=== PATIENT | female | born 1935 | race African-American/Black ===

== ENCOUNTER 2016-05-07 11:57 | Inpatient (IN) | payer OTHER ==
[~2016-05-07] VITALS: Ht 165.1 cm; Wt 81.6 kg
[~2016-05-07 11:57] MED LIST: IBUP-1007 PO
[2016-05-07 16:05] VITALS: BP 123/57
[2016-05-07 18:54] VITALS: BP 123/57
[2016-05-07 18:58] LABS: BASO # 0.1 x10^3/uL (0.0-0.2); BASO % 1 % (0-3); EOS % 2 % (0-3); LYMPH # 3.4 x10^3/uL (1.0-4.8); LYMPH % 40 % (24-48); MEAN CORPUSCULAR HEMOGLOBIN 20 pg (25-35); MEAN CORPUSCULAR HGB CONC 31 g/dL (31-37); MEAN CORPUSCULAR VOLUME 65 fL (79-100); MONO % 8 % (0-9); NEUT % 50 % (31-73); PLATELET COUNT 491 x10^3/uL (140-400); RED BLOOD COUNT 2.82 x10^6/uL (3.50-5.40); RED CELL DISTRIBUTION WIDTH 18.9 % (11.5-14.5); WHITE BLOOD COUNT 8.5 x10^3/uL (4.0-11.0)
[2016-05-07 19:00] VITALS: BP 108/53
[2016-05-07] MEDS ORDERED: ALPRAZOLAM 0.25 MG TABLET PO PRN (19:00)
[2016-05-07 19:04] LABS: HEMATOCRIT 18.3 % (36.0-47.0); HEMOGLOBIN 5.6 g/dL (12.0-15.5)
[2016-05-07 19:14] LABS: % SAT IRON 3 % (15-34); IRON,SERUM 12 ug/dL (50-170)
[2016-05-07] MEDS ORDERED: OMEP40CA5 PO (19:20)
[2016-05-07] MEDS ORDERED: HYDR12.53 PO (19:20)
[2016-05-07] MEDS ORDERED: MAGN400T22 PO (19:23)
[2016-05-07 19:30] LABS: ALBUMIN/GLOBULIN RATIO 0.7 (1.0-1.7); CALCIUM 8.4 mg/dL (8.5-10.1); CREATININE 0.9 mg/dL (0.6-1.0); GFR 72.5; POTASSIUM 3.9 mmol/L (3.5-5.1); TOTAL BILIRUBIN 0.4 mg/dL (0.2-1.0); TOTAL PROTEIN 7.4 g/dL (6.4-8.2)
[2016-05-07] MEDS: POTASSIUM CL 20MEQ D5-0.45NACL 1,000 ML IV SCH (19:34)
[2016-05-07 19:59] LABS: ANISOCYTOSIS SLIGHT; HYPOCHROMIA MARKED; MICROCYTOSIS MARKED; PLT ESTIMATE INCREASED (ADEQUATE); POLYCHROMASIA SLIGHT
[2016-05-07 20:00] LABS: SCHISTOCYTES FEW; TARGET CELLS OCC
[2016-05-07 21:04] LABS: BILIRUBIN,URINE NEGATIVE (NEG); GLUCOSE,URINE NEGATIVE (NEG); NITRITE,URINE POSITIVE (NEG); PROTEIN,URINE NEGATIVE (NEG-TRACE); UROBILINOGEN,URINE 0.2 mg/dL (0.2 mg/dL)
[2016-05-07 21:12] LABS: BACTERIA,URINE FEW /HPF (0-FEW); RBC,URINE 0 /HPF (0-2); SQUAMOUS EPITHELIAL CELL,UR MANY /LPF
[2016-05-07] MEDS: SMZ/TMP 800/160MG TABLET. PO SCH (22:04)
[2016-05-07 23:00] VITALS: BP 113/55
[2016-05-08 03:00] VITALS: BP 110/63
[2016-05-08 05:05] LABS: RED BLOOD COUNT 2.62 x10^6/uL (3.50-5.40); RED CELL DISTRIBUTION WIDTH 18.9 % (11.5-14.5); WHITE BLOOD COUNT 5.9 x10^3/uL (4.0-11.0)
[2016-05-08 05:13] LABS: HEMOGLOBIN 5.2 g/dL (12.0-15.5)
[2016-05-08 05:31] LABS: CALCIUM 8.5 mg/dL (8.5-10.1); CREATININE 0.8 mg/dL (0.6-1.0); GFR 83.1
[2016-05-08 06:34] LABS: NEG OBC FOB NEG; POS OBC FOB POS
[2016-05-08 07:00] VITALS: BP 111/57
[2016-05-08] MEDS: PANTOPRAZOLE 40 MG TABLET. PO SCH (08:24)
[2016-05-08] MEDS: SMZ/TMP 800/160MG TABLET. PO SCH ×2 (08:24→22:19)
[2016-05-08] MEDS: POTASSIUM CL 20MEQ D5-0.45NACL 1,000 ML IV SCH (08:29)
--- NOTE | 2016-05-08 09:00 | RAD ---
Indication anemia. Possible internal bleeding. PA and lateral views of the chest were obtained. Comparison is made to an examination 11/26/2015. Note is made of CT examinations of the chest 11/29/2015 and 03/17/2016. There is some interstitial prominence relative to the previous exam suggesting mild interstitial edema. Interstitial pneumonitis is not entirely excluded. There is no consolidated pneumonia. Significant pleural fluid is not present. There is no pneumothorax. There is slight wedging of midthoracic vertebral body segments likely chronic and appearing similar. IMPRESSION: No consolidated pneumonia seen. Mild interstitial prominence suggesting mild interstitial edema or interstitial pneumonitis. Clinical correlation advised
[2016-05-08] MEDS ORDERED: FERRIC CARBOXYMALTOSE 750 MG in IV NORMAL SALINE 250ML 250 ML IV ONE (09:45)
--- NOTE | 2016-05-08 09:56 | PDOC2 ---
GI CONSULT Reason For Consult: Anemia HPI: HPI: 81 y/o female admitted by her PCP, Dr. Batres, who she has seen for about 2 years since moving to from [place], [place]. Labs significant for Hgb 5.6 ( recheck 5.2) w/ low indices and low iron. Hemoccult was negative. Transfusion was ordered; she has declined. She is asymptomatic and "feels great." She reports a lifelong h/o anemia w/ normal colonoscopy years ago. No previous EGD. She took iron at one point but stopped because it made her feel strange. Denies n/v, reflux/dyspepsia, dysphagia, weight loss, change in appetite, bloating, abdominal pain, diarrhea, constipation, hematemesis, hematuria, hematochezia, and melena. Home med list shows ibuprofen and omeprazole; she denies taking these but says she takes hydrocodone for leg pain. She is on Bactrim for UTI along w/ PPI. Has been NPO otherwise. PMH: PMH: HTN, HLD FH: Family History: Cancer (breast) Social History: Smoke: No Drugs: None ROS: GEN: Denies fevers, chills, sweats HEENT: Denies blurred vision, sore throat CV: Denies chest pain RESP: Denies shortness of air, cough GI: Per HPI : Denies hematuria, dysuria ENDO: Denies weight changes NEURO: Denies confusion, dizziness MSK: occasional leg pain SKIN: Denies jaundice, pruritus VItals: Vitals: Vital Signs Date Time Temp Pulse Resp B/P Pulse Ox O2 Delivery O2 Flow Rate FiO2 05/08/16 08:16 Room Air 05/08/16 07:00 98.7 83 18 111/57 96 98.7 Labs: Labs: Laboratory Tests Test 05/07/16 18:35 05/07/16 20:40 05/08/16 04:30 White Blood Count 8.5x10^3/uL (4.0-11.0) 5.9x10^3/uL (4.0-11.0) Red Blood Count 2.82x10^6/uL (3.50-5.40) 2.62x10^6/uL (3.50-5.40) Hemoglobin 5.6g/dL (12.0-15.5) 5.2g/dL (12.0-15.5) Hematocrit 18.3% (36.0-47.0) 17.0% (36.0-47.0) Mean Corpuscular Volume 65fL (79-100) 65fL (79-100) Mean Corpuscular Hemoglobin 20pg (25-35) 20pg (25-35) Mean Corpuscular Hemoglobin Concent 31g/dL (31-37) 30g/dL (31-37) Red Cell Distribution Width 18.9% (11.5-14.5) 18.9% (11.5-14.5) Platelet Count 491x10^3/uL (140-400) 451x10^3/uL (140-400) Neutrophils (%) (Auto) 50% (31-73) Lymphocytes (%) (Auto) 40% (24-48) Monocytes (%) (Auto) 8% (0-9) Eosinophils (%) (Auto) 2% (0-3) Basophils (%) (Auto) 1% (0-3) Neutrophils # (Auto) 4.3x10^3uL (1.8-7.7) Lymphocytes # (Auto) 3.4x10^3/uL (1.0-4.8) Monocytes # (Auto) 0.6x10^3/uL (0.0-1.1) Eosinophils # (Auto) 0.1x10^3/uL (0.0-0.7) Basophils # (Auto) 0.1x10^3/uL (0.0-0.2) Segmented Neutrophils % 54% (35-66) Lymphocytes % 38% (24-48) Monocytes % 8% (0-10) Platelet Estimate Increased (ADEQUATE) Polychromasia Slight Hypochromasia Marked Anisocytosis Slight Microcytosis Marked Target Cells Occ Schistocytes Few Sodium Level 140mmol/L (136-145) 143mmol/L (136-145) Potassium Level 3.9mmol/L (3.5-5.1) 4.0mmol/L (3.5-5.1) Chloride Level 104mmol/L (98-107) 107mmol/L (98-107) Carbon Dioxide Level 28mmol/L (21-32) 27mmol/L (21-32) Anion Gap 8 (6-14) 9 (6-14) Blood Urea Nitrogen 19mg/dL (7-20) 17mg/dL (7-20) Creatinine 0.9mg/dL (0.6-1.0) 0.8mg/dL (0.6-1.0) Estimated GFR (Cockcroft-Gault) 72.5 83.1 BUN/Creatinine Ratio 21 (6-20) Glucose Level 115mg/dL (70-99) 92mg/dL (70-99) Calcium Level 8.4mg/dL (8.5-10.1) 8.5mg/dL (8.5-10.1) Iron Level 12ug/dL (50-170) Total Iron Binding Capacity 438ug/dL (250-450) Iron Saturation 3% (15-34) Ferritin 7ng/mL (8-252) Total Bilirubin 0.4mg/dL (0.2-1.0) Aspartate Amino Transf (AST/SGOT) 34U/L (15-37) Alanine Aminotransferase (ALT/SGPT) 31U/L (14-59) Alkaline Phosphatase 69U/L (46-116) Total Protein 7.4g/dL (6.4-8.2) Albumin 3.0g/dL (3.4-5.0) Albumin/Globulin Ratio 0.7 (1.0-1.7) Urine Collection Type Unknown Urine Color Yellow Urine Clarity Clear Urine pH 7.0 Urine Specific [place] 1.015 Urine Protein Negativemg/dL (NEG-TRACE) Urine Glucose (UA) Negativemg/dL (NEG) Urine Ketones (Stick) Negativemg/dL (NEG) Urine Blood Negative (NEG) Urine Nitrite Positive (NEG) Urine Bilirubin Negative (NEG) Urine Urobilinogen Dipstick 0.2mg/dL (0.2 mg/dL) Urine Leukocyte Esterase Large (NEG) Urine RBC 0/HPF (0-2) Urine WBC 11-20/HPF (0-4) Urine Squamous Epithelial Cells Many/LPF Urine Bacteria Few/HPF (0-FEW) Urine Mucus Slight/LPF Stool Occult Blood Negative (NEG) Allergies: Coded Allergies: No Known Drug Allergies (Unverified , 11/26/15) Medications: Current Medications Medications (Trade) Dose Ordered Sig/Becky Route PRN Reason Start Time Stop Time Status Last Admin Dose Admin Potassium Chloride/Dextrose/ Sod Cl (KCl 20 Meq In D5W-1/2 NS) 1,000 ml @ 75 mls/hr [id number] IV 05/07/16 17:30 05/08/16 08:29 Pantoprazole Sodium (Protonix) 40 mg DAILYAC PO 05/08/16 07:30 05/08/16 08:24 Trimethoprim/ Sulfamethoxazole (Bactrim Ds) 1 tab BID PO 05/07/16 22:00 05/08/16 08:24 PE: GEN: NAD HEENT: Atraumatic, PERRL LUNGS: CTAB HEART: RR ABD: NABS, S/ND/NT EXTREMITY: No edema SKIN: No rashes, no jaundice NEURO/PSYCH: A & O 3 A/P: A/P: DERRICK -seems long history of this -Hgb in 5s - refusing transfusion -asymptomatic CRC screen -reports normal colonoscopy years ago -- Keep NPO for EGD this afternoon w/ Dr. Whitley r/o upper GI source - pt agreeable. D/w GI lab. ANEUDY RAYMUNDO May 08, 2016 09:55
[2016-05-08 11:00] VITALS: BP 131/72
--- NOTE | 2016-05-08 11:09 | PDOC ---
OBJECTIVE Vital Signs Vital Signs Date Time Temp Pulse Resp B/P Pulse Ox O2 Delivery O2 Flow Rate FiO2 05/08/16 08:16 Room Air 05/08/16 07:00 98.7 83 18 111/57 96 Room Air 98.7 05/08/16 03:00 98.3 84 20 110/63 96 Room Air 98.3 05/07/16 23:00 98.5 83 20 113/55 94 Room Air 98.5 05/07/16 20:00 Room Air 05/07/16 19:00 98.1 86 20 108/53 92 Room Air 98.1 05/07/16 18:54 98.5 89 123/57 99 98.5 05/07/16 18:25 Room Air 05/07/16 16:05 98.5 89 20 123/57 99 Room Air 98.5 I & O Intake and Output 05/08/16 07:00 Intake Total 280 ml Output Total 800 ml Balance -520 ml Intake Oral 280 ml Output Urine Total 800 ml # Voids 3 # Bowel Movements 1 ASSESSMENT/PLAN Assessment/Plan [id number] H&P dictated Problems: COMMENT Lab Laboratory Tests Test 05/07/16 18:35 05/07/16 20:40 05/08/16 04:30 White Blood Count 8.5x10^3/uL (4.0-11.0) 5.9x10^3/uL (4.0-11.0) Red Blood Count 2.82x10^6/uL (3.50-5.40) 2.62x10^6/uL (3.50-5.40) Hemoglobin 5.6g/dL (12.0-15.5) 5.2g/dL (12.0-15.5) Hematocrit 18.3% (36.0-47.0) 17.0% (36.0-47.0) Mean Corpuscular Volume 65fL (79-100) 65fL (79-100) Mean Corpuscular Hemoglobin 20pg (25-35) 20pg (25-35) Mean Corpuscular Hemoglobin Concent 31g/dL (31-37) 30g/dL (31-37) Red Cell Distribution Width 18.9% (11.5-14.5) 18.9% (11.5-14.5) Platelet Count 491x10^3/uL (140-400) 451x10^3/uL (140-400) Neutrophils (%) (Auto) 50% (31-73) Lymphocytes (%) (Auto) 40% (24-48) Monocytes (%) (Auto) 8% (0-9) Eosinophils (%) (Auto) 2% (0-3) Basophils (%) (Auto) 1% (0-3) Neutrophils # (Auto) 4.3x10^3uL (1.8-7.7) Lymphocytes # (Auto) 3.4x10^3/uL (1.0-4.8) Monocytes # (Auto) 0.6x10^3/uL (0.0-1.1) Eosinophils # (Auto) 0.1x10^3/uL (0.0-0.7) Basophils # (Auto) 0.1x10^3/uL (0.0-0.2) Segmented Neutrophils % 54% (35-66) Lymphocytes % 38% (24-48) Monocytes % 8% (0-10) Platelet Estimate Increased (ADEQUATE) Polychromasia Slight Hypochromasia Marked Anisocytosis Slight Microcytosis Marked Target Cells Occ Schistocytes Few Sodium Level 140mmol/L (136-145) 143mmol/L (136-145) Potassium Level 3.9mmol/L (3.5-5.1) 4.0mmol/L (3.5-5.1) Chloride Level 104mmol/L (98-107) 107mmol/L (98-107) Carbon Dioxide Level 28mmol/L (21-32) 27mmol/L (21-32) Anion Gap 8 (6-14) 9 (6-14) Blood Urea Nitrogen 19mg/dL (7-20) 17mg/dL (7-20) Creatinine 0.9mg/dL (0.6-1.0) 0.8mg/dL (0.6-1.0) Estimated GFR (Cockcroft-Gault) 72.5 83.1 BUN/Creatinine Ratio 21 (6-20) Glucose Level 115mg/dL (70-99) 92mg/dL (70-99) Calcium Level 8.4mg/dL (8.5-10.1) 8.5mg/dL (8.5-10.1) Iron Level 12ug/dL (50-170) Total Iron Binding Capacity 438ug/dL (250-450) Iron Saturation 3% (15-34) Ferritin 7ng/mL (8-252) Total Bilirubin 0.4mg/dL (0.2-1.0) Aspartate Amino Transf (AST/SGOT) 34U/L (15-37) Alanine Aminotransferase (ALT/SGPT) 31U/L (14-59) Alkaline Phosphatase 69U/L (46-116) Total Protein 7.4g/dL (6.4-8.2) Albumin 3.0g/dL (3.4-5.0) Albumin/Globulin Ratio 0.7 (1.0-1.7) Urine Collection Type Unknown Urine Color Yellow Urine Clarity Clear Urine pH 7.0 Urine Specific [place] 1.015 Urine Protein Negativemg/dL (NEG-TRACE) Urine Glucose (UA) Negativemg/dL (NEG) Urine Ketones (Stick) Negativemg/dL (NEG) Urine Blood Negative (NEG) Urine Nitrite Positive (NEG) Urine Bilirubin Negative (NEG) Urine Urobilinogen Dipstick 0.2mg/dL (0.2 mg/dL) Urine Leukocyte Esterase Large (NEG) Urine RBC 0/HPF (0-2) Urine WBC 11-20/HPF (0-4) Urine Squamous Epithelial Cells Many/LPF Urine Bacteria Few/HPF (0-FEW) Urine Mucus Slight/LPF Stool Occult Blood Negative (NEG) JUAN TINEO MD May 08, 2016 11:09
[2016-05-08 11:21] LABS: FOLIC ACID >19.9 ng/mL (>3.0)
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
[2016-05-08] MEDS ORDERED: GLYCOPYRROLATE 1 MG/5 ML VIAL. ONE (13:20)
[2016-05-08] MEDS ORDERED: PROPOFOL 20 ML IV ONE (14:27)
[2016-05-08] MEDS ORDERED: METOPROLOL TARTRATE 5 MG/5 ML VIAL. ONE (14:28)
[2016-05-08] MEDS ORDERED: IV RINGERS,LACTATED 1000ML 1,000 ML IV ONE (14:30)
--- NOTE | 2016-05-08 14:42 | PDOC4 ---
PROCEDURE Procedure EGD/biopsies Indication: DERRICK/historically negative colonoscopy recently. Meds: per anesthesia. Findings: E-normal, GEJ at 35cm. G-Small HH, otherwise normal. Biopsies from antrum re: H.pylori. D-diverticulum in distal second portion, otherwise normal to 3rd portion. Biopsies second portion re: occult celiac. Tolerated well. Imp: HH duodenal 'tic. Rec: Await pathology. If no transfusion, at least iv or po iron? If transfused, OK to dismiss over the weekend unless other issue. Thanks. GLORIA ATKINS MD May 08, 2016 14:42
[2016-05-08 15:00] VITALS: BP 131/58
--- NOTE | 2016-05-08 15:34 | PDOC ---
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
[2016-05-08] MEDS ORDERED: IRON SUCROSE COMPLEX 500 MG in IV NORMAL SALINE 250ML 250 ML IV ONE (16:00)
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
--- NOTE | 2016-05-08 17:05 | RAD ---
Chest CT without contrast Clinical indications: Follow-up of mediastinal mass. Comparison: November 29, 2015 and March 17, 2016. Technique: Noncontrast helical CT scanning of the chest was performed. Without contrast, the sensitivity to detect organ pathology is decreased. PQRS Compliance Statement: One or more of the following individualized dose reduction techniques were utilized for this examination: 1. Automated exposure control 2. Adjustment of the mA and/or kV according to patient size 3. Use of iterative reconstruction technique Findings: Again seen is a round mass lesion within the anterior mediastinum with a peripheral calcified rim. This measures 3 cm in greatest dimension. Small posterior lobular process of this mass is seen which measures 9 mm. Both of these findings are unchanged. No enlarging thoracic lymphadenopathy is seen. The heart size is at the upper limits of normal. Calcified atheromatous disease of the coronary arteries is seen. No pericardial effusion is evident. A small hiatal hernia is seen. Calcified atheromatous disease of the thoracic aorta is seen. No focal aneurysmal dilatation is evident. Small infiltrate or atelectasis is seen within the posterior costophrenic angle on the right side. Mild atelectasis is seen within the posterior left lung base. Bilateral calcified granulomas are seen. No pleural effusion or pneumothorax is seen. No adrenal mass is seen. Again seen is a 3.4 cm cyst within the right lobe of liver. No osteolytic process is seen. IMPRESSION: Stable anterior mediastinal mass from November 29, 2015. Recommend continued chest CT follow-up in 6 months. New small lung infiltrate or atelectasis within the posterior right costophrenic angle.
[2016-05-08 19:00] VITALS: BP 115/56
[2016-05-08 23:00] VITALS: BP 132/61
[2016-05-09] VITALS (14 sets, daily range): BP systolic 116–163; BP diastolic 48–80
[2016-05-09] MEDS: POTASSIUM CL 20MEQ D5-0.45NACL 1,000 ML IV SCH ×2 (03:55→08:49)
[2016-05-09 04:54] LABS: RED BLOOD COUNT 2.69 x10^6/uL (3.50-5.40); RED CELL DISTRIBUTION WIDTH 18.7 % (11.5-14.5); WHITE BLOOD COUNT 7.8 x10^3/uL (4.0-11.0)
[2016-05-09 05:09] LABS: HEMATOCRIT 17.4 % (36.0-47.0); HEMOGLOBIN 5.4 g/dL (12.0-15.5)
[2016-05-09] MEDS: FERROUS SULFATE 325 MG TABLET PO SCH ×3 (08:48→20:30)
[2016-05-09] MEDS: PANTOPRAZOLE 40 MG TABLET. PO SCH (08:49)
[2016-05-09] MEDS: SMZ/TMP 800/160MG TABLET. PO SCH ×2 (08:49→20:30)
--- NOTE | 2016-05-09 12:06 | PDOC ---
Provider Note Provider Note getting prbc, vss, no new problems- hb 5.4, iron low, rest ok- has had egd, result na - will see in am unless dr ruiz discharges as she wishes, needs colonoscopy as well RADHA ENGLE MD May 09, 2016 12:06
--- NOTE | 2016-05-09 14:39 | PDOC ---
PULMONARY PROGRESS NOTES Subjective Afebrile, no complaints. No sob. No chest pain, pressure nor palpitations. Vitals Vital Signs Date Time Temp Pulse Resp B/P Pulse Ox O2 Delivery O2 Flow Rate FiO2 05/09/16 14:11 98.1 83 20 145/59 98.1 05/09/16 11:00 98 Room Air 05/08/16 14:40 2.0 ROS: No Nausea, No Chest Pain, No Abdominal Pain General: Alert, Oriented X4, No acute distress Lungs: Clear Cardiovascular: S1, S2 Abdomen: Soft, Non-tender Neuro Exam: Alert, Oriented, Normal Speech Extremities: No Edema Skin: Warm, Dry, No Rashes Labs Laboratory Tests Test 05/07/16 18:35 05/07/16 20:40 05/08/16 04:30 05/09/16 04:00 White Blood Count 8.5x10^3/uL (4.0-11.0) 5.9x10^3/uL (4.0-11.0) 7.8x10^3/uL (4.0-11.0) Red Blood Count 2.82x10^6/uL (3.50-5.40) 2.62x10^6/uL (3.50-5.40) 2.69x10^6/uL (3.50-5.40) Hemoglobin 5.6g/dL (12.0-15.5) 5.2g/dL (12.0-15.5) 5.4g/dL (12.0-15.5) Hematocrit 18.3% (36.0-47.0) 17.0% (36.0-47.0) 17.4% (36.0-47.0) Mean Corpuscular Volume 65fL (79-100) 65fL (79-100) 65fL (79-100) Mean Corpuscular Hemoglobin 20pg (25-35) 20pg (25-35) 20pg (25-35) Mean Corpuscular Hemoglobin Concent 31g/dL (31-37) 30g/dL (31-37) 31g/dL (31-37) Red Cell Distribution Width 18.9% (11.5-14.5) 18.9% (11.5-14.5) 18.7% (11.5-14.5) Platelet Count 491x10^3/uL (140-400) 451x10^3/uL (140-400) 484x10^3/uL (140-400) Neutrophils (%) (Auto) 50% (31-73) Lymphocytes (%) (Auto) 40% (24-48) Monocytes (%) (Auto) 8% (0-9) Eosinophils (%) (Auto) 2% (0-3) Basophils (%) (Auto) 1% (0-3) Neutrophils # (Auto) 4.3x10^3uL (1.8-7.7) Lymphocytes # (Auto) 3.4x10^3/uL (1.0-4.8) Monocytes # (Auto) 0.6x10^3/uL (0.0-1.1) Eosinophils # (Auto) 0.1x10^3/uL (0.0-0.7) Basophils # (Auto) 0.1x10^3/uL (0.0-0.2) Segmented Neutrophils % 54% (35-66) Lymphocytes % 38% (24-48) Monocytes % 8% (0-10) Platelet Estimate Increased (ADEQUATE) Polychromasia Slight Hypochromasia Marked Anisocytosis Slight Microcytosis Marked Target Cells Occ Schistocytes Few Sodium Level 140mmol/L (136-145) 143mmol/L (136-145) Potassium Level 3.9mmol/L (3.5-5.1) 4.0mmol/L (3.5-5.1) Chloride Level 104mmol/L (98-107) 107mmol/L (98-107) Carbon Dioxide Level 28mmol/L (21-32) 27mmol/L (21-32) Anion Gap 8 (6-14) 9 (6-14) Blood Urea Nitrogen 19mg/dL (7-20) 17mg/dL (7-20) Creatinine 0.9mg/dL (0.6-1.0) 0.8mg/dL (0.6-1.0) Estimated GFR (Cockcroft-Gault) 72.5 83.1 BUN/Creatinine Ratio 21 (6-20) Glucose Level 115mg/dL (70-99) 92mg/dL (70-99) Calcium Level 8.4mg/dL (8.5-10.1) 8.5mg/dL (8.5-10.1) Iron Level 12ug/dL (50-170) Total Iron Binding Capacity 438ug/dL (250-450) Iron Saturation 3% (15-34) Ferritin 7ng/mL (8-252) Total Bilirubin 0.4mg/dL (0.2-1.0) Aspartate Amino Transf (AST/SGOT) 34U/L (15-37) Alanine Aminotransferase (ALT/SGPT) 31U/L (14-59) Alkaline Phosphatase 69U/L (46-116) Total Protein 7.4g/dL (6.4-8.2) Albumin 3.0g/dL (3.4-5.0) Albumin/Globulin Ratio 0.7 (1.0-1.7) Vitamin B12 Level 702pg/mL (211-946) Folic Acid (LAB) >19.9ng/mL (>3.0) Urine Collection Type Unknown Urine Color Yellow Urine Clarity Clear Urine pH 7.0 Urine Specific [place] 1.015 Urine Protein Negativemg/dL (NEG-TRACE) Urine Glucose (UA) Negativemg/dL (NEG) Urine Ketones (Stick) Negativemg/dL (NEG) Urine Blood Negative (NEG) Urine Nitrite Positive (NEG) Urine Bilirubin Negative (NEG) Urine Urobilinogen Dipstick 0.2mg/dL (0.2 mg/dL) Urine Leukocyte Esterase Large (NEG) Urine RBC 0/HPF (0-2) Urine WBC 11-20/HPF (0-4) Urine Squamous Epithelial Cells Many/LPF Urine Bacteria Few/HPF (0-FEW) Urine Mucus Slight/LPF Stool Occult Blood Negative (NEG) Laboratory Tests Test 05/09/16 04:00 White Blood Count 7.8x10^3/uL (4.0-11.0) Red Blood Count 2.69x10^6/uL (3.50-5.40) Hemoglobin 5.4g/dL (12.0-15.5) Hematocrit 17.4% (36.0-47.0) Mean Corpuscular Volume 65fL (79-100) Mean Corpuscular Hemoglobin 20pg (25-35) Mean Corpuscular Hemoglobin Concent 31g/dL (31-37) Red Cell Distribution Width 18.7% (11.5-14.5) Platelet Count 484x10^3/uL (140-400) Medications Active Scripts Medications Dose Route/Sig Days Date Category Mag-Oxide (Magnesium Oxide) 400 Mg Tablet 1 Tab PO BID 05/07/16 Reported Hydrochlorothiazide Capsule (Hydrochlorothiazide) 12.5 Mg Capsule 2 Cap PO DAILY 05/07/16 Reported Omeprazole 40 Mg Capsule.dr 1 Cap PO DAILY 05/07/16 Reported Ibuprofen 600 Mg Tablet 600 Mg PO PRN Q6HRS PRN 11/26/[address] Chest 05/08/16: a round mass lesion within the anterior mediastinum with a peripheral calcified rim. This measures 3 cm in greatest dimension. Small posterior lobular process of this mass is seen which measures 9 mm. Both of these findings are unchanged. No enlarging thoracic lymphadenopathy is seen. The heart size is at the upper limits of normal. Calcified atheromatous disease of the coronary arteries is seen. No pericardial effusion is evident. A small hiatal hernia is seen. Calcified atheromatous disease of the thoracic aorta is seen. No focal aneurysmal dilatation is evident. Small infiltrate or atelectasis is seen within the posterior costophrenic angle on the right side. Mild atelectasis is seen within the posterior left lung base. Bilateral calcified granulomas are seen. No pleural effusion or pneumothorax is seen. No adrenal mass is seen. Again seen is a 3.4 cm cyst within the right lobe of liver. No osteolytic process is seen. Impression . IMPRESSION: 1. Partially calcified unchanged mediastinal mass which was seen initially in November and remain unchanged on 03/17/2016, CT chest. 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 2. Abnormal chest x-ray was slightly prominent interstitial markings may be related to mild anemic heart failure. Clinically, asymptomatic. 3. No significant history of tobacco use. 4. Acute on chronic anemia to be managed by GI. Plan . RECOMMENDATIONS: 1. CT chest with no change to mediastinal mass. Follow up CT scan in 6 months. 2. Management of anemia per GI. - transfused this Am. No apparent difficulties. 3. Follow results of EGD. 4. Further dispo per PCP 5. Ok from Pulm standpoint to DC to home when cleared by other services. FREIDA LANE MD May 09, 2016 14:38
[2016-05-10] MEDS: POTASSIUM CL 20MEQ D5-0.45NACL 1,000 ML IV SCH (01:51)
[2016-05-10 03:59] VITALS: BP 130/66
[2016-05-10 07:00] VITALS: BP 124/56
[2016-05-10] MEDS: SMZ/TMP 800/160MG TABLET. PO SCH (08:32)
[2016-05-10] MEDS: FERROUS SULFATE 325 MG TABLET PO SCH ×2 (08:32→14:23)
[2016-05-10] MEDS: PANTOPRAZOLE 40 MG TABLET. PO SCH (08:32)
--- NOTE | 2016-05-10 09:15 | DISCH ---
DISCHARGE INSTRUCTIONS Condition on Discharge Condition on Discharge: Stable Activity After Discharge Activity Instructions for Disc: Activity as tolerated Diet after Discharge Diet after Discharge: Regular Follow-Up Follow up with: as scheduled RADHA ENGLE MD May 10, 2016 09:15
--- NOTE | 2016-05-10 09:25 | PDOC ---
Provider Note Provider Note [id number] RADHA ENGLE MD May 10, 2016 09:25
[2016-05-10 09:55] LABS: HEMATOCRIT 26.8 % (36.0-47.0); HEMOGLOBIN 8.7 g/dL (12.0-15.5); RED BLOOD COUNT 3.91 x10^6/uL (3.50-5.40); WHITE BLOOD COUNT 7.2 x10^3/uL (4.0-11.0)
[2016-05-10 11:00] VITALS: BP 130/70
--- NOTE | 2016-05-10 15:16 | DS ---
DATE OF DISCHARGE: 05/10/2016 HOSPITAL SUMMARY: An 81-year-old black female with a long history of iron deficiency anemia, who came in because of increasing weakness, fatigue, and shortness of breath and has decided ultimately to have transfusions and a GI workup done. Her admitting hemoglobin was 5.6, low MCV of 65, platelets were high and on 05/09/2016, prior to transfusion, the hemoglobin was still 5.4. After 2 units, her hemoglobin is pending at this time. Chemistry profile was unremarkable. B12 and folic acid were normal. Iron was low at 12. TIBC high at 438 and ferritin low at 7. Urine showed white blood cells and positive nitrite, but urine culture only grew out urogenital violetta. Stool for occult blood was negative. CT scan of the chest showed a stable anterior mediastinal mass that is calcified and suspected to be a thymoma without growth. Chest x-ray unchanged as well. She underwent EGD in the hospital, which was reportedly normal and she has been given 2 units of packed red blood cells and is feeling better. I recommended further transfusions today if her hemoglobin is around 7 as suspected, but she has declined, wishes to go home prior to lab value being known and will consider a colonoscopy as an outpatient, though she has not decided whether she will pursue that procedure that is needed or not. FINAL DIAGNOSES: 1. Chronic iron deficiency anemia, etiology undetermined. 2. 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 OPERATIONS AND PROCEDURES: EGD. COMPLICATIONS: None. CONSULTATIONS: Dr. Diego, Dr. Fall. DISPOSITION: No home meds. She is to resume iron tablets twice a day. No aspirin, Aleve, or ibuprofen products. Follow up with Dr. Batres as scheduled in 1 week for repeat hemoglobin and further evaluation from there. Prognosis is guarded given the unknown etiology of her iron deficiency. RADHA ENGLE MD DR: FRANCIS/yuri JOB#: [id number] / [id number]
--- NOTE | 2016-05-12 16:39 | PATHOLOGY ---
PATHOLOGY REPORT * * * * * * * * FINAL DIAGNOSIS: A. Duodenal biopsy, second portion duodenum: - No significant pathologic abnormalities. B. Gastric biopsy, antrum: - Chronic gastritis, mild. COMMENT: Sections of the second portion duodenum biopsy reveal segments of duodenal mucosa. Where best-oriented, the mucosal villi appear normal. There are no sprue-like changes or significant inflammatory changes. Sections of the gastric biopsy reveal segments of gastric antral and antral/body transition mucosa showing mild chronic inflammation. An immunoperoxidase stain for Helicobacter is obtained. No Helicobacter organisms are identified. There is no evidence of malignancy. (JPM:csd; d/t: 05/12/2016) Immunoperoxidase stains: Helicobacter pylori (B1) REPORT ELECTRONICALLY SIGNED BY: Akil Granados M.D. DATE/TIME: 05/12/2016 16:37 * * * * * * * * GROSS PATHOLOGY: A. Received in formalin labeled "Anthony Man, second part duodenum," are two segments of victoria soft tissue measuring 0.5 x 0.5 x 0.1 cm in aggregate dimensions and ranging from 0.4 to 0.5 cm in maximum dimension. The specimen is submitted entirely in cassette A1. B. Received in formalin labeled "Anthony Man, antrum," are two segments of victoria soft tissue measuring 0.7 x 0.4 x 0.1 cm in aggregate dimensions and ranging from 0.2 to 0.7 cm in maximum dimension. The specimen is submitted entirely in cassette B1. (CAA; 05/11/2016) INITIAL CPT CODE(S): A; 52903 B; 67167, 37812 Professional services [place] [place] [address] Technical services performed by [facility] at [address] [place] [address], [facility] [address] [address]. SPECIMEN(S) RECEIVED: A.2nd portion duodenum B.Antrum CLINICAL HISTORY: Anemia PATIENT: ANTHONY MAN /AGE: 10 1935 (Age: 81) PATIENT #: [id number] ALT CASE #: SPECIMEN COLLECTION DATE: 05/08/2016 SPECIMEN RECEIVED DATE: 05/11/2016 [facility] - [address] [place] [address] - PHONE: [phone] * * * END OF REPORT * * *
== END 2016-05-10 15:15 | disposition home or self-care (01) | DRG 812 ==
LOC: 5 SOUTH 15:52
PROVIDERS: ADMIT Internal Medicine; ATTEND Internal Medicine
PROC: 30233N1 Transfusion of Nonautologous Red Blood Cells into Peripheral Vein, Percutaneous Approach (ICD-10-PCS; principal; 2016-05-07)
PROC: 0DB68ZX Excision of Stomach, Via Natural or Artificial Opening Endoscopic, Diagnostic (ICD-10-PCS; 2016-05-08)
PROC: 0DB98ZX Excision of Duodenum, Via Natural or Artificial Opening Endoscopic, Diagnostic (ICD-10-PCS; 2016-05-08 15:00)
DX: D50.9 Iron deficiency anemia, unspecified (principal); E44.1 Mild protein-calorie malnutrition; E78.5 Hyperlipidemia, unspecified; I10 Essential (primary) hypertension; D15.0 Benign neoplasm of thymus; K21.9 Gastro-esophageal reflux disease without esophagitis; M19.90 Unspecified osteoarthritis, unspecified site; M81.0 Age-related osteoporosis without current pathological fracture; Z80.3 Family history of malignant neoplasm of breast; Z87.440 Personal history of urinary (tract) infections; K44.9 Diaphragmatic hernia without obstruction or gangrene
CPT/HCPCS: 36415; 71020; 71250; 80048; 80053; 81001; 82274; 82607; 82728; 82746; 83540; 83550; 85007; 85027; 86850; 86900; 86901; 86920; 87086; 88305; 88342; J1756; J2704; J3490; J7050; J7120; P9016; G0641; J7030

== ENCOUNTER → 2016-12-11 | Outpatient (CLI) | payer OTHER ==
[~2016-12-11] MED LIST changes: +HYDR12.53 PO; +MAGN400T22 PO; +OMEP40CA5 PO
--- NOTE | 2016-12-11 16:59 | RAD ---
X-rays Indication: Status post-ORIF of right intertrochanteric fracture in October 2016. Technique: AP and frog-leg view of the right hip Comparison: None Findings: Status post ORIF of intertrochanteric fracture. No periprosthetic lucency to suggest hardware loosening. No acute fractures or dislocation. Osteopenia of the bones. Impression: As above.
== END | disposition home or self-care (01) ==
LOC: RAD 11:01
PROVIDERS: ATTEND Orthopaedic Surgery Sports Medicine
DX: S72.141D Displaced intertrochanteric fracture of right femur, subsequent encounter for closed fracture with routine healing (principal); M85.861 Other specified disorders of bone density and structure, right lower leg; X58.XXXD Exposure to other specified factors, subsequent encounter
CPT/HCPCS: 73502

== ENCOUNTER → 2016-12-14 | Outpatient (CLI) | payer OTHER ==
[~2016-12-14] MED LIST changes: +IOHEXOL 300 MG/ML 75 ML VIAL IV ONE
--- NOTE | 2016-12-14 12:03 | RAD ---
Exam performed: CT chest with contrast History: History of colon cancer follow-up. Date of service: 12/14/16. Comparison: CT chest without contrast from 05/08/16, 1120 01/02 and 11/29/2015. Technique: Contiguous helical acquisitions are obtained through the chest during intravenous administration of 75 cc of Omnipaque 300. Sagittal and coronal reformatted images are obtained and reviewed. Findings: Structures at the thoracic inlet including both lobes of the thyroid gland appear grossly normal. The neck and intrathoracic great vessels appear normal in course and caliber however there is mild atheromatous calcification of the aorta and coronary arteries. Heart size is normal without pericardial effusion. A peripherally calcified nodule measuring 3.2 x 2.5 cm with a 9 mm lobulated process is seen in the anterior mediastinum anteroinferior to the aortic arch remains stable. No abnormal mediastinal adenopathy is seen. The lungs are well expanded and clear with a calcified nodule in the left lung base. There is no pleural effusion or pneumothorax. Stable right hepatic lobe cyst. The spleen, pancreas, gallbladder and visualized kidneys are normal. Small hiatal hernia. Impression: Stable nodule with peripheral calcification in the anterior mediastinum. A six-month follow-up CT scan is recommended to ensure interval stability. PQRS Compliance Statement: One or more of the following individualized dose reduction techniques were utilized for this examination: 1. Automated exposure control 2. Adjustment of the mA and/or kV according to patient size 3. Use of iterative reconstruction technique
== END | disposition home or self-care (01) ==
LOC: CT 08:40
PROVIDERS: ATTEND Internal Medicine Hematology & Oncology
DX: C18.9 Malignant neoplasm of colon, unspecified (principal); K44.9 Diaphragmatic hernia without obstruction or gangrene
CPT/HCPCS: 71260; Q9967

== ENCOUNTER → 2017-01-07 | Outpatient (CLI) | payer OTHER ==
[~2017-01-07] MED LIST changes: -IOHEXOL 300 MG/ML 75 ML VIAL IV ONE
--- NOTE | 2017-01-07 12:50 | KCIC ---
Examination: DEXA scan HISTORY: History of postmenopausal, close fracture of the right hip COMPARISON: None available FINDINGS: The bone mineral density in the lumbar spine is 0.774 g/sq cm with T score of -2.5, and Z score of -0.4 The bone mineral density in the left hip is 0.497 g/sq cm with a T score of -3.6 and the Z score of -1.8 IMPRESSION: Findings consistent with osteoporosis. Electronically signed by: Arnav Alfaro MD (01/07/2017 12:47 PM) [facility]
== END | disposition home or self-care (01) ==
LOC: KCIC DEXA 11:11
PROVIDERS: ATTEND Internal Medicine
DX: S72.009A Fracture of unspecified part of neck of unspecified femur, initial encounter for closed fracture (principal); Z78.0 Asymptomatic menopausal state; X58.XXXA Exposure to other specified factors, initial encounter; Y93.89 Activity, other specified; Y92.89 Other specified places as the place of occurrence of the external cause; Y99.8 Other external cause status
CPT/HCPCS: 77080

== ENCOUNTER → 2017-01-25 | Outpatient (CLI) | payer OTHER ==
[~2017-01-25] MED LIST changes: +CONTRAST GIVEN MC PRN; +IOHEXOL 240 MG/ML 50ML VIAL. PO ONE; +IOHEXOL 300 MG/ML 75 ML VIAL IV ONE
--- NOTE | 2017-01-25 12:19 | RAD ---
Exam performed: CT abdomen pelvis with contrast. History: History of colon cancer. Date of service: 01/25/17. Comparison: None available Technique: Contiguous helical acquisitions are obtained through the abdomen and pelvis during intravenous administration of 75 cc of Omnipaque 300. Oral contrast was given. Sagittal and coronal reformatted images are obtained. Findings: There is a an irregular low attenuating peripherally enhancing mass measuring 3.4 x 3.2 x 4.9 cm in in the right mid abdomen inferior to the liver and lateral to the right kidney (axial image 37, series 2). There is also a small soft tissue density 8 mm nodule in the right upper abdomen inferior to the liver (axial image 31, series 2). Questionable fullness lateral to the pancreatic head. There is a irregular low attenuating 4.5 x 1.8 x 2.8 cm in transverse AP and craniocaudal dimension mass in the right mid to lower abdomen. There are also smaller masses probably lymph nodes measuring 1.8 x 2.0 cm in the right mid abdomen, axial image 46, series 2. The lung bases are essentially clear. The visualized heart is normal. Liver is normal in size and attenuation. Numerous low attenuating abnormalities are seen in the liver. Spleen, pancreas, gallbladder appear normal. Both adrenal glands and bilateral kidneys are normal in size with symmetric excretion of contrast from both kidneys. There is no hydronephrosis or nephrolithiasis. Aorta is normal in caliber demonstrating mild atheromatous calcification. Small and large bowel loops are grossly normal. Urinary bladder is decompressed. The uterus is anteverted and myelitis containing numerous calcifications. No free fluid. No pelvic lymphadenopathy or mass lesion seen. Interrogation of bone windows demonstrates no bony abnormalities. Impression: 1. Multiple low attenuating hepatic masses, some of which appears cystic and represent hepatic cysts. Additional low attenuating masses may represent hepatic metastasis. 2. Soft tissue density mass is mainly in the right hemiabdomen probably metastatic in origin. Evaluation with nuclear medicine PET scan may be of additional benefit. 3. Diffuse colonic diverticulosis without acute diverticulitis. 4. Myomatous uterus. PQRS Compliance Statement: One or more of the following individualized dose reduction techniques were utilized for this examination: 1. Automated exposure control 2. Adjustment of the mA and/or kV according to patient size 3. Use of iterative reconstruction technique
== END | disposition home or self-care (01) ==
LOC: CT 12:56
PROVIDERS: ATTEND Internal Medicine Hematology & Oncology
DX: C18.9 Malignant neoplasm of colon, unspecified (principal); K76.89 Other specified diseases of liver; K57.30 Diverticulosis of large intestine without perforation or abscess without bleeding; D25.9 Leiomyoma of uterus, unspecified; I10 Essential (primary) hypertension; R16.0 Hepatomegaly, not elsewhere classified; Z85.038 Personal history of other malignant neoplasm of large intestine; Z79.899 Other long term (current) drug therapy
CPT/HCPCS: 74177; Q9966; Q9967

== ENCOUNTER → 2017-02-04 | Outpatient (CLI) | payer OTHER ==
[~2017-02-04] MED LIST changes: -CONTRAST GIVEN MC PRN; -IOHEXOL 240 MG/ML 50ML VIAL. PO ONE; -IOHEXOL 300 MG/ML 75 ML VIAL IV ONE
--- NOTE | 2017-02-04 12:57 | RAD ---
Indication colonic malignancy. Initial staging. PET/CT was performed from the skull base through the proximal thigh. CT was performed primarily for localization and attenuation purposes as opposed to primary diagnostic purposes. Note is made of the CT examination of the abdomen and pelvis 01/25/2017. For this examination 13 mCi of FDG was administered. Blood sugar during the examination was 108. No prior PET/CT imaging is available. On CT the visualized brain appears unremarkable. No abnormal activity is seen in the neck. In the chest there is a reasonably well-defined anterior mediastinal mass measuring approximately 2.6 cm in greatest dimension. There is some mild adenopathy immediately behind this dominant mass. No significant hilar adenopathy is seen. A dominant parenchymal finding in either lung is not seen. The abdomen and pelvis have not changed relative to the recent CT examination of same. Hepatic masses are noted. Again there is a suggested possible soft tissue mass in the right hemiabdomen. On PET the FDG is physiologically distributed in the brain. No abnormal activity is seen in the neck. In the chest there is no abnormal FDG focus. The mediastinal mass is not FDG avid and may represent a cyst. It is likely incidental. In the abdomen and pelvis there are multiple foci of abnormal uptake in the liver compatible with widespread hepatic metastatic disease. Maximum SUVs is approximately 12. There is, additionally, curvilinear increased FDG activity surrounding the dome of the liver. This is probably reflective of a small amount of malignant perihepatic fluid. Soft tissue mass in the right mid lateral abdomen is FDG avid. Maximum SUV approximately 10. This is compatible with a focus of malignant disease. Additional bowel loops in the same area demonstrate increased FDG activity. This is nonspecific and may be inflammatory. Postsurgical changes could account for some of the increased uptake. Malignancy is not excluded. There is a focus of increased FDG activity immediately adjacent to the aorta. Maximum SUV approximately 5.8. A corresponding mass is not definitely seen but metastatic disease involving a para-aortic lymph node would be the leading diagnostic consideration. IMPRESSION: Multiple FDG avid hepatic masses compatible with metastatic disease. Surrounding the dome of the liver is a curvilinear area of FDG activity likely reflecting a small perihepatic fluid collection containing malignant cells. In the right lateral abdomen there is a soft tissue mass which is FDG avid compatible with a focus of malignancy. There are adjacent FDG avid bowel loops which is nonspecific but metastatic disease is not excluded. Isolated FDG focus in a para-aortic distribution suggesting possible metastatic node disease Mediastinal mass, not FDG avid and likely incidental.
== END | disposition home or self-care (01) ==
LOC: PETSC 09:43
PROVIDERS: ATTEND Internal Medicine Hematology & Oncology
DX: R22.2 Localized swelling, mass and lump, trunk (principal); R16.0 Hepatomegaly, not elsewhere classified
CPT/HCPCS: 78815; A9552

== ENCOUNTER 2017-02-28 08:47 | Inpatient (IN) | payer OTHER ==
[~2017-02-28] VITALS: Ht 165.1 cm; Wt 64.9 kg
[2017-02-28] MEDS: POTASSIUM CL 20MEQ D5-0.45NACL 1,000 ML IV SCH ×2 (06:00→13:00)
--- NOTE | 2017-02-28 09:22 | PHYS DOC ---
Past Medical History Past Medical History: High Cholesterol, Heart Disease, Hypertension Past Surgical History: No Surgical History Alcohol Use: None Drug Use: None Adult General Chief Complaint Chief Complaint: NAUSEA/VOMITING/DIARRHA HPI HPI Patient is a 82 year old female with a history of colon cancer presents to the ED complaining of nausea and vomiting 2 days. History of colectomy (reversed) Sees Dr. Morris. States over the last 2 days she has not been able to eat. Yesterday she had one bite of mashed potatoes. States she is set to begin chemo soon but has not yet. Took anti-nausea medicine this morning with no improvement. Denies chest pain, abdominal pain, weakness, dizziness, fever, diarrhea or blood in stool. Review of Systems Review of Systems Constitutional: Denies fever or chills [] Eyes: Denies change in visual acuity, redness, or eye pain [] HENT: Denies nasal congestion or sore throat [] Respiratory: Denies cough or shortness of breath [] Cardiovascular: No additional information not addressed in HPI [] GI: Denies abdominal pain, nausea, vomiting, bloody stools or diarrhea [] : Denies dysuria or hematuria [] Musculoskeletal: Denies back pain or joint pain [] Integument: Denies rash or skin lesions [] Neurologic: Denies headache, focal weakness or sensory changes [] Endocrine: Denies polyuria or polydipsia [] All other systems were reviewed and found to be within normal limits, except as documented in this note. Current Medications Current Medications Current Medications Medications (Trade) Dose Ordered Sig/[facility] Start Time Stop Time Status Last Admin Dose Admin Ondansetron HCl (Zofran) 4 mg 1X ONCE 02/28/17 09:30 02/28/17 09:31 DC 02/28/17 09:50 4 MG Allergies Allergies Allergies Coded Allergies Type Severity Reaction Last Updated Verified No Known Drug Allergies 05/08/16 No Physical Exam Physical Exam Constitutional: Well developed, well nourished, no acute distress, non-toxic appearance. [] HENT: Normocephalic, atraumatic, bilateral external ears normal, oropharynx moist, no oral exudates, nose normal. [] Eyes: PERRLA, EOMI, conjunctiva normal, no discharge. [] Neck: Normal range of motion, no tenderness, supple, no stridor. [] Cardiovascular:Heart rate regular rhythm, no murmur [] Lungs & Thorax: Bilateral breath sounds clear to auscultation [] Abdomen: Bowel sounds normal, soft, no tenderness, no masses, no pulsatile masses. [] Skin: Warm, dry, no erythema, no rash. [] Back: No tenderness, no CVA tenderness. [] Extremities: No tenderness, no cyanosis, no clubbing, ROM intact, no edema. [] Neurologic: Alert and oriented X 3, normal motor function, normal sensory function, no focal deficits noted. [] Psychologic: Affect normal, judgement normal, mood normal. [] Current Patient Data Vital Signs Vital Signs Date Time Temp Pulse Resp B/P (MAP) Pulse Ox O2 Delivery O2 Flow Rate FiO2 02/28/17 09:22 98.9 86 16 122/63 (82) 98 Room Air 98.9 Lab Values Laboratory Tests Test 02/28/17 09:42 White Blood Count 9.6 x10^3/uL (4.0-11.0) Red Blood Count 4.05 x10^6/uL (3.50-5.40) Hemoglobin 11.9 g/dL (12.0-15.5) L Hematocrit 35.7 % (36.0-47.0) L Mean Corpuscular Volume 88 fL (79-100) Mean Corpuscular Hemoglobin 29 pg (25-35) Mean Corpuscular Hemoglobin Concent 33 g/dL (31-37) Red Cell Distribution Width 14.4 % (11.5-14.5) Platelet Count 393 x10^3/uL (140-400) Neutrophils (%) (Auto) 79 % (31-73) H Lymphocytes (%) (Auto) 12 % (24-48) L Monocytes (%) (Auto) 9 % (0-9) Eosinophils (%) (Auto) 1 % (0-3) Basophils (%) (Auto) 0 % (0-3) Neutrophils # (Auto) 7.6 x10^3uL (1.8-7.7) Lymphocytes # (Auto) 1.1 x10^3/uL (1.0-4.8) Monocytes # (Auto) 0.9 x10^3/uL (0.0-1.1) Eosinophils # (Auto) 0.1 x10^3/uL (0.0-0.7) Basophils # (Auto) 0.0 x10^3/uL (0.0-0.2) Prothrombin Time 16.8 SEC (11.7-14.0) H Prothrombin Time INR 1.5 (0.8-1.1) H PTT 39 SEC (24-38) H Sodium Level 128 mmol/L (136-145) L Potassium Level 3.1 mmol/L (3.5-5.1) L Chloride Level 87 mmol/L (98-107) L Carbon Dioxide Level 33 mmol/L (21-32) H Anion Gap 8 (6-14) Blood Urea Nitrogen 15 mg/dL (7-20) Creatinine 0.7 mg/dL (0.6-1.0) Estimated GFR (Cockcroft-Gault) 96.7 BUN/Creatinine Ratio 21 (6-20) H Glucose Level 104 mg/dL (70-99) H Calcium Level 9.1 mg/dL (8.5-10.1) Total Bilirubin 0.9 mg/dL (0.2-1.0) Aspartate Amino Transferase (AST) 30 U/L (15-37) Alanine Aminotransferase (ALT) 16 U/L (14-59) Alkaline Phosphatase 92 U/L (46-116) Creatine Kinase 35 U/L (26-192) Creatine Kinase MB (Mass) 2.3 ng/mL (0.0-3.6) Creatine Kinase MB Relative Index % (0-4) Total Protein 6.9 g/dL (6.4-8.2) Albumin 2.8 g/dL (3.4-5.0) L Albumin/Globulin Ratio 0.7 (1.0-1.7) L Lipase 71 U/L (73-393) L Laboratory Tests 02/28/17 09:42 Laboratory Tests 02/28/17 09:42 EKG EKG []Normal sinus rhythm at 84 bpm. Normal axis deviation. No STEMI. No T-wave changes. Radiology/Procedures Radiology/Procedures [] Course & Med Decision Making Course & Med Decision Making Pertinent Labs and Imaging studies reviewed. (See chart for details) No vomiting in ED. Well appearing. Abdomen is soft, nontender, nondistended. No peritoneal signs. 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 []Discussed case with PCP, Dr. Tineo. Agrees to admission and further management patient. Patient stable for admission. Dragon Disclaimer Dragon Disclaimer This electronic medical record was generated, in whole or in part, using a voice recognition dictation system. Departure Departure Impression: Primary Impression: Intractable vomiting Additional Impressions: Colon cancer Hypokalemia Hyponatremia Disposition: ADMITTED INPATIENT Admitting Physician: Juan Tineo Condition: STABLE Referrals: JUAN TINEO MD (PCP) Problem Qualifiers SHIV GORDILLO Feb 28, 2017 09:21
[2017-02-28] MEDS ORDERED: ONDANSETRON PF 4 MG/2 ML VIAL. IV ONE (09:30)
--- NOTE | 2017-02-28 10:01 | EKG ---
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
[2017-02-28 10:02] LABS: CALCIUM 9.1 mg/dL (8.5-10.1); CREATININE 0.7 mg/dL (0.6-1.0); GFR 96.7; POTASSIUM 3.1 mmol/L (3.5-5.1)
[2017-02-28 10:08] LABS: BASO % 0 % (0-3); EOS % 1 % (0-3); HEMATOCRIT 35.7 % (36.0-47.0); HEMOGLOBIN 11.9 g/dL (12.0-15.5); LYMPH # 1.1 x10^3/uL (1.0-4.8); LYMPH % 12 % (24-48); MEAN CORPUSCULAR HEMOGLOBIN 29 pg (25-35); MEAN CORPUSCULAR HGB CONC 33 g/dL (31-37); MEAN CORPUSCULAR VOLUME 88 fL (79-100); MONO % 9 % (0-9); NEUT % 79 % (31-73); PLATELET COUNT 393 x10^3/uL (140-400); RED BLOOD COUNT 4.05 x10^6/uL (3.50-5.40); RED CELL DISTRIBUTION WIDTH 14.4 % (11.5-14.5); WHITE BLOOD COUNT 9.6 x10^3/uL (4.0-11.0)
[2017-02-28 10:10] LABS: ALBUMIN 2.8 g/dL (3.4-5.0); ALBUMIN/GLOBULIN RATIO 0.7 (1.0-1.7); TOTAL BILIRUBIN 0.9 mg/dL (0.2-1.0); TOTAL PROTEIN 6.9 g/dL (6.4-8.2)
[2017-02-28 10:16] LABS: CKMB MASS 2.3 ng/mL (0.0-3.6); CREATINE KINASE 35 U/L (26-192)
[2017-02-28 10:40] LABS: INR 1.5 (0.8-1.1); PROTHROMBIN TIME PATIENT 16.8 SEC (11.7-14.0)
[2017-02-28] MEDS ORDERED: MORPHINE SULFATE 2 MG/ML DISP.SYRIN. IV PRN (10:45)
[2017-02-28] MEDS ORDERED: ONDANSETRON PF 4 MG/2 ML VIAL. IV PRN (10:45)
[2017-02-28] MEDS ORDERED: IV NORMAL SALINE 1000ML BAG 1,000 ML IV ONE (11:00)
[2017-02-28] MEDS ORDERED: POTASSIUM CHLORIDE 20 MEQ TABLET.ER. PO ONE (11:00)
[2017-02-28 11:35] LABS: BILIRUBIN,URINE MODERATE (NEG); GLUCOSE,URINE NEGATIVE (NEG); NITRITE,URINE NEGATIVE (NEG); PH,URINE 6.5; PROTEIN,URINE 30 mg/dL (NEG-TRACE)
[2017-02-28 11:47] LABS: BACTERIA,URINE MANY /HPF (0-FEW); WBC,URINE >40 /HPF (0-4)
[2017-02-28 11:48] LABS: SQUAMOUS EPITHELIAL CELL,UR MOD /LPF
[2017-02-28] MEDS ORDERED: MAGNESIUM SULFATE 4GM 100 ML IV ONE (13:00)
[2017-02-28] MEDS: PANTOPRAZOLE IV PUSH 40 MG VIAL. IVP SCH (14:10)
--- NOTE | 2017-02-28 14:51 | RAD ---
EXAM: Abdomen, single view. HISTORY: Nausea and vomiting. COMPARISON: PET/CT dated 02/04/2017. FINDINGS: A frontal view of the abdomen is obtained. There are distended air-filled small bowel throughout the abdomen and there is small bowel wall thickening. There is a surgical anastomosis within the right lower quadrant. There is a relative paucity of gas within the colon.. IMPRESSION: Distended air-filled small bowel throughout the abdomen and small bowel wall thickening. This suggests distal small bowel obstruction.
[2017-02-28 15:00] VITALS: BP 119/66
--- NOTE | 2017-02-28 15:25 | PDOC1 ---
History and Physical Date of Admission Date of Admission 02/28/17 Identification/Chief Complaint Chief Complaint N/V Problems: Source Source: Chart review, Patient History of Present Illness History of Present Illness Patient is a 82 year old female with a history of colon cancer presents to the ED complaining of nausea and vomiting 2 days. History of colectomy recently found to have mets to liver and abdominal cavity Sees Dr. Morris. States over the last 2 days she has not been able to eat. Yesterday she had one bite of mashed potatoes. States she is set to begin chemo soon but has not yet. Took anti- nausea medicine this morning with no improvement. Denies chest pain, abdominal pain, weakness, dizziness, fever, diarrhea or blood in stool. Past Medical History Cardiovascular: HTN, Other (benign mediastinal mass) Pulmonary: Other (benign mediastinal mass) GI: GERD, GI bleed, Gastritis Heme/Onc: Cancer (colon), Iron deficiency Anemia Rheumatologic: Other (DJD) Renal/: UTI Endocrine: Osteoporosis Past Surgical History Past Surgical History: Colectomy Family History Family History: Hypertension Social History Smoke: No ALCOHOL: none Drugs: None Current Problem List Problem List Problems Medical Problems: (1) Hypokalemia Status: Acute Current Medications Current Medications Current Medications Medications (Trade) Dose Ordered Sig/Becky Start Time Stop Time Status Last Admin Dose Admin Magnesium Sulfate/ Dextrose 100 ml @ 25 mls/hr 1X ONCE 02/28/17 13:00 02/28/17 16:59 02/28/17 14:36 25 MLS/HR Morphine Sulfate 2 mg PRN Q2HR PRN 02/28/17 10:45 03/01/17 10:44 02/28/17 11:38 2 MG Ondansetron HCl (Zofran) 4 mg PRN Q8HRS PRN 02/28/17 10:45 03/01/17 10:44 02/28/17 11:36 4 MG Pantoprazole Sodium (Protonix Vial) 40 mg DAILYAC 02/28/17 13:00 02/28/17 14:10 40 MG Potassium Chloride/Dextrose/ Sod Cl 1,000 ml @ 100 mls/hr Q10H 02/28/17 13:00 Potassium Chloride (Klor-Con) 40 meq 1X ONCE 02/28/17 11:00 02/28/17 11:01 DC Sodium Chloride 1,000 ml @ 1,000 mls/hr 1X ONCE 02/28/17 11:00 02/28/17 11:59 DC 02/28/17 13:34 1,000 MLS/HR Allergies Allergies Allergies Coded Allergies Type Severity Reaction Last Updated Verified No Known Drug Allergies 05/08/16 No ROS Review of System CONSTITUTIONAL: No fever or chills EYES: No recent changes SKIN: No rash or itching CARDIOVASCULAR: No chest pain, syncope, palpitations, or edema RESPIRATORY: No SOB or cough GASTROINTESTINAL: + nausea, vomiting and abdominal pain NEUROLOGICAL: No headaches or weakness ENDOCRINE: No cold or heat intolerance GENITOURINARY: No urgency or frequency of urination MUSCULOSKELETAL: some back pain LYMPHATICS: No enlarged lymph nodes PSYCHIATRIC: No anxiety or depression Physical Exam Physical Exam GEN.: Alert and oriented. HEENT: Head is normocephalic, atraumatic NECK: Supple. LUNGS: Clear to auscultation. HEART: RRR, S1, S2 present. Peripheral pulses intact ABDOMEN: diffusely tender and decreased BS EXTREMITIES: Without any cyanosis. NEUROLOGIC: Normal speech, normal tone PSYCHIATRIC: Normal affect, normal mood. SKIN: No ulcerations Vitals Vitals Vital Signs Date Time Temp Pulse Resp B/P (MAP) Pulse Ox O2 Delivery O2 Flow Rate FiO2 02/28/17 13:37 Room Air 02/28/17 11:38 16 100 02/28/17 11:22 117/72 (87) 02/28/17 11:22 94 02/28/17 09:22 98.9 98.9 Labs Labs Laboratory Tests Test 02/28/17 09:42 02/28/17 11:15 White Blood Count 9.6 x10^3/uL (4.0-11.0) Red Blood Count 4.05 x10^6/uL (3.50-5.40) Hemoglobin 11.9 g/dL (12.0-15.5) Hematocrit 35.7 % (36.0-47.0) Mean Corpuscular Volume 88 fL (79-100) Mean Corpuscular Hemoglobin 29 pg (25-35) Mean Corpuscular Hemoglobin Concent 33 g/dL (31-37) Red Cell Distribution Width 14.4 % (11.5-14.5) Platelet Count 393 x10^3/uL (140-400) Neutrophils (%) (Auto) 79 % (31-73) Lymphocytes (%) (Auto) 12 % (24-48) Monocytes (%) (Auto) 9 % (0-9) Eosinophils (%) (Auto) 1 % (0-3) Basophils (%) (Auto) 0 % (0-3) Neutrophils # (Auto) 7.6 x10^3uL (1.8-7.7) Lymphocytes # (Auto) 1.1 x10^3/uL (1.0-4.8) Monocytes # (Auto) 0.9 x10^3/uL (0.0-1.1) Eosinophils # (Auto) 0.1 x10^3/uL (0.0-0.7) Basophils # (Auto) 0.0 x10^3/uL (0.0-0.2) Prothrombin Time 16.8 SEC (11.7-14.0) Prothromb Time International Ratio 1.5 (0.8-1.1) Activated Partial Thromboplast Time 39 SEC (24-38) Sodium Level 128 mmol/L (136-145) Potassium Level 3.1 mmol/L (3.5-5.1) Chloride Level 87 mmol/L (98-107) Carbon Dioxide Level 33 mmol/L (21-32) Anion Gap 8 (6-14) Blood Urea Nitrogen 15 mg/dL (7-20) Creatinine 0.7 mg/dL (0.6-1.0) Estimated GFR (Cockcroft-Gault) 96.7 BUN/Creatinine Ratio 21 (6-20) Glucose Level 104 mg/dL (70-99) Calcium Level 9.1 mg/dL (8.5-10.1) Total Bilirubin 0.9 mg/dL (0.2-1.0) Aspartate Amino Transf (AST/SGOT) 30 U/L (15-37) Alanine Aminotransferase (ALT/SGPT) 16 U/L (14-59) Alkaline Phosphatase 92 U/L (46-116) Creatine Kinase 35 U/L (26-192) Creatine Kinase MB (Mass) 2.3 ng/mL (0.0-3.6) Creatine Kinase MB Relative Index % (0-4) Total Protein 6.9 g/dL (6.4-8.2) Albumin 2.8 g/dL (3.4-5.0) Albumin/Globulin Ratio 0.7 (1.0-1.7) Lipase 71 U/L (73-393) Urine Collection Type Void Urine Color Yellow Urine Clarity Cloudy Urine pH 6.5 Urine Specific [place] 1.020 Urine Protein 30 mg/dL (NEG-TRACE) Urine Glucose (UA) Negative mg/dL (NEG) Urine Ketones (Stick) 40 mg/dL (NEG) Urine Blood Trace (NEG) Urine Nitrite Negative (NEG) Urine Bilirubin Moderate (NEG) Urine Urobilinogen Dipstick 1.0 mg/dL (0.2 mg/dL) Urine Leukocyte Esterase Large (NEG) Urine RBC 3-5 /HPF (0-2) Urine WBC >40 /HPF (0-4) Urine Squamous Epithelial Cells Mod /LPF Urine Bacteria Many /HPF (0-FEW) Urine Hyaline Casts Few /HPF Urine Mucus Marked /LPF Laboratory Tests Test 02/28/17 09:42 02/28/17 11:15 White Blood Count 9.6 x10^3/uL (4.0-11.0) Red Blood Count 4.05 x10^6/uL (3.50-5.40) Hemoglobin 11.9 g/dL (12.0-15.5) Hematocrit 35.7 % (36.0-47.0) Mean Corpuscular Volume 88 fL (79-100) Mean Corpuscular Hemoglobin 29 pg (25-35) Mean Corpuscular Hemoglobin Concent 33 g/dL (31-37) Red Cell Distribution Width 14.4 % (11.5-14.5) Platelet Count 393 x10^3/uL (140-400) Neutrophils (%) (Auto) 79 % (31-73) Lymphocytes (%) (Auto) 12 % (24-48) Monocytes (%) (Auto) 9 % (0-9) Eosinophils (%) (Auto) 1 % (0-3) Basophils (%) (Auto) 0 % (0-3) Neutrophils # (Auto) 7.6 x10^3uL (1.8-7.7) Lymphocytes # (Auto) 1.1 x10^3/uL (1.0-4.8) Monocytes # (Auto) 0.9 x10^3/uL (0.0-1.1) Eosinophils # (Auto) 0.1 x10^3/uL (0.0-0.7) Basophils # (Auto) 0.0 x10^3/uL (0.0-0.2) Prothrombin Time 16.8 SEC (11.7-14.0) Prothromb Time International Ratio 1.5 (0.8-1.1) Activated Partial Thromboplast Time 39 SEC (24-38) Sodium Level 128 mmol/L (136-145) Potassium Level 3.1 mmol/L (3.5-5.1) Chloride Level 87 mmol/L (98-107) Carbon Dioxide Level 33 mmol/L (21-32) Anion Gap 8 (6-14) Blood Urea Nitrogen 15 mg/dL (7-20) Creatinine 0.7 mg/dL (0.6-1.0) Estimated GFR (Cockcroft-Gault) 96.7 BUN/Creatinine Ratio 21 (6-20) Glucose Level 104 mg/dL (70-99) Calcium Level 9.1 mg/dL (8.5-10.1) Total Bilirubin 0.9 mg/dL (0.2-1.0) Aspartate Amino Transf (AST/SGOT) 30 U/L (15-37) Alanine Aminotransferase (ALT/SGPT) 16 U/L (14-59) Alkaline Phosphatase 92 U/L (46-116) Creatine Kinase 35 U/L (26-192) Creatine Kinase MB (Mass) 2.3 ng/mL (0.0-3.6) Creatine Kinase MB Relative Index % (0-4) Total Protein 6.9 g/dL (6.4-8.2) Albumin 2.8 g/dL (3.4-5.0) Albumin/Globulin Ratio 0.7 (1.0-1.7) Lipase 71 U/L (73-393) Urine Collection Type Void Urine Color Yellow Urine Clarity Cloudy Urine pH 6.5 Urine Specific [place] 1.020 Urine Protein 30 mg/dL (NEG-TRACE) Urine Glucose (UA) Negative mg/dL (NEG) Urine Ketones (Stick) 40 mg/dL (NEG) Urine Blood Trace (NEG) Urine Nitrite Negative (NEG) Urine Bilirubin Moderate (NEG) Urine Urobilinogen Dipstick 1.0 mg/dL (0.2 mg/dL) Urine Leukocyte Esterase Large (NEG) Urine RBC 3-5 /HPF (0-2) Urine WBC >40 /HPF (0-4) Urine Squamous Epithelial Cells Mod /LPF Urine Bacteria Many /HPF (0-FEW) Urine Hyaline Casts Few /HPF Urine Mucus Marked /LPF VTE Prophylaxis Ordered VTE Prophylaxis Devices: Yes VTE Pharmacological Prophylaxi: Yes Assessment/Plan Assessment/Plan 1- N/V small bowel obstruction 2-Metastatic colon CA 3-HTN 4-Hx anemia iron deficiency 5- hypokalemia, hyponatremia check CT , consult surgery , hydrate and replace K+, symptoms control JUAN TINEO MD Feb 28, 2017 15:25
--- NOTE | 2017-02-28 16:32 | RAD ---
EXAM: Abdomen and pelvis CT without intravenous contrast. HISTORY: Small bowel obstruction. TECHNIQUE: Computed tomographic images of the abdomen and pelvis were obtained without contrast. Multiplanar reformatting was performed. COMPARISON: PET/CT dated 02/04/2017. FINDINGS: Evaluation of the lower thorax demonstrates posterior dependent atelectasis. There are a few calcified granulomas. There is no infiltrate or effusion. The heart is normal in size. There is coronary artery atherosclerosis. There is a moderate hiatal hernia. There are multiple hypodense lesions throughout the liver, consistent with hepatic metastatic disease. The largest of these measures approximately 3.4 cm within the right hepatic lobe. There is a 3.6 cm cyst within the right hepatic lobe. The gallbladder, pancreas, spleen and adrenal glands are unremarkable. The kidneys are unremarkable. There are distended air and fluid-filled loops of small bowel throughout the abdomen. This extends to a transition point to decompressed small bowel within the right lower quadrant. There is an anterior colic anastomosis with surrounding soft tissue nodules likely due to lymph nodes or soft tissue metastatic implants. There are additional suspected lymph nodes or metastatic implants surrounding the splenic flexure. There is colonic diverticulosis. There is a small amount of abdominal ascites. There are calcifications within the uterus likely due to fibroids. There is pelvic floor relaxation. There is internal fixation of the right humerus. There are healed right pubic rami fractures. There is degenerative change involving the lumbar spine. There is bone demineralization. IMPRESSION: 1. Distended loops of small bowel throughout the abdomen extending to a transition point to decompressed distal small bowel within the right lower quadrant, consistent with small bowel obstruction. 2. Multiple soft tissue nodules and slight stranding surrounding enterocolic anastomosis within the right lower quadrant. This likely due to metastatic lymph nodes or metastatic soft tissue implants. There are additional suspected lymph nodes or metastatic implant surrounding the splenic flexure. This is similar to slightly progressed compared to the prior study. 3. Colonic diverticulosis. 4. Hepatic metastatic disease. This appears slightly progressed compared to the prior study. 5. Multiple uterine fibroids. 6. Small amount of abdominal ascites. 6. Moderate hiatal hernia. 7. Hepatic cyst. PQRS Compliance Statement: One or more of the following individualized dose reduction techniques were utilized for this examination: 1. Automated exposure control 2. Adjustment of the mA and/or kV according to patient size 3. Use of iterative reconstruction technique
[2017-02-28] MEDS ORDERED: SOTA80TA8 PO (16:46)
[2017-02-28] MEDS ORDERED: APIX5TAB PO (16:46)
[2017-02-28] MEDS ORDERED: DRON2.5C2 PO (16:46)
[2017-02-28] MEDS ORDERED: HYDR25TA9 PO (16:46)
[2017-02-28] MEDS ORDERED: SUCR1TAB PO (16:46)
[2017-02-28 19:00] VITALS: BP 104/51
[2017-02-28 23:00] VITALS: BP 107/55
[2017-03-01 03:00] VITALS: BP 121/58
[2017-03-01 04:48] LABS: BASO % 0 % (0-3); EOS % 1 % (0-3); HEMATOCRIT 33.7 % (36.0-47.0); HEMOGLOBIN 11.3 g/dL (12.0-15.5); LYMPH # 1.5 x10^3/uL (1.0-4.8); LYMPH % 20 % (24-48); MEAN CORPUSCULAR HEMOGLOBIN 30 pg (25-35); MEAN CORPUSCULAR HGB CONC 33 g/dL (31-37); MEAN CORPUSCULAR VOLUME 89 fL (79-100); MONO % 12 % (0-9); NEUT % 67 % (31-73); PLATELET COUNT 333 x10^3/uL (140-400); RED BLOOD COUNT 3.78 x10^6/uL (3.50-5.40); RED CELL DISTRIBUTION WIDTH 14.8 % (11.5-14.5); WHITE BLOOD COUNT 7.3 x10^3/uL (4.0-11.0)
[2017-03-01 04:54] LABS: ALBUMIN 2.5 g/dL (3.4-5.0); ALBUMIN/GLOBULIN RATIO 0.7 (1.0-1.7); CALCIUM 8.6 mg/dL (8.5-10.1); CREATININE 0.6 mg/dL (0.6-1.0); GFR 115.5; POTASSIUM 3.2 mmol/L (3.5-5.1); TOTAL BILIRUBIN 0.7 mg/dL (0.2-1.0); TOTAL PROTEIN 6.1 g/dL (6.4-8.2)
[2017-03-01 07:00] VITALS: BP 120/70
[2017-03-01] MEDS: PANTOPRAZOLE IV PUSH 40 MG VIAL. IVP SCH (09:04)
[2017-03-01] MEDS: POTASSIUM CL 20MEQ D5-0.45NACL 1,000 ML IV SCH ×2 (09:05→19:00)
[2017-03-01] MEDS ORDERED: POTASSIUM CHLORIDE 40 MEQ in IV DEXTROSE 5% 1,000 ML IV ONE (10:00)
[2017-03-01] MEDS: POTASSIUM CHLORIDE 10 MEQ in IV NORMAL SALINE 100ML 100 ML IV SCH ×4 (10:22→13:50)
[2017-03-01 11:00] VITALS: BP 149/77
--- NOTE | 2017-03-01 12:00 | PDOC ---
SUBJECTIVE Subjective pain much better, vomitting better but not passing gas, last BM yesterday AM OBJECTIVE Vital Signs Vital Signs Date Time Temp Pulse Resp B/P (MAP) Pulse Ox O2 Delivery O2 Flow Rate FiO2 03/01/17 07:00 97.8 75 18 120/70 (87) 97 Room Air 97.8 03/01/17 03:00 97.5 57 18 121/58 (79) 95 Room Air 97.5 02/28/17 23:00 96.6 80 13 107/55 (72) 96 Room Air 96.6 02/28/17 20:00 Room Air 02/28/17 19:00 98.1 80 15 104/51 (68) 95 Room Air 98.1 02/28/17 15:00 97.5 86 16 119/66 (83) 97 Room Air 97.5 02/28/17 13:37 Room Air I & O Intake and Output 03/01/17 07:00 Intake Total 1650 ml Output Total 210 ml Balance 1440 ml Intake Oral 450 ml IV Total 1200 ml Output Urine Total 210 ml PHYSICAL EXAM Physical Exam lungs fairly clear upper lobes, decrease BS lower lobes heart RRR abd distended and hard decrease BS ext no edema ASSESSMENT/PLAN Assessment/Plan 1- N/V small bowel obstruction on bowel rest 2-Metastatic colon CA 3-HTN 4-Hx anemia iron deficiency 5- hypokalemia, hyponatremia replacing 6-malnourished and significant wt loss will start TPN , surgery consulted Problems: COMMENT Lab Laboratory Tests Test 02/28/17 16:25 02/28/17 22:40 03/01/17 03:00 Troponin I Quantitative < 0.017 ng/mL (0.000-0.055) < 0.017 ng/mL (0.000-0.055) White Blood Count 7.3 x10^3/uL (4.0-11.0) Red Blood Count 3.78 x10^6/uL (3.50-5.40) Hemoglobin 11.3 g/dL (12.0-15.5) Hematocrit 33.7 % (36.0-47.0) Mean Corpuscular Volume 89 fL (79-100) Mean Corpuscular Hemoglobin 30 pg (25-35) Mean Corpuscular Hemoglobin Concent 33 g/dL (31-37) Red Cell Distribution Width 14.8 % (11.5-14.5) Platelet Count 333 x10^3/uL (140-400) Neutrophils (%) (Auto) 67 % (31-73) Lymphocytes (%) (Auto) 20 % (24-48) Monocytes (%) (Auto) 12 % (0-9) Eosinophils (%) (Auto) 1 % (0-3) Basophils (%) (Auto) 0 % (0-3) Neutrophils # (Auto) 4.8 x10^3uL (1.8-7.7) Lymphocytes # (Auto) 1.5 x10^3/uL (1.0-4.8) Monocytes # (Auto) 0.9 x10^3/uL (0.0-1.1) Eosinophils # (Auto) 0.1 x10^3/uL (0.0-0.7) Basophils # (Auto) 0.0 x10^3/uL (0.0-0.2) Sodium Level 132 mmol/L (136-145) Potassium Level 3.2 mmol/L (3.5-5.1) Chloride Level 92 mmol/L (98-107) Carbon Dioxide Level 31 mmol/L (21-32) Anion Gap 9 (6-14) Blood Urea Nitrogen 13 mg/dL (7-20) Creatinine 0.6 mg/dL (0.6-1.0) Estimated GFR (Cockcroft-Gault) 115.5 BUN/Creatinine Ratio 22 (6-20) Glucose Level 63 mg/dL (70-99) Calcium Level 8.6 mg/dL (8.5-10.1) Total Bilirubin 0.7 mg/dL (0.2-1.0) Aspartate Amino Transf (AST/SGOT) 29 U/L (15-37) Alanine Aminotransferase (ALT/SGPT) 13 U/L (14-59) Alkaline Phosphatase 80 U/L (46-116) Total Protein 6.1 g/dL (6.4-8.2) Albumin 2.5 g/dL (3.4-5.0) Albumin/Globulin Ratio 0.7 (1.0-1.7) JUAN TINEO MD Mar 01, 2017 12:00
[2017-03-01] MEDS: TPN PER PHARMACY MC PRN (14:13)
[2017-03-01 15:00] VITALS: BP 128/64
--- NOTE | 2017-03-01 16:20 | PDOC2 ---
CONSULT Date of Consult Date of Consult DATE: 03/01/17 TIME: 16:19 Past Medical History Cardiovascular: HTN, Other (benign mediastinal mass) Pulmonary: Other (benign mediastinal mass) GI: GERD, GI bleed, Gastritis Heme/Onc: Cancer (colon), Iron deficiency Anemia Rheumatologic: Other (DJD) Renal/: UTI Endocrine: Osteoporosis Past Surgical History Past Surgical History: Colectomy Family History Family History: Hypertension Social History No ALCOHOL: none Drugs: None Current Problem List Problem List Problems Medical Problems: (1) Hypokalemia Status: Acute (2) Hyponatremia Status: Acute Current Medications Current Medications Current Medications Ondansetron HCl (Zofran) 4 mg 1X ONCE IV Last administered on 02/28/17 09:50 ; Start 02/28/17 at 09:30; Stop 02/28/17 at 09:31; Status DC Sodium Chloride 1,000 ml @ 1,000 mls/hr 1X ONCE IV Last administered on 02/28 13:34; Start 02/28/17 at 11:00; Stop 02/28/17 at 11:59; Status DC Ondansetron HCl (Zofran) 4 mg PRN Q8HRS PRN IV NAUSEA/VOMITING Last administered on 02/28/17 11:36; Start 02/28/17 at 10:45; Stop 03/01/17 at 10 :44; Status DC Morphine Sulfate 2 mg PRN Q2HR PRN IV PAIN Last administered on 02/28/17 11: 38; Start 02/28/17 at 10:45; Stop 03/01/17 at 10:44; Status DC Potassium Chloride (Klor-Con) 40 meq 1X ONCE PO Last administered on 16:17; Start 02/28/17 at 11:00; Stop 02/28/17 at 11:01; Status DC Potassium Chloride/Dextrose/ Sod Cl 1,000 ml @ 100 mls/hr Q10H IV Last administered on 03/01/17 09:05; Start 02/28/17 at 13:00 Magnesium Sulfate/ Dextrose 100 ml @ 25 mls/hr 1X ONCE IV Last administered on 02/28/17 14:36; Start 02/28/17 at 13:00; Stop 02/28/17 at 16:59; Status DC Pantoprazole Sodium (Protonix Vial) 40 mg DAILYAC IVP Last administered on 09:04; Start 02/28/17 at 13:00 Potassium Chloride 40 meq/ Dextrose 1,020 ml @ 75 mls/hr 1X ONCE IV ; Start 03/01/17 at 10:00; Stop 03/01/17 at 23:35; Status UNV Potassium Chloride 10 meq/ Sodium Chloride 105 ml @ 210 mls/hr Q1HR IV Last administered on 03/01/17 13:50; Start 03/01/17 at 11:00; Stop 03/01/17 at 14 :29; Status DC Info 1 each PRN DAILY PRN MC SEE COMMENTS Last administered on 03/01/17 14:13 ; Start 03/01/17 at 12:00 Sodium Chloride 90 meq/Potassium Chloride 50 meq/ Potassium Phosphate 13.6 mmol/ Magnesium Sulfate 10 meq/ Calcium Gluconate 10 meq/ Multivitamins 10 ml/Chromium / Copper/Manganese/ Seleni/Zn 1 ml/ Total Parenteral Nutrition/Amino Acids/ Dextrose/ Fat Emulsion Intravenous 1,512 ml @ 63 mls/hr TPN CONT IV ; Start 03/01/17 at 22:00; Stop 03/02/17 at 21:59 Active Scripts Active Reported Eliquis (Apixaban) 5 Mg Tablet 5 Mg PO BID Sucralfate 1 Gm Tablet 1 Gm PO BID Sotalol Af (Sotalol Hcl) 80 Mg Tablet 80 Mg PO BID Dronabinol 2.5 Mg Capsule 2.5 Mg PO BID Hydrochlorothiazide Tablet (Hydrochlorothiazide) 25 Mg Tablet 25 Mg PO DAILY Omeprazole 40 Mg Capsule.dr 1 Cap PO DAILY Gave this morning Take in am Allergies Allergies: Coded Allergies: No Known Drug Allergies (Unverified , 05/08/16) Vitals VITALS Vital Signs Date Time Temp Pulse Resp B/P (MAP) Pulse Ox O2 Delivery O2 Flow Rate FiO2 03/01/17 11:00 98.6 77 18 149/77 (101) 96 Room Air 98.6 Labs Labs Laboratory Tests Test 02/28/17 09:42 02/28/17 11:15 02/28/17 16:25 02/28/17 22:40 White Blood Count 9.6 x10^3/uL (4.0-11.0) Red Blood Count 4.05 x10^6/uL (3.50-5.40) Hemoglobin 11.9 g/dL (12.0-15.5) Hematocrit 35.7 % (36.0-47.0) Mean Corpuscular Volume 88 fL (79-100) Mean Corpuscular Hemoglobin 29 pg (25-35) Mean Corpuscular Hemoglobin Concent 33 g/dL (31-37) Red Cell Distribution Width 14.4 % (11.5-14.5) Platelet Count 393 x10^3/uL (140-400) Neutrophils (%) (Auto) 79 % (31-73) Lymphocytes (%) (Auto) 12 % (24-48) Monocytes (%) (Auto) 9 % (0-9) Eosinophils (%) (Auto) 1 % (0-3) Basophils (%) (Auto) 0 % (0-3) Neutrophils # (Auto) 7.6 x10^3uL (1.8-7.7) Lymphocytes # (Auto) 1.1 x10^3/uL (1.0-4.8) Monocytes # (Auto) 0.9 x10^3/uL (0.0-1.1) Eosinophils # (Auto) 0.1 x10^3/uL (0.0-0.7) Basophils # (Auto) 0.0 x10^3/uL (0.0-0.2) Prothrombin Time 16.8 SEC (11.7-14.0) Prothromb Time International Ratio 1.5 (0.8-1.1) Activated Partial Thromboplast Time 39 SEC (24-38) Sodium Level 128 mmol/L (136-145) Potassium Level 3.1 mmol/L (3.5-5.1) Chloride Level 87 mmol/L (98-107) Carbon Dioxide Level 33 mmol/L (21-32) Anion Gap 8 (6-14) Blood Urea Nitrogen 15 mg/dL (7-20) Creatinine 0.7 mg/dL (0.6-1.0) Estimated GFR (Cockcroft-Gault) 96.7 BUN/Creatinine Ratio 21 (6-20) Glucose Level 104 mg/dL (70-99) Calcium Level 9.1 mg/dL (8.5-10.1) Total Bilirubin 0.9 mg/dL (0.2-1.0) Aspartate Amino Transf (AST/SGOT) 30 U/L (15-37) Alanine Aminotransferase (ALT/SGPT) 16 U/L (14-59) Alkaline Phosphatase 92 U/L (46-116) Creatine Kinase 35 U/L (26-192) Creatine Kinase MB (Mass) 2.3 ng/mL (0.0-3.6) Creatine Kinase MB Relative Index % (0-4) Total Protein 6.9 g/dL (6.4-8.2) Albumin 2.8 g/dL (3.4-5.0) Albumin/Globulin Ratio 0.7 (1.0-1.7) Lipase 71 U/L (73-393) Urine Collection Type Void Urine Color Yellow Urine Clarity Cloudy Urine pH 6.5 Urine Specific Boaz 1.020 Urine Protein 30 mg/dL (NEG-TRACE) Urine Glucose (UA) Negative mg/dL (NEG) Urine Ketones (Stick) 40 mg/dL (NEG) Urine Blood Trace (NEG) Urine Nitrite Negative (NEG) Urine Bilirubin Moderate (NEG) Urine Urobilinogen Dipstick 1.0 mg/dL (0.2 mg/dL) Urine Leukocyte Esterase Large (NEG) Urine RBC 3-5 /HPF (0-2) Urine WBC >40 /HPF (0-4) Urine Squamous Epithelial Cells Mod /LPF Urine Bacteria Many /HPF (0-FEW) Urine Hyaline Casts Few /HPF Urine Mucus Marked /LPF Troponin I Quantitative < 0.017 ng/mL (0.000-0.055) < 0.017 ng/mL (0.000-0.055) Test 03/01/17 03:00 White Blood Count 7.3 x10^3/uL (4.0-11.0) Red Blood Count 3.78 x10^6/uL (3.50-5.40) Hemoglobin 11.3 g/dL (12.0-15.5) Hematocrit 33.7 % (36.0-47.0) Mean Corpuscular Volume 89 fL (79-100) Mean Corpuscular Hemoglobin 30 pg (25-35) Mean Corpuscular Hemoglobin Concent 33 g/dL (31-37) Red Cell Distribution Width 14.8 % (11.5-14.5) Platelet Count 333 x10^3/uL (140-400) Neutrophils (%) (Auto) 67 % (31-73) Lymphocytes (%) (Auto) 20 % (24-48) Monocytes (%) (Auto) 12 % (0-9) Eosinophils (%) (Auto) 1 % (0-3) Basophils (%) (Auto) 0 % (0-3) Neutrophils # (Auto) 4.8 x10^3uL (1.8-7.7) Lymphocytes # (Auto) 1.5 x10^3/uL (1.0-4.8) Monocytes # (Auto) 0.9 x10^3/uL (0.0-1.1) Eosinophils # (Auto) 0.1 x10^3/uL (0.0-0.7) Basophils # (Auto) 0.0 x10^3/uL (0.0-0.2) Sodium Level 132 mmol/L (136-145) Potassium Level 3.2 mmol/L (3.5-5.1) Chloride Level 92 mmol/L (98-107) Carbon Dioxide Level 31 mmol/L (21-32) Anion Gap 9 (6-14) Blood Urea Nitrogen 13 mg/dL (7-20) Creatinine 0.6 mg/dL (0.6-1.0) Estimated GFR (Cockcroft-Gault) 115.5 BUN/Creatinine Ratio 22 (6-20) Glucose Level 63 mg/dL (70-99) Calcium Level 8.6 mg/dL (8.5-10.1) Total Bilirubin 0.7 mg/dL (0.2-1.0) Aspartate Amino Transf (AST/SGOT) 29 U/L (15-37) Alanine Aminotransferase (ALT/SGPT) 13 U/L (14-59) Alkaline Phosphatase 80 U/L (46-116) Total Protein 6.1 g/dL (6.4-8.2) Albumin 2.5 g/dL (3.4-5.0) Albumin/Globulin Ratio 0.7 (1.0-1.7) Laboratory Tests Test 02/28/17 16:25 02/28/17 22:40 03/01/17 03:00 Troponin I Quantitative < 0.017 ng/mL (0.000-0.055) < 0.017 ng/mL (0.000-0.055) White Blood Count 7.3 x10^3/uL (4.0-11.0) Red Blood Count 3.78 x10^6/uL (3.50-5.40) Hemoglobin 11.3 g/dL (12.0-15.5) Hematocrit 33.7 % (36.0-47.0) Mean Corpuscular Volume 89 fL (79-100) Mean Corpuscular Hemoglobin 30 pg (25-35) Mean Corpuscular Hemoglobin Concent 33 g/dL (31-37) Red Cell Distribution Width 14.8 % (11.5-14.5) Platelet Count 333 x10^3/uL (140-400) Neutrophils (%) (Auto) 67 % (31-73) Lymphocytes (%) (Auto) 20 % (24-48) Monocytes (%) (Auto) 12 % (0-9) Eosinophils (%) (Auto) 1 % (0-3) Basophils (%) (Auto) 0 % (0-3) Neutrophils # (Auto) 4.8 x10^3uL (1.8-7.7) Lymphocytes # (Auto) 1.5 x10^3/uL (1.0-4.8) Monocytes # (Auto) 0.9 x10^3/uL (0.0-1.1) Eosinophils # (Auto) 0.1 x10^3/uL (0.0-0.7) Basophils # (Auto) 0.0 x10^3/uL (0.0-0.2) Sodium Level 132 mmol/L (136-145) Potassium Level 3.2 mmol/L (3.5-5.1) Chloride Level 92 mmol/L (98-107) Carbon Dioxide Level 31 mmol/L (21-32) Anion Gap 9 (6-14) Blood Urea Nitrogen 13 mg/dL (7-20) Creatinine 0.6 mg/dL (0.6-1.0) Estimated GFR (Cockcroft-Gault) 115.5 BUN/Creatinine Ratio 22 (6-20) Glucose Level 63 mg/dL (70-99) Calcium Level 8.6 mg/dL (8.5-10.1) Total Bilirubin 0.7 mg/dL (0.2-1.0) Aspartate Amino Transf (AST/SGOT) 29 U/L (15-37) Alanine Aminotransferase (ALT/SGPT) 13 U/L (14-59) Alkaline Phosphatase 80 U/L (46-116) Total Protein 6.1 g/dL (6.4-8.2) Albumin 2.5 g/dL (3.4-5.0) Albumin/Globulin Ratio 0.7 (1.0-1.7) Assessment/Plan Assessment/Plan FNTBD pt seen, interviewed, and examined family at bedside s/p right colon September this year recommended NG, she declined will follow Thanks for consult AVERY RODRIGUEZ MD Mar 01, 2017 16:20
--- NOTE | 2017-03-01 16:31 | RAD ---
KUB, 03/01/2017: History: Abdominal pain There is moderate gaseous distention of multiple small bowel loops similar to that seen on the CT study of 02/28/2017. There has been no improvement since yesterday's KUB. Very little colonic gas is present. The bony structures are demineralized. An internal fixation device is present at the right hip. IMPRESSION: Ongoing small bowel obstruction.
--- NOTE | 2017-03-01 17:29 | CONS ---
DATE OF CONSULTATION: 03/01/2017 REQUESTING PHYSICIAN: Juan Batres MD REASON FOR CONSULTATION: Colon cancer, stage 4, now admitted with small bowel obstruction. HISTORY OF PRESENTING ILLNESS: The patient is an 82-year-old -[place] female who presented in 09/2016 to [facility] with complaints of nausea, vomiting, weight loss and abdominal pain. Workup revealed small bowel obstruction. Colonoscopy revealed fungating mass in the cecum and the biopsy confirmed adenocarcinoma. She underwent right hemicolectomy on 10/19/2016 which revealed poorly differentiated adenocarcinoma with 3/14 lymph node showing metastatic disease, KRAS positive and it was staged as a T4a N1b colon cancer. PET scan on 02/04/2017 revealed multiple hepatic masses consistent with metastatic disease and soft tissue mass in the right lateral abdomen concerning for metastatic disease. I saw her for consultation, and I recommended palliative chemotherapy with Xeloda. However, she was not ready to start treatment because of her symptoms of nausea, vomiting. She was admitted to [facility] on 02/28/2017. She underwent further workup with a CT scan of the abdomen and pelvis on 02/28/2017 which revealed distended loops of small bowel suggestive of small bowel obstruction. Multiple soft tissue nodules within the right lower quadrant, likely on the basis of metastatic disease versus soft tissue implants. Hepatic metastasis was also noted. PAST MEDICAL HISTORY: Hypertension, GERD, GI bleed, gastritis, iron deficiency anemia, degenerative joint disease, urinary tract infection and osteoporosis. PAST SURGICAL HISTORY: Hip fracture surgery, colonoscopy, hysterectomy. FAMILY HISTORY: Sister had breast cancer. SOCIAL HISTORY: She is , never smoker. No alcohol abuse. REVIEW OF SYSTEMS: A 12-point review of system was performed. Pertinent positives are mentioned in the history of present illness. Rest of the system review is negative. PHYSICAL EXAMINATION: GENERAL APPEARANCE: The patient is an 82-year-old female who is in no acute cardiorespiratory distress. VITAL SIGNS: Blood pressure 149/77, temperature 98.6. HEENT: Head atraumatic, normocephalic. Eyes: No icterus. NECK: Supple. CHEST: Bilaterally symmetrical. HEART: S1, S2 normal. ABDOMEN: Soft. She has mild diffuse tenderness. CENTRAL NERVOUS SYSTEM: No focal deficits. LYMPHATICS: No lymphadenopathy. SKIN: No rashes. PSYCHOLOGIC: Mood and affect are appropriate. MUSCULOSKELETAL: No joint effusions. LABORATORY DATA: WBC 7.3, hemoglobin 11.3, platelet count 333. Creatinine 0.6, total bilirubin 0.7, AST 29, ALT 13, alkaline phosphatase 80, total protein 6.1, albumin 2.5. IMPRESSION AND PLAN: 1. 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 I have recommended palliative chemotherapy with Xeloda once her symptoms of small bowel obstruction improve. The treatment will be done as an outpatient under a clinical trial protocol. I reviewed the risks and benefits of chemotherapy and she understands and agrees to proceed with it once she starts feeling better. 2. Small bowel obstruction. I appreciate management by Dr. Juan Batres. Her electrolytes are being corrected. She is already feeling better. 3. Anemia secondary to malignancy. Continue to monitor. GEENA VELEZ MD DR: LYNETTE/yuri JOB#: [id number] / [id number] JUAN Cagle MD MTDBrina
[2017-03-01 19:15] VITALS: BP 129/68
[2017-03-01] MEDS ORDERED: TOTAL PARENTERAL NUTRITION 1,424.9987 ML, AMINO ACIDS 10 % 60 GM, DEXTROSE 70 % IN WATE... IV SCH ×10 (22:00)
[2017-03-01 23:28] VITALS: BP 138/76
[2017-03-02 02:49] VITALS: BP 135/77
[2017-03-02] MEDS: POTASSIUM CL 20MEQ D5-0.45NACL 1,000 ML IV SCH ×2 (05:00→15:00)
[2017-03-02] MEDS: PANTOPRAZOLE IV PUSH 40 MG VIAL. IVP SCH (06:07)
[2017-03-02 06:57] LABS: HEMATOCRIT 35.3 % (36.0-47.0); HEMOGLOBIN 11.8 g/dL (12.0-15.5); RED BLOOD COUNT 3.97 x10^6/uL (3.50-5.40); RED CELL DISTRIBUTION WIDTH 14.6 % (11.5-14.5); WHITE BLOOD COUNT 8.9 x10^3/uL (4.0-11.0)
[2017-03-02 07:00] VITALS: BP 128/74
[2017-03-02 07:20] LABS: MAGNESIUM 1.8 mg/dL (1.8-2.4)
[2017-03-02 07:22] LABS: ALBUMIN 2.3 g/dL (3.4-5.0); ALBUMIN/GLOBULIN RATIO 0.6 (1.0-1.7); CALCIUM 8.3 mg/dL (8.5-10.1); CREATININE 0.5 mg/dL (0.6-1.0); GFR 142.6; POTASSIUM 3.6 mmol/L (3.5-5.1); TOTAL BILIRUBIN 0.6 mg/dL (0.2-1.0); TOTAL PROTEIN 6.3 g/dL (6.4-8.2)
--- NOTE | 2017-03-02 09:51 | PDOC ---
SUBJECTIVE Subjective She is somewhat nauseated today, has been burping, her abdomen is still distended, I discussed with her the need for NG tube and she agrees to proceed with that OBJECTIVE Vital Signs Vital Signs Date Time Temp Pulse Resp B/P (MAP) Pulse Ox O2 Delivery O2 Flow Rate FiO2 03/02/17 07:00 97.8 101 16 128/74 (92) 95 Room Air 97.8 03/02/17 02:49 97.5 92 16 135/77 (96) 96 Room Air 97.5 03/01/17 23:28 98.0 89 16 138/76 (96) 95 Room Air 98.0 03/01/17 20:00 Room Air 03/01/17 19:15 98.6 80 16 129/68 (88) 96 Room Air 98.6 03/01/17 15:00 98.2 74 18 128/64 (85) 94 Room Air 98.2 03/01/17 11:00 98.6 77 18 149/77 (101) 96 Room Air 98.6 I & O Intake and Output 03/02/17 07:00 Intake Total 120 ml Output Total 300 ml Balance -180 ml Intake Oral 120 ml Output Urine Total 300 ml # Voids 1 PHYSICAL EXAM Physical Exam Lungs with decreased breath sounds in the bases Heart regular rate and rhythm Abdomen distended with no bowel sounds Extremities no edema ASSESSMENT/PLAN Assessment/Plan 1- small bowel obstruction discussed the need for NG tube she agrees and will proceed with that today 2-Metastatic colon CA 3-HTN 4-Hx anemia iron deficiency 5- hypokalemia, hyponatremia replacing 6-malnourished and significant wt loss on TPN Problems: COMMENT Lab Laboratory Tests Test 03/01/17 19:47 03/02/17 02:39 03/02/17 06:30 Glucose (Fingerstick) 110 mg/dL (70-99) 177 mg/dL (70-99) 188 mg/dL (70-99) White Blood Count 8.9 x10^3/uL (4.0-11.0) Red Blood Count 3.97 x10^6/uL (3.50-5.40) Hemoglobin 11.8 g/dL (12.0-15.5) Hematocrit 35.3 % (36.0-47.0) Mean Corpuscular Volume 89 fL (79-100) Mean Corpuscular Hemoglobin 30 pg (25-35) Mean Corpuscular Hemoglobin Concent 33 g/dL (31-37) Red Cell Distribution Width 14.6 % (11.5-14.5) Platelet Count 317 x10^3/uL (140-400) Sodium Level 132 mmol/L (136-145) Potassium Level 3.6 mmol/L (3.5-5.1) Chloride Level 96 mmol/L (98-107) Carbon Dioxide Level 32 mmol/L (21-32) Anion Gap 4 (6-14) Blood Urea Nitrogen 13 mg/dL (7-20) Creatinine 0.5 mg/dL (0.6-1.0) Estimated GFR (Cockcroft-Gault) 142.6 BUN/Creatinine Ratio 26 (6-20) Glucose Level 174 mg/dL (70-99) Calcium Level 8.3 mg/dL (8.5-10.1) Phosphorus Level 2.0 mg/dL (2.6-4.7) Magnesium Level 1.8 mg/dL (1.8-2.4) Total Bilirubin 0.6 mg/dL (0.2-1.0) Aspartate Amino Transf (AST/SGOT) 29 U/L (15-37) Alanine Aminotransferase (ALT/SGPT) 14 U/L (14-59) Alkaline Phosphatase 87 U/L (46-116) Total Protein 6.3 g/dL (6.4-8.2) Albumin 2.3 g/dL (3.4-5.0) Albumin/Globulin Ratio 0.6 (1.0-1.7) JUAN TINEO MD Mar 02, 2017 09:51
[2017-03-02] MEDS ORDERED: SUCRALFATE 1 GM TABLET. PO SCH (10:00)
--- NOTE | 2017-03-02 10:01 | RAD ---
CB, 03/02/2017: History: Follow-up small bowel obstruction Comparison is made yesterday study. There is moderate unchanged dilatation of multiple small bowel loops in the central abdomen. Very little colonic gas is seen. The findings are compatible with an ongoing small bowel obstruction. Surgical sutures are present in the right midabdomen. IMPRESSION: Unchanged gaseous distention of small bowel loops compatible with small bowel obstruction.
[2017-03-02 10:56] VITALS: BP 111/66
[2017-03-02] MEDS: TPN PER PHARMACY MC PRN ×2 (11:08→11:16)
[2017-03-02] MEDS ORDERED: BENZOCAINE ONE 20% MUCOSAL SPRAY. MM (13:30)
[2017-03-02] MEDS ORDERED: LIDOCAINE 2% JELLY 6ML IN APPLICATOR. MM ONE (13:30)
--- NOTE | 2017-03-02 13:36 | PDOC ---
SURGICAL PROGRESS NOTE Subjective attempting NG placement + bloating + nausea Vital Signs Vital Signs Date Time Temp Pulse Resp B/P (MAP) Pulse Ox O2 Delivery O2 Flow Rate FiO2 03/02/17 10:56 98.1 95 16 111/66 (81) 96 Room Air 98.1 I&O Intake and Output 03/02/17 07:00 Intake Total 120 ml Output Total 300 ml Balance -180 ml Intake Oral 120 ml Output Urine Total 300 ml # Voids 1 General: Alert, Oriented X3, Cooperative, No acute distress Abdomen: Soft, Other (distended, mild tenderness ) Labs Laboratory Tests Test 02/28/17 16:25 02/28/17 22:40 03/01/17 03:00 03/01/17 19:47 Troponin I Quantitative < 0.017 ng/mL (0.000-0.055) < 0.017 ng/mL (0.000-0.055) White Blood Count 7.3 x10^3/uL (4.0-11.0) Red Blood Count 3.78 x10^6/uL (3.50-5.40) Hemoglobin 11.3 g/dL (12.0-15.5) Hematocrit 33.7 % (36.0-47.0) Mean Corpuscular Volume 89 fL (79-100) Mean Corpuscular Hemoglobin 30 pg (25-35) Mean Corpuscular Hemoglobin Concent 33 g/dL (31-37) Red Cell Distribution Width 14.8 % (11.5-14.5) Platelet Count 333 x10^3/uL (140-400) Neutrophils (%) (Auto) 67 % (31-73) Lymphocytes (%) (Auto) 20 % (24-48) Monocytes (%) (Auto) 12 % (0-9) Eosinophils (%) (Auto) 1 % (0-3) Basophils (%) (Auto) 0 % (0-3) Neutrophils # (Auto) 4.8 x10^3uL (1.8-7.7) Lymphocytes # (Auto) 1.5 x10^3/uL (1.0-4.8) Monocytes # (Auto) 0.9 x10^3/uL (0.0-1.1) Eosinophils # (Auto) 0.1 x10^3/uL (0.0-0.7) Basophils # (Auto) 0.0 x10^3/uL (0.0-0.2) Sodium Level 132 mmol/L (136-145) Potassium Level 3.2 mmol/L (3.5-5.1) Chloride Level 92 mmol/L (98-107) Carbon Dioxide Level 31 mmol/L (21-32) Anion Gap 9 (6-14) Blood Urea Nitrogen 13 mg/dL (7-20) Creatinine 0.6 mg/dL (0.6-1.0) Estimated GFR (Cockcroft-Gault) 115.5 BUN/Creatinine Ratio 22 (6-20) Glucose Level 63 mg/dL (70-99) Calcium Level 8.6 mg/dL (8.5-10.1) Total Bilirubin 0.7 mg/dL (0.2-1.0) Aspartate Amino Transf (AST/SGOT) 29 U/L (15-37) Alanine Aminotransferase (ALT/SGPT) 13 U/L (14-59) Alkaline Phosphatase 80 U/L (46-116) Total Protein 6.1 g/dL (6.4-8.2) Albumin 2.5 g/dL (3.4-5.0) Albumin/Globulin Ratio 0.7 (1.0-1.7) Glucose (Fingerstick) 110 mg/dL (70-99) Test 03/02/17 02:39 03/02/17 06:30 03/02/17 11:31 Glucose (Fingerstick) 177 mg/dL (70-99) 188 mg/dL (70-99) 134 mg/dL (70-99) White Blood Count 8.9 x10^3/uL (4.0-11.0) Red Blood Count 3.97 x10^6/uL (3.50-5.40) Hemoglobin 11.8 g/dL (12.0-15.5) Hematocrit 35.3 % (36.0-47.0) Mean Corpuscular Volume 89 fL (79-100) Mean Corpuscular Hemoglobin 30 pg (25-35) Mean Corpuscular Hemoglobin Concent 33 g/dL (31-37) Red Cell Distribution Width 14.6 % (11.5-14.5) Platelet Count 317 x10^3/uL (140-400) Sodium Level 132 mmol/L (136-145) Potassium Level 3.6 mmol/L (3.5-5.1) Chloride Level 96 mmol/L (98-107) Carbon Dioxide Level 32 mmol/L (21-32) Anion Gap 4 (6-14) Blood Urea Nitrogen 13 mg/dL (7-20) Creatinine 0.5 mg/dL (0.6-1.0) Estimated GFR (Cockcroft-Gault) 142.6 BUN/Creatinine Ratio 26 (6-20) Glucose Level 174 mg/dL (70-99) Calcium Level 8.3 mg/dL (8.5-10.1) Phosphorus Level 2.0 mg/dL (2.6-4.7) Magnesium Level 1.8 mg/dL (1.8-2.4) Total Bilirubin 0.6 mg/dL (0.2-1.0) Aspartate Amino Transf (AST/SGOT) 29 U/L (15-37) Alanine Aminotransferase (ALT/SGPT) 14 U/L (14-59) Alkaline Phosphatase 87 U/L (46-116) Total Protein 6.3 g/dL (6.4-8.2) Albumin 2.3 g/dL (3.4-5.0) Albumin/Globulin Ratio 0.6 (1.0-1.7) Laboratory Tests Test 03/01/17 19:47 03/02/17 02:39 03/02/17 06:30 03/02/17 11:31 Glucose (Fingerstick) 110 mg/dL (70-99) 177 mg/dL (70-99) 188 mg/dL (70-99) 134 mg/dL (70-99) White Blood Count 8.9 x10^3/uL (4.0-11.0) Red Blood Count 3.97 x10^6/uL (3.50-5.40) Hemoglobin 11.8 g/dL (12.0-15.5) Hematocrit 35.3 % (36.0-47.0) Mean Corpuscular Volume 89 fL (79-100) Mean Corpuscular Hemoglobin 30 pg (25-35) Mean Corpuscular Hemoglobin Concent 33 g/dL (31-37) Red Cell Distribution Width 14.6 % (11.5-14.5) Platelet Count 317 x10^3/uL (140-400) Sodium Level 132 mmol/L (136-145) Potassium Level 3.6 mmol/L (3.5-5.1) Chloride Level 96 mmol/L (98-107) Carbon Dioxide Level 32 mmol/L (21-32) Anion Gap 4 (6-14) Blood Urea Nitrogen 13 mg/dL (7-20) Creatinine 0.5 mg/dL (0.6-1.0) Estimated GFR (Cockcroft-Gault) 142.6 BUN/Creatinine Ratio 26 (6-20) Glucose Level 174 mg/dL (70-99) Calcium Level 8.3 mg/dL (8.5-10.1) Phosphorus Level 2.0 mg/dL (2.6-4.7) Magnesium Level 1.8 mg/dL (1.8-2.4) Total Bilirubin 0.6 mg/dL (0.2-1.0) Aspartate Amino Transf (AST/SGOT) 29 U/L (15-37) Alanine Aminotransferase (ALT/SGPT) 14 U/L (14-59) Alkaline Phosphatase 87 U/L (46-116) Total Protein 6.3 g/dL (6.4-8.2) Albumin 2.3 g/dL (3.4-5.0) Albumin/Globulin Ratio 0.6 (1.0-1.7) Problem List Problems Medical Problems: (1) Hypokalemia Status: Acute (2) Hyponatremia Status: Acute Assessment/Plan SBO bowel rest, hydration, NG Problems: KONRAD ARREAGA APRN Mar 02, 2017 13:36
[2017-03-02 14:08] LABS: BILIRUBIN,URINE SMALL (NEG); GLUCOSE,URINE NEGATIVE (NEG); NITRITE,URINE NEGATIVE (NEG); PROTEIN,URINE 30 mg/dL (NEG-TRACE)
[2017-03-02] MEDS ORDERED: PHENOL ORAL SPRAY 177ML BOTTLE. PO PRN (14:30)
[2017-03-02] MEDS ORDERED: BENZOCAINE/MENTHOL LOZENGE. PO PRN (14:30)
[2017-03-02 14:42] LABS: BACTERIA,URINE MODERATE /HPF (0-FEW); RBC,URINE 0 /HPF (0-2); SQUAMOUS EPITHELIAL CELL,UR OCC /LPF
[2017-03-02 15:00] VITALS: BP 117/69
--- NOTE | 2017-03-02 16:34 | PDOC ---
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 ROS - has abd pain Objective Objective Vital Signs Date Time Temp Pulse Resp B/P (MAP) Pulse Ox O2 Delivery O2 Flow Rate FiO2 03/02/17 15:00 98.0 103 16 117/69 (85) 96 Room Air 98.0 Intake and Output 03/02/17 07:00 Intake Total 120 ml Output Total 300 ml Balance -180 ml Intake Oral 120 ml Output Urine Total 300 ml # Voids 1 Physical Exam General: Alert, Oriented X3, No acute distress Neuro: Normal speech Psych/Mental Status: Mental status NL Assessment Assessment Problems Medical Problems: (1) Hypokalemia Status: Acute (2) Hyponatremia Status: Acute IMPRESSION AND PLAN: 1. 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 I have recommended palliative chemotherapy with Xeloda once her symptoms of small bowel obstruction improve. The treatment will be done as an outpatient under a clinical trial protocol. I reviewed the risks and benefits of chemotherapy and she understands and agrees to proceed with it once she starts feeling better. 2. Small bowel obstruction. I appreciate management by Dr. Zuleta. 3. Anemia secondary to malignancy. Continue to monitor. Hb 8.3 Comment Review of Relevant I have reviewed the following items alisson (where applicable) has been applied. Labs Laboratory Tests Test 02/28/17 22:40 03/01/17 03:00 03/01/17 19:47 03/02/17 02:39 Troponin I Quantitative < 0.017 ng/mL (0.000-0.055) White Blood Count 7.3 x10^3/uL (4.0-11.0) Red Blood Count 3.78 x10^6/uL (3.50-5.40) Hemoglobin 11.3 g/dL (12.0-15.5) Hematocrit 33.7 % (36.0-47.0) Mean Corpuscular Volume 89 fL (79-100) Mean Corpuscular Hemoglobin 30 pg (25-35) Mean Corpuscular Hemoglobin Concent 33 g/dL (31-37) Red Cell Distribution Width 14.8 % (11.5-14.5) Platelet Count 333 x10^3/uL (140-400) Neutrophils (%) (Auto) 67 % (31-73) Lymphocytes (%) (Auto) 20 % (24-48) Monocytes (%) (Auto) 12 % (0-9) Eosinophils (%) (Auto) 1 % (0-3) Basophils (%) (Auto) 0 % (0-3) Neutrophils # (Auto) 4.8 x10^3uL (1.8-7.7) Lymphocytes # (Auto) 1.5 x10^3/uL (1.0-4.8) Monocytes # (Auto) 0.9 x10^3/uL (0.0-1.1) Eosinophils # (Auto) 0.1 x10^3/uL (0.0-0.7) Basophils # (Auto) 0.0 x10^3/uL (0.0-0.2) Sodium Level 132 mmol/L (136-145) Potassium Level 3.2 mmol/L (3.5-5.1) Chloride Level 92 mmol/L (98-107) Carbon Dioxide Level 31 mmol/L (21-32) Anion Gap 9 (6-14) Blood Urea Nitrogen 13 mg/dL (7-20) Creatinine 0.6 mg/dL (0.6-1.0) Estimated GFR (Cockcroft-Gault) 115.5 BUN/Creatinine Ratio 22 (6-20) Glucose Level 63 mg/dL (70-99) Calcium Level 8.6 mg/dL (8.5-10.1) Total Bilirubin 0.7 mg/dL (0.2-1.0) Aspartate Amino Transf (AST/SGOT) 29 U/L (15-37) Alanine Aminotransferase (ALT/SGPT) 13 U/L (14-59) Alkaline Phosphatase 80 U/L (46-116) Total Protein 6.1 g/dL (6.4-8.2) Albumin 2.5 g/dL (3.4-5.0) Albumin/Globulin Ratio 0.7 (1.0-1.7) Glucose (Fingerstick) 110 mg/dL (70-99) 177 mg/dL (70-99) Test 03/02/17 06:30 03/02/17 11:31 03/02/17 14:00 White Blood Count 8.9 x10^3/uL (4.0-11.0) Red Blood Count 3.97 x10^6/uL (3.50-5.40) Hemoglobin 11.8 g/dL (12.0-15.5) Hematocrit 35.3 % (36.0-47.0) Mean Corpuscular Volume 89 fL (79-100) Mean Corpuscular Hemoglobin 30 pg (25-35) Mean Corpuscular Hemoglobin Concent 33 g/dL (31-37) Red Cell Distribution Width 14.6 % (11.5-14.5) Platelet Count 317 x10^3/uL (140-400) Sodium Level 132 mmol/L (136-145) Potassium Level 3.6 mmol/L (3.5-5.1) Chloride Level 96 mmol/L (98-107) Carbon Dioxide Level 32 mmol/L (21-32) Anion Gap 4 (6-14) Blood Urea Nitrogen 13 mg/dL (7-20) Creatinine 0.5 mg/dL (0.6-1.0) Estimated GFR (Cockcroft-Gault) 142.6 BUN/Creatinine Ratio 26 (6-20) Glucose Level 174 mg/dL (70-99) Glucose (Fingerstick) 188 mg/dL (70-99) 134 mg/dL (70-99) Calcium Level 8.3 mg/dL (8.5-10.1) Phosphorus Level 2.0 mg/dL (2.6-4.7) Magnesium Level 1.8 mg/dL (1.8-2.4) Total Bilirubin 0.6 mg/dL (0.2-1.0) Aspartate Amino Transf (AST/SGOT) 29 U/L (15-37) Alanine Aminotransferase (ALT/SGPT) 14 U/L (14-59) Alkaline Phosphatase 87 U/L (46-116) Total Protein 6.3 g/dL (6.4-8.2) Albumin 2.3 g/dL (3.4-5.0) Albumin/Globulin Ratio 0.6 (1.0-1.7) Urine Color Dilcia Urine Clarity Cloudy Urine pH 6.0 Urine Specific [place] 1.025 Urine Protein 30 mg/dL (NEG-TRACE) Urine Glucose (UA) Negative mg/dL (NEG) Urine Ketones (Stick) 15 mg/dL (NEG) Urine Blood Negative (NEG) Urine Nitrite Negative (NEG) Urine Bilirubin Small (NEG) Urine Urobilinogen Dipstick 1.0 mg/dL (0.2 mg/dL) Urine Leukocyte Esterase Moderate (NEG) Urine RBC 0 /HPF (0-2) Urine WBC 5-10 /HPF (0-4) Urine Squamous Epithelial Cells Occ /LPF Urine Bacteria Moderate /HPF (0-FEW) Urine Mucus Mod /LPF Laboratory Tests Test 03/01/17 19:47 03/02/17 02:39 03/02/17 06:30 03/02/17 11:31 Glucose (Fingerstick) 110 mg/dL (70-99) 177 mg/dL (70-99) 188 mg/dL (70-99) 134 mg/dL (70-99) White Blood Count 8.9 x10^3/uL (4.0-11.0) Red Blood Count 3.97 x10^6/uL (3.50-5.40) Hemoglobin 11.8 g/dL (12.0-15.5) Hematocrit 35.3 % (36.0-47.0) Mean Corpuscular Volume 89 fL (79-100) Mean Corpuscular Hemoglobin 30 pg (25-35) Mean Corpuscular Hemoglobin Concent 33 g/dL (31-37) Red Cell Distribution Width 14.6 % (11.5-14.5) Platelet Count 317 x10^3/uL (140-400) Sodium Level 132 mmol/L (136-145) Potassium Level 3.6 mmol/L (3.5-5.1) Chloride Level 96 mmol/L (98-107) Carbon Dioxide Level 32 mmol/L (21-32) Anion Gap 4 (6-14) Blood Urea Nitrogen 13 mg/dL (7-20) Creatinine 0.5 mg/dL (0.6-1.0) Estimated GFR (Cockcroft-Gault) 142.6 BUN/Creatinine Ratio 26 (6-20) Glucose Level 174 mg/dL (70-99) Calcium Level 8.3 mg/dL (8.5-10.1) Phosphorus Level 2.0 mg/dL (2.6-4.7) Magnesium Level 1.8 mg/dL (1.8-2.4) Total Bilirubin 0.6 mg/dL (0.2-1.0) Aspartate Amino Transf (AST/SGOT) 29 U/L (15-37) Alanine Aminotransferase (ALT/SGPT) 14 U/L (14-59) Alkaline Phosphatase 87 U/L (46-116) Total Protein 6.3 g/dL (6.4-8.2) Albumin 2.3 g/dL (3.4-5.0) Albumin/Globulin Ratio 0.6 (1.0-1.7) Test 03/02/17 14:00 Urine Color Dilcia Urine Clarity Cloudy Urine pH 6.0 Urine Specific [place] 1.025 Urine Protein 30 mg/dL (NEG-TRACE) Urine Glucose (UA) Negative mg/dL (NEG) Urine Ketones (Stick) 15 mg/dL (NEG) Urine Blood Negative (NEG) Urine Nitrite Negative (NEG) Urine Bilirubin Small (NEG) Urine Urobilinogen Dipstick 1.0 mg/dL (0.2 mg/dL) Urine Leukocyte Esterase Moderate (NEG) Urine RBC 0 /HPF (0-2) Urine WBC 5-10 /HPF (0-4) Urine Squamous Epithelial Cells Occ /LPF Urine Bacteria Moderate /HPF (0-FEW) Urine Mucus Mod /LPF Microbiology 02/28/17 Urine Culture - Preliminary, Resulted 02/28/17 Urine Culture Result 1 (YOLANDA), Resulted Pending 02/28/17 Urine Culture Result 2 (YOLANDA) - Preliminary, Resulted Medications Current Medications Ondansetron HCl (Zofran) 4 mg 1X ONCE IV Last administered on 02/28/17 09:50 ; Start 02/28/17 at 09:30; Stop 02/28/17 at 09:31; Status DC Sodium Chloride 1,000 ml @ 1,000 mls/hr 1X ONCE IV Last administered on 02/28 13:34; Start 02/28/17 at 11:00; Stop 02/28/17 at 11:59; Status DC Ondansetron HCl (Zofran) 4 mg PRN Q8HRS PRN IV NAUSEA/VOMITING Last administered on 02/28/17 11:36; Start 02/28/17 at 10:45; Stop 03/01/17 at 10 :44; Status DC Morphine Sulfate 2 mg PRN Q2HR PRN IV PAIN Last administered on 02/28/17 11: 38; Start 02/28/17 at 10:45; Stop 03/01/17 at 10:44; Status DC Potassium Chloride (Klor-Con) 40 meq 1X ONCE PO Last administered on 16:17; Start 02/28/17 at 11:00; Stop 02/28/17 at 11:01; Status DC Potassium Chloride/Dextrose/ Sod Cl 1,000 ml @ 100 mls/hr Q10H IV Last administered on 03/01/17 09:05; Start 02/28/17 at 13:00 Magnesium Sulfate/ Dextrose 100 ml @ 25 mls/hr 1X ONCE IV Last administered on 02/28/17 14:36; Start 02/28/17 at 13:00; Stop 02/28/17 at 16:59; Status DC Pantoprazole Sodium (Protonix Vial) 40 mg DAILYAC IVP Last administered on 06:07; Start 02/28/17 at 13:00 Potassium Chloride 40 meq/ Dextrose 1,020 ml @ 75 mls/hr 1X ONCE IV ; Start 03/01/17 at 10:00; Stop 03/01/17 at 23:35; Status UNV Potassium Chloride 10 meq/ Sodium Chloride 105 ml @ 210 mls/hr Q1HR IV Last administered on 03/01/17 13:50; Start 03/01/17 at 11:00; Stop 03/01/17 at 14 :29; Status DC Info 1 each PRN DAILY PRN MC SEE COMMENTS Last administered on 03/02/17 11:16 ; Start 03/01/17 at 12:00 Sodium Chloride 90 meq/Potassium Chloride 50 meq/ Potassium Phosphate 13.6 mmol/ Magnesium Sulfate 10 meq/ Calcium Gluconate 10 meq/ Multivitamins 10 ml/Chromium / Copper/Manganese/ Seleni/Zn 1 ml/ Total Parenteral Nutrition/Amino Acids/ Dextrose/ Fat Emulsion Intravenous 1,512 ml @ 63 mls/hr TPN CONT IV Last administered on 03/01/17 22:38; Start 03/01/17 at 22:00; Stop 03/02/17 at 21 :59 Sucralfate (Carafate) 1 gm QIDPMEDS PO ; Start 03/02/17 at 10:00; Stop at 10:00; Status Cancel Ondansetron HCl (Zofran) 4 mg PRN Q6HRS PRN IV NAUSEA/VOMITING; Start at 10:00 Sodium Chloride 110 meq/Potassium Chloride 50 meq/ Potassium Phosphate 18 mmol/ Magnesium Sulfate 10 meq/Calcium Gluconate 10 meq/ Multivitamins 10 ml/Chromium / Copper/Manganese/ Seleni/Zn 1 ml/ Total Parenteral Nutrition/Amino Acids/ Dextrose/ Fat Emulsion Intravenous 1,512 ml @ 63 mls/hr TPN CONT IV ; Start 03/02/17 at 22:00; Stop 03/03/17 at 21:59 Lidocaine HCl (Glydo (Lidocaine) Jelly) 1 jigar 1X ONCE MM Last administered on 03/02/17t 14:10; Start 03/02/17 at 13:30; Stop 03/02/17 at 13:34; Status DC Benzocaine (Hurricaine One) 1 spray 1X ONCE MM Last administered on t 15:35; Start 03/02/17 at 13:30; Stop 03/02/17 at 13:34; Status DC Throat Lozenges (Chloraseptic) 1 spray PRN Q2HR PRN PO SORE THROAT; Start at 14:30 Throat Lozenges (Cepacol Sore Throat Lozenge) 1 lana PRN Q2HRS PRN PO SORE THROAT; Start 03/02/17 at 14:30 Active Scripts Active Reported Eliquis (Apixaban) 5 Mg Tablet 5 Mg PO BID Sucralfate 1 Gm Tablet 1 Gm PO BID Sotalol Af (Sotalol Hcl) 80 Mg Tablet 80 Mg PO BID Dronabinol 2.5 Mg Capsule 2.5 Mg PO BID Hydrochlorothiazide Tablet (Hydrochlorothiazide) 25 Mg Tablet 25 Mg PO DAILY Omeprazole 40 Mg Capsule. 1 Cap PO DAILY Gave this morning Take in am Vitals/I & O Vital Sign - Last 24 Hours 03/01/17 03/01/17 03/01/17 03/02/17 19:15 20:00 23:28 02:49 Temp 98.6 98.0 97.5 98.6 98.0 97.5 Pulse 80 89 92 Resp 16 16 16 B/P (MAP) 129/68 (88) 138/76 (96) 135/77 (96) Pulse Ox 96 95 96 O2 Delivery Room Air Room Air Room Air Room Air 03/02/17 03/02/17 03/02/17 03/02/17 07:00 07:40 10:56 15:00 Temp 97.8 98.1 98.0 97.8 98.1 98.0 Pulse 101 95 103 Resp 16 16 16 B/P (MAP) 128/74 (92) 111/66 (81) 117/69 (85) Pulse Ox 95 96 96 O2 Delivery Room Air Room Air Room Air Room Air Intake and Output 03/01/17 03/01/17 03/02/17 15:00 23:00 07:00 Intake Total 0 ml 120 ml Output Total 300 ml Balance -300 ml 120 ml Nutrition Consultation Dietary Evaluation: Recommendations by RD: PPN/TPN Comments: TPN: 195 g dextrose, 60 g AA, 20 g lipid Expected Outcomes/Goals: to meet > 60% est nutrition needs via TPN Interpretation of weight loss: >10% in 6 months Malnutrition Findings: Body Fat Depletion (Non Severe: Mild Depletion Weight Status: Appropriate GEENA VELEZ MD Mar 02, 2017 16:34
[2017-03-02 19:00] VITALS: BP 137/78
[2017-03-02] MEDS ORDERED: [UNRECOGNIZED DRUG - OTHER] IV SCH ×10 (22:00)
[2017-03-02] MEDS ORDERED: TOTAL PARENTERAL NUTRITION IV SCH ×10 (22:00)
[2017-03-02] MEDS ORDERED: DEXTROSE 70% IV SCH ×10 (22:00)
[2017-03-02] MEDS ORDERED: AMINO ACIDS IV SCH ×10 (22:00)
[2017-03-02 23:00] VITALS: BP 138/83
[2017-03-03] MEDS: POTASSIUM CL 20MEQ D5-0.45NACL 1,000 ML IV SCH ×3 (01:00→21:00)
[2017-03-03 03:00] VITALS: BP 125/74
[2017-03-03 04:30] LABS: HEMATOCRIT 34.1 % (36.0-47.0); HEMOGLOBIN 11.6 g/dL (12.0-15.5); RED BLOOD COUNT 3.86 x10^6/uL (3.50-5.40); RED CELL DISTRIBUTION WIDTH 14.9 % (11.5-14.5); WHITE BLOOD COUNT 9.1 x10^3/uL (4.0-11.0)
[2017-03-03 04:44] LABS: CALCIUM 8.5 mg/dL (8.5-10.1); CREATININE 0.5 mg/dL (0.6-1.0); GFR 142.6; MAGNESIUM 1.9 mg/dL (1.8-2.4); PHOSPHORUS 2.2 mg/dL (2.6-4.7); POTASSIUM 3.9 mmol/L (3.5-5.1)
[2017-03-03] MEDS: PANTOPRAZOLE IV PUSH 40 MG VIAL. IVP SCH (06:27)
[2017-03-03 08:00] VITALS: BP 134/76
--- NOTE | 2017-03-03 08:38 | RAD ---
Supine and upright AP view abdomen 03/03/2017 Clinical indication: Small bowel obstruction. Comparison: Abdominal radiograph 03/02/2017. Findings: There is a transesophageal nasogastric tube with the distal tip overlying the pylorus and the proximal side port at the level of the gastric body. There is no significant change in gaseous dilatation of multiple small bowel loops with differential air-fluid levels. There is surgical suture material in the right lower quadrant of the abdomen. Internal fixation of the right proximal femur. No evidence of pneumoperitoneum. Impression: No significant change in findings consistent with small bowel obstruction. Progress radiographs to resolution could be performed if clinically indicated.
--- NOTE | 2017-03-03 09:09 | PDOC ---
SUBJECTIVE Subjective still not passing gas but feels better, no N/V OBJECTIVE Vital Signs Vital Signs Date Time Temp Pulse Resp B/P (MAP) Pulse Ox O2 Delivery O2 Flow Rate FiO2 03/03/17 08:00 98.1 90 18 134/76 (95) 100 Room Air 98.1 03/03/17 03:00 97.5 85 18 125/74 (91) 96 Room Air 97.5 03/02/17 23:00 97.9 101 18 138/83 (101) 97 Room Air 97.9 03/02/17 20:00 Room Air 03/02/17 19:00 98.2 99 18 137/78 (97) 94 Room Air 98.2 03/02/17 15:00 98.0 103 16 117/69 (85) 96 Room Air 98.0 03/02/17 10:56 98.1 95 16 111/66 (81) 96 Room Air 98.1 I & O Intake and Output 03/03/17 07:00 Intake Total 0 ml Output Total 2870 ml Balance -2870 ml Intake Oral 0 ml Output Urine Total 2500 ml Gastric Drainage Total 370 ml PHYSICAL EXAM Physical Exam lungs clear heart RRR abd less distended, NG in place with brownish fluid ext no edema ASSESSMENT/PLAN Assessment/Plan continue bowel rest, NGT and symptoms control, surgery following Problems: COMMENT Lab Laboratory Tests Test 03/02/17 11:31 03/02/17 14:00 03/02/17 16:53 03/03/17 04:15 Glucose (Fingerstick) 134 mg/dL (70-99) 150 mg/dL (70-99) Urine Color Dilcia Urine Clarity Cloudy Urine pH 6.0 Urine Specific [place] 1.025 Urine Protein 30 mg/dL (NEG-TRACE) Urine Glucose (UA) Negative mg/dL (NEG) Urine Ketones (Stick) 15 mg/dL (NEG) Urine Blood Negative (NEG) Urine Nitrite Negative (NEG) Urine Bilirubin Small (NEG) Urine Urobilinogen Dipstick 1.0 mg/dL (0.2 mg/dL) Urine Leukocyte Esterase Moderate (NEG) Urine RBC 0 /HPF (0-2) Urine WBC 5-10 /HPF (0-4) Urine Squamous Epithelial Cells Occ /LPF Urine Bacteria Moderate /HPF (0-FEW) Urine Mucus Mod /LPF White Blood Count 9.1 x10^3/uL (4.0-11.0) Red Blood Count 3.86 x10^6/uL (3.50-5.40) Hemoglobin 11.6 g/dL (12.0-15.5) Hematocrit 34.1 % (36.0-47.0) Mean Corpuscular Volume 89 fL (79-100) Mean Corpuscular Hemoglobin 30 pg (25-35) Mean Corpuscular Hemoglobin Concent 34 g/dL (31-37) Red Cell Distribution Width 14.9 % (11.5-14.5) Platelet Count 296 x10^3/uL (140-400) Sodium Level 132 mmol/L (136-145) Potassium Level 3.9 mmol/L (3.5-5.1) Chloride Level 99 mmol/L (98-107) Carbon Dioxide Level 32 mmol/L (21-32) Anion Gap 1 (6-14) Blood Urea Nitrogen 17 mg/dL (7-20) Creatinine 0.5 mg/dL (0.6-1.0) Estimated GFR (Cockcroft-Gault) 142.6 Glucose Level 151 mg/dL (70-99) Calcium Level 8.5 mg/dL (8.5-10.1) Phosphorus Level 2.2 mg/dL (2.6-4.7) Magnesium Level 1.9 mg/dL (1.8-2.4) Test 03/03/17 06:10 Glucose (Fingerstick) 155 mg/dL (70-99) JUAN TINEO MD Mar 03, 2017 09:09
[2017-03-03] MEDS ORDERED: LABETALOL 20 MG/4 ML DISP.SYRIN. IVP PRN (10:15)
[2017-03-03 11:00] VITALS: BP 136/74
--- NOTE | 2017-03-03 12:30 | PDOC ---
SURGICAL PROGRESS NOTE Subjective Pt reports feeling better, min pain, no N/V, no flatus Vital Signs Vital Signs Date Time Temp Pulse Resp B/P (MAP) Pulse Ox O2 Delivery O2 Flow Rate FiO2 03/03/17 08:00 Room Air 03/03/17 08:00 98.1 90 18 134/76 (95) 100 98.1 I&O Intake and Output 03/03/17 07:00 Intake Total 0 ml Output Total 2870 ml Balance -2870 ml Intake Oral 0 ml Output Urine Total 2500 ml Gastric Drainage Total 370 ml General: Alert, Oriented X3, Cooperative, No acute distress Abdomen: Soft, No tenderness, Other (NGT with bilious output, some distention, no masses) Labs Laboratory Tests Test 03/01/17 19:47 03/02/17 02:39 03/02/17 06:30 03/02/17 11:31 Glucose (Fingerstick) 110 mg/dL (70-99) 177 mg/dL (70-99) 188 mg/dL (70-99) 134 mg/dL (70-99) White Blood Count 8.9 x10^3/uL (4.0-11.0) Red Blood Count 3.97 x10^6/uL (3.50-5.40) Hemoglobin 11.8 g/dL (12.0-15.5) Hematocrit 35.3 % (36.0-47.0) Mean Corpuscular Volume 89 fL (79-100) Mean Corpuscular Hemoglobin 30 pg (25-35) Mean Corpuscular Hemoglobin Concent 33 g/dL (31-37) Red Cell Distribution Width 14.6 % (11.5-14.5) Platelet Count 317 x10^3/uL (140-400) Sodium Level 132 mmol/L (136-145) Potassium Level 3.6 mmol/L (3.5-5.1) Chloride Level 96 mmol/L (98-107) Carbon Dioxide Level 32 mmol/L (21-32) Anion Gap 4 (6-14) Blood Urea Nitrogen 13 mg/dL (7-20) Creatinine 0.5 mg/dL (0.6-1.0) Estimated GFR (Cockcroft-Gault) 142.6 BUN/Creatinine Ratio 26 (6-20) Glucose Level 174 mg/dL (70-99) Calcium Level 8.3 mg/dL (8.5-10.1) Phosphorus Level 2.0 mg/dL (2.6-4.7) Magnesium Level 1.8 mg/dL (1.8-2.4) Total Bilirubin 0.6 mg/dL (0.2-1.0) Aspartate Amino Transf (AST/SGOT) 29 U/L (15-37) Alanine Aminotransferase (ALT/SGPT) 14 U/L (14-59) Alkaline Phosphatase 87 U/L (46-116) Total Protein 6.3 g/dL (6.4-8.2) Albumin 2.3 g/dL (3.4-5.0) Albumin/Globulin Ratio 0.6 (1.0-1.7) Test 03/02/17 14:00 03/02/17 16:53 03/03/17 04:15 03/03/17 06:10 Urine Color Dilcia Urine Clarity Cloudy Urine pH 6.0 Urine Specific [place] 1.025 Urine Protein 30 mg/dL (NEG-TRACE) Urine Glucose (UA) Negative mg/dL (NEG) Urine Ketones (Stick) 15 mg/dL (NEG) Urine Blood Negative (NEG) Urine Nitrite Negative (NEG) Urine Bilirubin Small (NEG) Urine Urobilinogen Dipstick 1.0 mg/dL (0.2 mg/dL) Urine Leukocyte Esterase Moderate (NEG) Urine RBC 0 /HPF (0-2) Urine WBC 5-10 /HPF (0-4) Urine Squamous Epithelial Cells Occ /LPF Urine Bacteria Moderate /HPF (0-FEW) Urine Mucus Mod /LPF Glucose (Fingerstick) 150 mg/dL (70-99) 155 mg/dL (70-99) White Blood Count 9.1 x10^3/uL (4.0-11.0) Red Blood Count 3.86 x10^6/uL (3.50-5.40) Hemoglobin 11.6 g/dL (12.0-15.5) Hematocrit 34.1 % (36.0-47.0) Mean Corpuscular Volume 89 fL (79-100) Mean Corpuscular Hemoglobin 30 pg (25-35) Mean Corpuscular Hemoglobin Concent 34 g/dL (31-37) Red Cell Distribution Width 14.9 % (11.5-14.5) Platelet Count 296 x10^3/uL (140-400) Sodium Level 132 mmol/L (136-145) Potassium Level 3.9 mmol/L (3.5-5.1) Chloride Level 99 mmol/L (98-107) Carbon Dioxide Level 32 mmol/L (21-32) Anion Gap 1 (6-14) Blood Urea Nitrogen 17 mg/dL (7-20) Creatinine 0.5 mg/dL (0.6-1.0) Estimated GFR (Cockcroft-Gault) 142.6 Glucose Level 151 mg/dL (70-99) Calcium Level 8.5 mg/dL (8.5-10.1) Phosphorus Level 2.2 mg/dL (2.6-4.7) Magnesium Level 1.9 mg/dL (1.8-2.4) Laboratory Tests Test 03/02/17 14:00 03/02/17 16:53 03/03/17 04:15 03/03/17 06:10 Urine Color Dilcia Urine Clarity Cloudy Urine pH 6.0 Urine Specific [place] 1.025 Urine Protein 30 mg/dL (NEG-TRACE) Urine Glucose (UA) Negative mg/dL (NEG) Urine Ketones (Stick) 15 mg/dL (NEG) Urine Blood Negative (NEG) Urine Nitrite Negative (NEG) Urine Bilirubin Small (NEG) Urine Urobilinogen Dipstick 1.0 mg/dL (0.2 mg/dL) Urine Leukocyte Esterase Moderate (NEG) Urine RBC 0 /HPF (0-2) Urine WBC 5-10 /HPF (0-4) Urine Squamous Epithelial Cells Occ /LPF Urine Bacteria Moderate /HPF (0-FEW) Urine Mucus Mod /LPF Glucose (Fingerstick) 150 mg/dL (70-99) 155 mg/dL (70-99) White Blood Count 9.1 x10^3/uL (4.0-11.0) Red Blood Count 3.86 x10^6/uL (3.50-5.40) Hemoglobin 11.6 g/dL (12.0-15.5) Hematocrit 34.1 % (36.0-47.0) Mean Corpuscular Volume 89 fL (79-100) Mean Corpuscular Hemoglobin 30 pg (25-35) Mean Corpuscular Hemoglobin Concent 34 g/dL (31-37) Red Cell Distribution Width 14.9 % (11.5-14.5) Platelet Count 296 x10^3/uL (140-400) Sodium Level 132 mmol/L (136-145) Potassium Level 3.9 mmol/L (3.5-5.1) Chloride Level 99 mmol/L (98-107) Carbon Dioxide Level 32 mmol/L (21-32) Anion Gap 1 (6-14) Blood Urea Nitrogen 17 mg/dL (7-20) Creatinine 0.5 mg/dL (0.6-1.0) Estimated GFR (Cockcroft-Gault) 142.6 Glucose Level 151 mg/dL (70-99) Calcium Level 8.5 mg/dL (8.5-10.1) Phosphorus Level 2.2 mg/dL (2.6-4.7) Magnesium Level 1.9 mg/dL (1.8-2.4) I have reviewed the following KUB demonstrates SBO Problem List Problems Medical Problems: (1) Hypokalemia Status: Acute (2) Hyponatremia Status: Acute Assessment/Plan SBO, concern for metastatic colon cancer cont NGT and bowel rest, on TPN if not resolved, may need to consider surgical exploration Problems: ORLANDO NOVOA MD Mar 03, 2017 12:30
[2017-03-03] MEDS: TPN PER PHARMACY MC PRN (13:30)
[2017-03-03] MEDS ORDERED: OMEG100021 PO (14:02)
[2017-03-03] MEDS ORDERED: MULT1TAB52 PO (14:02)
[2017-03-03] MEDS ORDERED: CHOL10003 PO (14:02)
[2017-03-03] MEDS ORDERED: POLY17PO29 PO (14:02)
[2017-03-03 15:00] VITALS: BP 130/75
[2017-03-03] MEDS: NITROGLYCERIN 0.1MG/HR PATCH. TD SCH (15:17)
--- NOTE | 2017-03-03 17:01 | PDOC ---
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 ROS - abd pain better Objective Objective Vital Signs Date Time Temp Pulse Resp B/P (MAP) Pulse Ox O2 Delivery O2 Flow Rate FiO2 03/03/17 15:00 98.4 94 20 130/75 (93) 97 Room Air 98.4 Intake and Output 03/03/17 07:00 Intake Total 0 ml Output Total 2870 ml Balance -2870 ml Intake Oral 0 ml Output Urine Total 2500 ml Gastric Drainage Total 370 ml Physical Exam Heart: Normal S1, Normal S2 General: Alert, Oriented X3, No acute distress Lungs: Clear to auscultation Neuro: Normal speech Psych/Mental Status: Mental status NL Assessment Assessment Problems Medical Problems: (1) Hypokalemia Status: Acute (2) Hyponatremia Status: Acute IMPRESSION AND PLAN: 1. 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 I have recommended palliative chemotherapy with Xeloda once her symptoms of small bowel obstruction improve. The treatment will be done as an outpatient under a clinical trial protocol. I reviewed the risks and benefits of chemotherapy and she understands and agrees to proceed with it once she starts feeling better. 2. Small bowel obstruction. I appreciate management by Dr. Zuleta. NGT suction in place 3. Anemia secondary to malignancy. Continue to monitor. Hb 8.3 Comment Review of Relevant I have reviewed the following items alisson (where applicable) has been applied. Labs Laboratory Tests Test 03/01/17 19:47 03/02/17 02:39 03/02/17 06:30 03/02/17 11:31 Glucose (Fingerstick) 110 mg/dL (70-99) 177 mg/dL (70-99) 188 mg/dL (70-99) 134 mg/dL (70-99) White Blood Count 8.9 x10^3/uL (4.0-11.0) Red Blood Count 3.97 x10^6/uL (3.50-5.40) Hemoglobin 11.8 g/dL (12.0-15.5) Hematocrit 35.3 % (36.0-47.0) Mean Corpuscular Volume 89 fL (79-100) Mean Corpuscular Hemoglobin 30 pg (25-35) Mean Corpuscular Hemoglobin Concent 33 g/dL (31-37) Red Cell Distribution Width 14.6 % (11.5-14.5) Platelet Count 317 x10^3/uL (140-400) Sodium Level 132 mmol/L (136-145) Potassium Level 3.6 mmol/L (3.5-5.1) Chloride Level 96 mmol/L (98-107) Carbon Dioxide Level 32 mmol/L (21-32) Anion Gap 4 (6-14) Blood Urea Nitrogen 13 mg/dL (7-20) Creatinine 0.5 mg/dL (0.6-1.0) Estimated GFR (Cockcroft-Gault) 142.6 BUN/Creatinine Ratio 26 (6-20) Glucose Level 174 mg/dL (70-99) Calcium Level 8.3 mg/dL (8.5-10.1) Phosphorus Level 2.0 mg/dL (2.6-4.7) Magnesium Level 1.8 mg/dL (1.8-2.4) Total Bilirubin 0.6 mg/dL (0.2-1.0) Aspartate Amino Transf (AST/SGOT) 29 U/L (15-37) Alanine Aminotransferase (ALT/SGPT) 14 U/L (14-59) Alkaline Phosphatase 87 U/L (46-116) Total Protein 6.3 g/dL (6.4-8.2) Albumin 2.3 g/dL (3.4-5.0) Albumin/Globulin Ratio 0.6 (1.0-1.7) Test 03/02/17 14:00 03/02/17 16:53 03/03/17 04:15 03/03/17 06:10 Urine Color Dilcia Urine Clarity Cloudy Urine pH 6.0 Urine Specific [place] 1.025 Urine Protein 30 mg/dL (NEG-TRACE) Urine Glucose (UA) Negative mg/dL (NEG) Urine Ketones (Stick) 15 mg/dL (NEG) Urine Blood Negative (NEG) Urine Nitrite Negative (NEG) Urine Bilirubin Small (NEG) Urine Urobilinogen Dipstick 1.0 mg/dL (0.2 mg/dL) Urine Leukocyte Esterase Moderate (NEG) Urine RBC 0 /HPF (0-2) Urine WBC 5-10 /HPF (0-4) Urine Squamous Epithelial Cells Occ /LPF Urine Bacteria Moderate /HPF (0-FEW) Urine Mucus Mod /LPF Glucose (Fingerstick) 150 mg/dL (70-99) 155 mg/dL (70-99) White Blood Count 9.1 x10^3/uL (4.0-11.0) Red Blood Count 3.86 x10^6/uL (3.50-5.40) Hemoglobin 11.6 g/dL (12.0-15.5) Hematocrit 34.1 % (36.0-47.0) Mean Corpuscular Volume 89 fL (79-100) Mean Corpuscular Hemoglobin 30 pg (25-35) Mean Corpuscular Hemoglobin Concent 34 g/dL (31-37) Red Cell Distribution Width 14.9 % (11.5-14.5) Platelet Count 296 x10^3/uL (140-400) Sodium Level 132 mmol/L (136-145) Potassium Level 3.9 mmol/L (3.5-5.1) Chloride Level 99 mmol/L (98-107) Carbon Dioxide Level 32 mmol/L (21-32) Anion Gap 1 (6-14) Blood Urea Nitrogen 17 mg/dL (7-20) Creatinine 0.5 mg/dL (0.6-1.0) Estimated GFR (Cockcroft-Gault) 142.6 Glucose Level 151 mg/dL (70-99) Calcium Level 8.5 mg/dL (8.5-10.1) Phosphorus Level 2.2 mg/dL (2.6-4.7) Magnesium Level 1.9 mg/dL (1.8-2.4) Test 03/03/17 12:40 Glucose (Fingerstick) 156 mg/dL (70-99) Laboratory Tests Test 03/03/17 04:15 03/03/17 06:10 03/03/17 12:40 White Blood Count 9.1 x10^3/uL (4.0-11.0) Red Blood Count 3.86 x10^6/uL (3.50-5.40) Hemoglobin 11.6 g/dL (12.0-15.5) Hematocrit 34.1 % (36.0-47.0) Mean Corpuscular Volume 89 fL (79-100) Mean Corpuscular Hemoglobin 30 pg (25-35) Mean Corpuscular Hemoglobin Concent 34 g/dL (31-37) Red Cell Distribution Width 14.9 % (11.5-14.5) Platelet Count 296 x10^3/uL (140-400) Sodium Level 132 mmol/L (136-145) Potassium Level 3.9 mmol/L (3.5-5.1) Chloride Level 99 mmol/L (98-107) Carbon Dioxide Level 32 mmol/L (21-32) Anion Gap 1 (6-14) Blood Urea Nitrogen 17 mg/dL (7-20) Creatinine 0.5 mg/dL (0.6-1.0) Estimated GFR (Cockcroft-Gault) 142.6 Glucose Level 151 mg/dL (70-99) Calcium Level 8.5 mg/dL (8.5-10.1) Phosphorus Level 2.2 mg/dL (2.6-4.7) Magnesium Level 1.9 mg/dL (1.8-2.4) Glucose (Fingerstick) 155 mg/dL (70-99) 156 mg/dL (70-99) Microbiology 02/28/17 Urine Culture - Final, Complete 02/28/17 Urine Culture Result 1 (YOLANDA) - Final, Complete 02/28/17 Urine Culture Result 2 (YOLANDA) - Final, Complete 02/28/17 Antimicrobic Susceptibility - Final, Complete Medications Current Medications Ondansetron HCl (Zofran) 4 mg 1X ONCE IV Last administered on 02/28/17 09:50 ; Start 02/28/17 at 09:30; Stop 02/28/17 at 09:31; Status DC Sodium Chloride 1,000 ml @ 1,000 mls/hr 1X ONCE IV Last administered on 02/28 13:34; Start 02/28/17 at 11:00; Stop 02/28/17 at 11:59; Status DC Ondansetron HCl (Zofran) 4 mg PRN Q8HRS PRN IV NAUSEA/VOMITING Last administered on 02/28/17 11:36; Start 02/28/17 at 10:45; Stop 03/01/17 at 10 :44; Status DC Morphine Sulfate 2 mg PRN Q2HR PRN IV PAIN Last administered on 02/28/17 11: 38; Start 02/28/17 at 10:45; Stop 03/01/17 at 10:44; Status DC Potassium Chloride (Klor-Con) 40 meq 1X ONCE PO Last administered on 16:17; Start 02/28/17 at 11:00; Stop 02/28/17 at 11:01; Status DC Potassium Chloride/Dextrose/ Sod Cl 1,000 ml @ 100 mls/hr Q10H IV Last administered on 03/01/17 09:05; Start 02/28/17 at 13:00 Magnesium Sulfate/ Dextrose 100 ml @ 25 mls/hr 1X ONCE IV Last administered on 02/28/17 14:36; Start 02/28/17 at 13:00; Stop 02/28/17 at 16:59; Status DC Pantoprazole Sodium (Protonix Vial) 40 mg DAILYAC IVP Last administered on 06:27; Start 02/28/17 at 13:00 Potassium Chloride 40 meq/ Dextrose 1,020 ml @ 75 mls/hr 1X ONCE IV ; Start 03/01/17 at 10:00; Stop 03/01/17 at 23:35; Status UNV Potassium Chloride 10 meq/ Sodium Chloride 105 ml @ 210 mls/hr Q1HR IV Last administered on 03/01/17 13:50; Start 03/01/17 at 11:00; Stop 03/01/17 at 14 :29; Status DC Info 1 each PRN DAILY PRN MC SEE COMMENTS Last administered on 03/03/17 13:30 ; Start 03/01/17 at 12:00 Sodium Chloride 90 meq/Potassium Chloride 50 meq/ Potassium Phosphate 13.6 mmol/ Magnesium Sulfate 10 meq/ Calcium Gluconate 10 meq/ Multivitamins 10 ml/Chromium / Copper/Manganese/ Seleni/Zn 1 ml/ Total Parenteral Nutrition/Amino Acids/ Dextrose/ Fat Emulsion Intravenous 1,512 ml @ 63 mls/hr TPN CONT IV Last administered on 03/01/17 22:38; Start 03/01/17 at 22:00; Stop 03/02/17 at 21 :59; Status DC Sucralfate (Carafate) 1 gm QIDPMEDS PO ; Start 03/02/17 at 10:00; Stop at 10:00; Status Cancel Ondansetron HCl (Zofran) 4 mg PRN Q6HRS PRN IV NAUSEA/VOMITING; Start at 10:00 Sodium Chloride 110 meq/Potassium Chloride 50 meq/ Potassium Phosphate 18 mmol/ Magnesium Sulfate 10 meq/Calcium Gluconate 10 meq/ Multivitamins 10 ml/Chromium / Copper/Manganese/ Seleni/Zn 1 ml/ Total Parenteral Nutrition/Amino Acids/ Dextrose/ Fat Emulsion Intravenous 1,512 ml @ 63 mls/hr TPN CONT IV Last administered on 03/02/17 22:36; Start 03/02/17 at 22:00; Stop 03/03/17 at 21 :59 Lidocaine HCl (Glydo (Lidocaine) Jelly) 1 jigar 1X ONCE MM Last administered on 03/02/17 14:10; Start 03/02/17 at 13:30; Stop 03/02/17 at 13:34; Status DC Benzocaine (Hurricaine One) 1 spray 1X ONCE MM Last administered on 15:35; Start 03/02/17 at 13:30; Stop 03/02/17 at 13:34; Status DC Throat Lozenges (Chloraseptic) 1 spray PRN Q2HR PRN PO SORE THROAT; Start at 14:30 Throat Lozenges (Cepacol Sore Throat Lozenge) 1 lana PRN Q2HRS PRN PO SORE THROAT; Start 03/02/17 at 14:30 Enoxaparin Sodium (Lovenox 100mg Syringe) 70 mg Q12HR SQ ; Start 03/03/17 at 11 :00 Labetalol HCl (Normodyne) 20 mg PRN Q2HR PRN IVP HYPERTENSION, SEE COMMENTS; Start 03/03/17 at 10:15 Nitroglycerin (Nitro-Dur 0.1mg) 1 patch DAILY TD Last administered on 15:17; Start 03/03/17 at 11:00 Sodium Chloride 130 meq/Potassium Chloride 50 meq/ Potassium Phosphate 18 mmol/ Magnesium Sulfate 10 meq/Calcium Gluconate 10 meq/ Multivitamins 10 ml/Chromium / Copper/Manganese/ Seleni/Zn 1 ml/ Total Parenteral Nutrition/Amino Acids/ Dextrose/ Fat Emulsion Intravenous 1,512 ml @ 63 mls/hr TPN CONT IV ; Start 03/03/17 at 22:00; Stop 03/04/17 at 21:59 Active Scripts Active Reported Miralax (Polyethylene Glycol 3350) 17 Gm Powd.pack 1 Pkt PO DAILY PRN Fish Oil 1,000 mg Softgel ([place]-3/Dha/Epa/Fish Oil) 1,000 Mg Capsule 1,000 Mg PO DAILY Vitamin D3 (Cholecalciferol (Vitamin D3)) 1,000 Unit Tablet 1 Tab PO DAILY Multivitamins (Multivitamin) 1 Each Tablet 1 Tab PO DAILY Eliquis (Apixaban) 5 Mg Tablet 5 Mg PO BID Sucralfate 1 Gm Tablet 1 Gm PO BID Sotalol Af (Sotalol Hcl) 80 Mg Tablet 80 Mg PO BID Dronabinol 2.5 Mg Capsule 2.5 Mg PO BID Hydrochlorothiazide Tablet (Hydrochlorothiazide) 25 Mg Tablet 25 Mg PO DAILY Omeprazole 40 Mg Capsule.dr 1 Cap PO DAILY Gave this morning Take in am Vitals/I & O Vital Sign - Last 24 Hours 03/02/17 03/02/17 03/02/17 03/03/17 19:00 20:00 23:00 03:00 Temp 98.2 97.9 97.5 98.2 97.9 97.5 Pulse 99 101 85 Resp 18 18 18 B/P (MAP) 137/78 (97) 138/83 (101) 125/74 (91) Pulse Ox 94 97 96 O2 Delivery Room Air Room Air Room Air Room Air 03/03/17 03/03/17 03/03/17 03/03/17 08:00 08:00 11:00 15:00 Temp 98.1 98.1 98.4 98.1 98.1 98.4 Pulse 90 104 94 Resp 18 20 20 B/P (MAP) 134/76 (95) 136/74 (94) 130/75 (93) Pulse Ox 100 96 97 O2 Delivery Room Air Room Air Room Air Room Air Intake and Output 03/02/17 03/02/17 03/03/17 15:00 23:00 07:00 Intake Total 0 ml 0 ml Output Total 1500 ml 950 ml 420 ml Balance -1500 ml -950 ml -420 ml Nutrition Consultation Dietary Evaluation: Recommendations by RD: PPN/TPN Comments: TPN: 195 g dextrose, 60 g AA, 20 g lipid Expected Outcomes/Goals: to meet > 60% est nutrition needs via TPN Interpretation of weight loss: >10% in 6 months Malnutrition Findings: Body Fat Depletion (Non Severe: Mild Depletion Weight Status: Appropriate GEENA VELEZ MD Mar 03, 2017 17:01
[2017-03-03 19:00] VITALS: BP 126/72
[2017-03-03] MEDS ORDERED: [UNRECOGNIZED DRUG - OTHER] IV SCH ×10 (22:00)
[2017-03-03] MEDS ORDERED: AMINO ACIDS IV SCH ×10 (22:00)
[2017-03-03] MEDS ORDERED: TOTAL PARENTERAL NUTRITION IV SCH ×10 (22:00)
[2017-03-03] MEDS ORDERED: DEXTROSE 70% IV SCH ×10 (22:00)
[2017-03-03 23:00] VITALS: BP 104/62
[2017-03-04] MEDS ORDERED: IV 1/2 NORMAL SALINE 1,000 ML IV SCH (04:00)
[2017-03-04] MEDS ORDERED: DIGOXIN IV 500 MCG/2 ML AMPUL. IV ONE ×2 (04:00→05:15)
--- NOTE | 2017-03-04 04:02 | EKG ---
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
[2017-03-04 04:29] VITALS: BP 113/74
[2017-03-04 07:00] VITALS: BP 120/71
[2017-03-04] MEDS: POTASSIUM CL 20MEQ D5-0.45NACL 1,000 ML IV SCH ×2 (07:00→22:18)
[2017-03-04 07:50] LABS: HEMATOCRIT 33.7 % (36.0-47.0); HEMOGLOBIN 11.2 g/dL (12.0-15.5); RED BLOOD COUNT 3.76 x10^6/uL (3.50-5.40); RED CELL DISTRIBUTION WIDTH 14.8 % (11.5-14.5); WHITE BLOOD COUNT 9.1 x10^3/uL (4.0-11.0)
[2017-03-04 08:11] LABS: ALBUMIN/GLOBULIN RATIO 0.5 (1.0-1.7); CALCIUM 8.6 mg/dL (8.5-10.1); CREATININE 0.4 mg/dL (0.6-1.0); GFR 184.4; PHOSPHORUS 2.6 mg/dL (2.6-4.7); POTASSIUM 4.1 mmol/L (3.5-5.1); TOTAL BILIRUBIN 0.5 mg/dL (0.2-1.0); TOTAL PROTEIN 6.1 g/dL (6.4-8.2)
[2017-03-04] MEDS: PANTOPRAZOLE IV PUSH 40 MG VIAL. IVP SCH (08:46)
[2017-03-04] MEDS: NITROGLYCERIN 0.1MG/HR PATCH. TD SCH (08:48)
--- NOTE | 2017-03-04 08:53 | RAD ---
Abdominal radiograph 03/04/2017 Clinical indication: Follow-up small bowel obstruction. Comparison: Abdominal 03/03/2017 Findings: Partial visualization of nasogastric tube in similar position. No signal change in gaseous dilatation of multiple small bowel loops. There is a relative paucity of colonic gas. Impression: Unchanged findings of small bowel obstruction. Progress radiograph to resolution recommended.
--- NOTE | 2017-03-04 10:06 | PDOC2 ---
CARDIAC CONSULT DATE OF CONSULT Date of Consult DATE: 03/04/17 TIME: 09:54 REASON FOR CONSULT Reason for Consult: SVT REFERRING PHYSICIAN Referring Physician: Gisel SOURCE Source: Chart review, Patient HISTORY OF PRESENT ILLNESS HISTORY OF PRESENT ILLNESS This is a pleasant 82 yo female admitted for complains of nausea and vomiting. Also with episodes of diarrhea. She does have hx of PAFIB but has been taken off sotalol. She is also on eliquis still but last dose of all er meds was about Wednesday due to her GI symptoms. Denies any CP, palpitations and SOA. She does not take any AV ismael blocking agents. As an inpt overnight she developed SVT which failed vagal maneuver but responded to digoxin and this given due to her low BP. Initially she was also noted with low BP but better after IVF. She is significnat for colon CA with mets and in the process of starting chemo. Presently she is on SR and denies any cardiac complaints. PAST MEDICAL HISTORY Cardiovascular: HTN, Hyperlipidemia, Other (PAFIB) CENTRAL NERVOUS SYSTEM: Other (No pertinent history) GI: GERD, GI bleed, Other (hiatal hernia) Heme/Onc: Cancer (colon CA with metastasis) Hepatobiliary: No pertinent hx Psych: No pertinent hx Musculoskeletal: Osteoarthritis Rheumatologic: No pertinent hx Infectious disease: No pertinent hx ENT: No pertinent hx Endocrine: Osteoporosis Dermatology: No pertinent hx PAST SURGICAL HISTORY Past Surgical History: Arthroscopy, Colon Resection FAMILY HISTORY Family History: Hypertension SOCIAL HISTORY Smoke: No ALCOHOL: none Drugs: None Lives: with Family CURRENT MEDICATIONS CURRENT MEDICATIONS Current Medications Medications (Trade) Dose Ordered Sig/Becky Route PRN Reason Start Time Stop Time Status Last Admin Dose Admin Enoxaparin Sodium (Lovenox 100mg Syringe) 70 mg Q12HR SQ 03/03/17 11:00 03/04/17 08:46 Nitroglycerin (Nitro-Dur 0.1mg) 1 patch DAILY TD 03/03/17 11:00 03/04/17 08:48 Sodium Chloride 130 meq/Potassium Chloride 50 meq/ Potassium Phosphate 18 mmol/ Magnesium Sulfate 10 meq/Calcium Gluconate 10 meq/ Multivitamins 10 ml/Chromium/ Copper/Manganese/ Seleni/Zn 1 ml/ Total Parenteral Nutrition/Amino Acids/Dextrose/ Fat Emulsion Intravenous 1,512 ml @ 63 mls/hr TPN CONT IV 03/03/17 22:00 03/04/17 21:59 03/03/17 22:54 Digoxin (Lanoxin) 125 mcg 1X ONCE IV 03/04/17 04:00 03/04/17 04:01 DC 03/04/17 04:03 Sodium Chloride 1,000 ml @ 100 mls/hr Q10H IV 03/04/17 04:00 03/04/17 13:59 03/04/17 04:03 Digoxin (Lanoxin) 250 mcg 1X ONCE IV 03/04/17 05:15 03/04/17 05:17 DC 03/04/17 05:20 ALLERGIES ALLERGIES: Coded Allergies: No Known Drug Allergies (Unverified , 05/08/16) ROS Review of System 14 point ROS evaluated with pertinent positives noted per HPI PHYSICAL EXAM General: Alert, Oriented X3, Cooperative, No acute distress HEENT: Atraumatic, Mucous membr. moist/pink Lungs: Other (faint basilar crackles) Heart: Regular rate (SR/ST), Normal S1, Normal S2, Other (2/6 systolic murmur to LLS border) Abdomen: Soft, Other (ascites, NGT in place) Extremities: No cyanosis, No edema Skin: No breakdown, No significant lesion Neuro: Normal speech, Sensation intact Psych/Mental Status: Mental status NL, Other (flat affect) MUSCULOSKELETAL: Osteoarthritic changes both hands VITALS VITALS Vital Signs Date Time Temp Pulse Resp B/P (MAP) Pulse Ox O2 Delivery O2 Flow Rate FiO2 03/04/17 07:00 98.5 94 19 120/71 (87) 96 Room Air 98.5 LABS Lab: Laboratory Tests Test 03/03/17 12:40 03/04/17 01:53 03/04/17 06:27 03/04/17 07:40 Glucose (Fingerstick) 156 mg/dL (70-99) 152 mg/dL (70-99) 147 mg/dL (70-99) White Blood Count 9.1 x10^3/uL (4.0-11.0) Red Blood Count 3.76 x10^6/uL (3.50-5.40) Hemoglobin 11.2 g/dL (12.0-15.5) Hematocrit 33.7 % (36.0-47.0) Mean Corpuscular Volume 90 fL (79-100) Mean Corpuscular Hemoglobin 30 pg (25-35) Mean Corpuscular Hemoglobin Concent 33 g/dL (31-37) Red Cell Distribution Width 14.8 % (11.5-14.5) Platelet Count 203 x10^3/uL (140-400) Sodium Level 136 mmol/L (136-145) Potassium Level 4.1 mmol/L (3.5-5.1) Chloride Level 102 mmol/L (98-107) Carbon Dioxide Level 27 mmol/L (21-32) Anion Gap 7 (6-14) Blood Urea Nitrogen 17 mg/dL (7-20) Creatinine 0.4 mg/dL (0.6-1.0) Estimated GFR (Cockcroft-Gault) 184.4 BUN/Creatinine Ratio 43 (6-20) Glucose Level 138 mg/dL (70-99) Calcium Level 8.6 mg/dL (8.5-10.1) Phosphorus Level 2.6 mg/dL (2.6-4.7) Magnesium Level 2.0 mg/dL (1.8-2.4) Total Bilirubin 0.5 mg/dL (0.2-1.0) Aspartate Amino Transf (AST/SGOT) 25 U/L (15-37) Alanine Aminotransferase (ALT/SGPT) 14 U/L (14-59) Alkaline Phosphatase 83 U/L (46-116) Total Protein 6.1 g/dL (6.4-8.2) Albumin 2.0 g/dL (3.4-5.0) Albumin/Globulin Ratio 0.5 (1.0-1.7) ASSESSMENT/PLAN ASSESSMENT/PLAN 1. SBO 2. Colon CA with liver metastasis 3. PSVT: responded with digoxin. Maintaining SR. Likely reactive to lyte imbalance/dehydration/SBO 4. Hx of PAFIB: has been off sotalol, per home no coverage but on eliquis 5. Dehydration/protein malnutrition Recommendations 1. TPN ongoing 2. BP much better. Start on low dose IV lopressor while NPO and may uptitrate as warranted. 3. TTE today. Hold eliquis for any possible surgery Problems: VIOLA LOZANO APRN Mar 04, 2017 10:06
--- NOTE | 2017-03-04 10:07 | PDOC ---
SUBJECTIVE Subjective events noted with SVT last night, better today, was asymptomatic OBJECTIVE Vital Signs Vital Signs Date Time Temp Pulse Resp B/P (MAP) Pulse Ox O2 Delivery O2 Flow Rate FiO2 03/04/17 07:00 98.5 94 19 120/71 (87) 96 Room Air 98.5 03/04/17 05:20 157 113/74 03/04/17 05:00 Room Air 03/04/17 04:29 98.1 164 14 113/74 (87) 96 Room Air 98.1 03/04/17 04:03 95 86/62 03/03/17 23:00 97.7 95 18 104/62 (76) 94 Room Air 97.7 03/03/17 20:15 Room Air 03/03/17 19:00 97.9 96 18 126/72 (90) 98 Room Air 97.9 03/03/17 15:00 98.4 94 20 130/75 (93) 97 Room Air 98.4 03/03/17 11:00 98.1 104 20 136/74 (94) 96 Room Air 98.1 PHYSICAL EXAM Physical Exam lungs decrease BS no rales heart RRR better today abd softer, very faint BS ext no edema ASSESSMENT/PLAN Assessment/Plan 1- SVT episode last night due to dehydration better with fluid and digoxin 2-hx A Fib paroxysmal on anticoagulation 3- small bowel obstruction on bowel rest, NGT in place 4-Metastatic colon CA 5- Hx HTN now Bp on low side continue to monitor 6-Hx anemia iron deficiency 7- hypokalemia, hyponatremia replaced 8-malnourished and significant wt loss on TPN Problems: COMMENT Lab Laboratory Tests Test 03/03/17 12:40 03/04/17 01:53 03/04/17 06:27 03/04/17 07:40 Glucose (Fingerstick) 156 mg/dL (70-99) 152 mg/dL (70-99) 147 mg/dL (70-99) White Blood Count 9.1 x10^3/uL (4.0-11.0) Red Blood Count 3.76 x10^6/uL (3.50-5.40) Hemoglobin 11.2 g/dL (12.0-15.5) Hematocrit 33.7 % (36.0-47.0) Mean Corpuscular Volume 90 fL (79-100) Mean Corpuscular Hemoglobin 30 pg (25-35) Mean Corpuscular Hemoglobin Concent 33 g/dL (31-37) Red Cell Distribution Width 14.8 % (11.5-14.5) Platelet Count 203 x10^3/uL (140-400) Sodium Level 136 mmol/L (136-145) Potassium Level 4.1 mmol/L (3.5-5.1) Chloride Level 102 mmol/L (98-107) Carbon Dioxide Level 27 mmol/L (21-32) Anion Gap 7 (6-14) Blood Urea Nitrogen 17 mg/dL (7-20) Creatinine 0.4 mg/dL (0.6-1.0) Estimated GFR (Cockcroft-Gault) 184.4 BUN/Creatinine Ratio 43 (6-20) Glucose Level 138 mg/dL (70-99) Calcium Level 8.6 mg/dL (8.5-10.1) Phosphorus Level 2.6 mg/dL (2.6-4.7) Magnesium Level 2.0 mg/dL (1.8-2.4) Total Bilirubin 0.5 mg/dL (0.2-1.0) Aspartate Amino Transf (AST/SGOT) 25 U/L (15-37) Alanine Aminotransferase (ALT/SGPT) 14 U/L (14-59) Alkaline Phosphatase 83 U/L (46-116) Total Protein 6.1 g/dL (6.4-8.2) Albumin 2.0 g/dL (3.4-5.0) Albumin/Globulin Ratio 0.5 (1.0-1.7) JUAN TINEO MD Mar 04, 2017 10:07
[2017-03-04 11:00] VITALS: BP 121/69
[2017-03-04] MEDS: METOPROLOL TARTRATE 5 MG/5 ML VIAL. IVP SCH ×4 (11:00→23:48)
--- NOTE | 2017-03-04 11:31 | PDOC ---
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 ROS - no abd pain Objective Objective Vital Signs Date Time Temp Pulse Resp B/P (MAP) Pulse Ox O2 Delivery O2 Flow Rate FiO2 03/04/17 11:00 97.8 104 18 121/69 (86) 97 Room Air 97.8 Intake and Output 03/04/17 07:00 Intake Total 0 ml Output Total 50 ml Balance -50 ml Intake Oral 0 ml Gastric Drainage Total 50 ml # Voids 2 Physical Exam Heart: Normal S1, Normal S2 General: Alert, Oriented X3, No acute distress Neuro: Normal speech Psych/Mental Status: Mental status NL Assessment Assessment Problems Medical Problems: (1) Hypokalemia Status: Acute (2) Hyponatremia Status: Acute IMPRESSION AND PLAN: 1. 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 I have recommended palliative chemotherapy with Xeloda once her symptoms of small bowel obstruction improve. The treatment will be done as an outpatient under a clinical trial protocol. I reviewed the risks and benefits of chemotherapy and she understands and agrees to proceed with it once she starts feeling better. 2. Small bowel obstruction. I appreciate management by Dr. Zuleta. NGT suction in place 3. Anemia secondary to malignancy. Continue to monitor. Hb 11.2. Comment Review of Relevant I have reviewed the following items alisson (where applicable) has been applied. Labs Laboratory Tests Test 03/02/17 11:31 03/02/17 14:00 03/02/17 16:53 03/03/17 04:15 Glucose (Fingerstick) 134 mg/dL (70-99) 150 mg/dL (70-99) Urine Color Dilcia Urine Clarity Cloudy Urine pH 6.0 Urine Specific [place] 1.025 Urine Protein 30 mg/dL (NEG-TRACE) Urine Glucose (UA) Negative mg/dL (NEG) Urine Ketones (Stick) 15 mg/dL (NEG) Urine Blood Negative (NEG) Urine Nitrite Negative (NEG) Urine Bilirubin Small (NEG) Urine Urobilinogen Dipstick 1.0 mg/dL (0.2 mg/dL) Urine Leukocyte Esterase Moderate (NEG) Urine RBC 0 /HPF (0-2) Urine WBC 5-10 /HPF (0-4) Urine Squamous Epithelial Cells Occ /LPF Urine Bacteria Moderate /HPF (0-FEW) Urine Mucus Mod /LPF White Blood Count 9.1 x10^3/uL (4.0-11.0) Red Blood Count 3.86 x10^6/uL (3.50-5.40) Hemoglobin 11.6 g/dL (12.0-15.5) Hematocrit 34.1 % (36.0-47.0) Mean Corpuscular Volume 89 fL (79-100) Mean Corpuscular Hemoglobin 30 pg (25-35) Mean Corpuscular Hemoglobin Concent 34 g/dL (31-37) Red Cell Distribution Width 14.9 % (11.5-14.5) Platelet Count 296 x10^3/uL (140-400) Sodium Level 132 mmol/L (136-145) Potassium Level 3.9 mmol/L (3.5-5.1) Chloride Level 99 mmol/L (98-107) Carbon Dioxide Level 32 mmol/L (21-32) Anion Gap 1 (6-14) Blood Urea Nitrogen 17 mg/dL (7-20) Creatinine 0.5 mg/dL (0.6-1.0) Estimated GFR (Cockcroft-Gault) 142.6 Glucose Level 151 mg/dL (70-99) Calcium Level 8.5 mg/dL (8.5-10.1) Phosphorus Level 2.2 mg/dL (2.6-4.7) Magnesium Level 1.9 mg/dL (1.8-2.4) Test 03/03/17 06:10 03/03/17 12:40 03/04/17 01:53 03/04/17 06:27 Glucose (Fingerstick) 155 mg/dL (70-99) 156 mg/dL (70-99) 152 mg/dL (70-99) 147 mg/dL (70-99) Test 03/04/17 07:40 White Blood Count 9.1 x10^3/uL (4.0-11.0) Red Blood Count 3.76 x10^6/uL (3.50-5.40) Hemoglobin 11.2 g/dL (12.0-15.5) Hematocrit 33.7 % (36.0-47.0) Mean Corpuscular Volume 90 fL (79-100) Mean Corpuscular Hemoglobin 30 pg (25-35) Mean Corpuscular Hemoglobin Concent 33 g/dL (31-37) Red Cell Distribution Width 14.8 % (11.5-14.5) Platelet Count 203 x10^3/uL (140-400) Sodium Level 136 mmol/L (136-145) Potassium Level 4.1 mmol/L (3.5-5.1) Chloride Level 102 mmol/L (98-107) Carbon Dioxide Level 27 mmol/L (21-32) Anion Gap 7 (6-14) Blood Urea Nitrogen 17 mg/dL (7-20) Creatinine 0.4 mg/dL (0.6-1.0) Estimated GFR (Cockcroft-Gault) 184.4 BUN/Creatinine Ratio 43 (6-20) Glucose Level 138 mg/dL (70-99) Calcium Level 8.6 mg/dL (8.5-10.1) Phosphorus Level 2.6 mg/dL (2.6-4.7) Magnesium Level 2.0 mg/dL (1.8-2.4) Total Bilirubin 0.5 mg/dL (0.2-1.0) Aspartate Amino Transf (AST/SGOT) 25 U/L (15-37) Alanine Aminotransferase (ALT/SGPT) 14 U/L (14-59) Alkaline Phosphatase 83 U/L (46-116) Total Protein 6.1 g/dL (6.4-8.2) Albumin 2.0 g/dL (3.4-5.0) Albumin/Globulin Ratio 0.5 (1.0-1.7) Laboratory Tests Test 03/03/17 12:40 03/04/17 01:53 03/04/17 06:27 03/04/17 07:40 Glucose (Fingerstick) 156 mg/dL (70-99) 152 mg/dL (70-99) 147 mg/dL (70-99) White Blood Count 9.1 x10^3/uL (4.0-11.0) Red Blood Count 3.76 x10^6/uL (3.50-5.40) Hemoglobin 11.2 g/dL (12.0-15.5) Hematocrit 33.7 % (36.0-47.0) Mean Corpuscular Volume 90 fL (79-100) Mean Corpuscular Hemoglobin 30 pg (25-35) Mean Corpuscular Hemoglobin Concent 33 g/dL (31-37) Red Cell Distribution Width 14.8 % (11.5-14.5) Platelet Count 203 x10^3/uL (140-400) Sodium Level 136 mmol/L (136-145) Potassium Level 4.1 mmol/L (3.5-5.1) Chloride Level 102 mmol/L (98-107) Carbon Dioxide Level 27 mmol/L (21-32) Anion Gap 7 (6-14) Blood Urea Nitrogen 17 mg/dL (7-20) Creatinine 0.4 mg/dL (0.6-1.0) Estimated GFR (Cockcroft-Gault) 184.4 BUN/Creatinine Ratio 43 (6-20) Glucose Level 138 mg/dL (70-99) Calcium Level 8.6 mg/dL (8.5-10.1) Phosphorus Level 2.6 mg/dL (2.6-4.7) Magnesium Level 2.0 mg/dL (1.8-2.4) Total Bilirubin 0.5 mg/dL (0.2-1.0) Aspartate Amino Transf (AST/SGOT) 25 U/L (15-37) Alanine Aminotransferase (ALT/SGPT) 14 U/L (14-59) Alkaline Phosphatase 83 U/L (46-116) Total Protein 6.1 g/dL (6.4-8.2) Albumin 2.0 g/dL (3.4-5.0) Albumin/Globulin Ratio 0.5 (1.0-1.7) Microbiology 02/28/17 Urine Culture - Final, Complete 02/28/17 Urine Culture Result 1 (YOLANDA) - Final, Complete 02/28/17 Urine Culture Result 2 (YOLANDA) - Final, Complete 02/28/17 Antimicrobic Susceptibility - Final, Complete Medications Current Medications Ondansetron HCl (Zofran) 4 mg 1X ONCE IV Last administered on 02/28/17t 09:50 ; Start 02/28/17 at 09:30; Stop 02/28/17 at 09:31; Status DC Sodium Chloride 1,000 ml @ 1,000 mls/hr 1X ONCE IV Last administered on 02/28 13:34; Start 02/28/17 at 11:00; Stop 02/28/17 at 11:59; Status DC Ondansetron HCl (Zofran) 4 mg PRN Q8HRS PRN IV NAUSEA/VOMITING Last administered on 02/28/17 11:36; Start 02/28/17 at 10:45; Stop 03/01/17 at 10 :44; Status DC Morphine Sulfate 2 mg PRN Q2HR PRN IV PAIN Last administered on 02/28/17 11: 38; Start 02/28/17 at 10:45; Stop 03/01/17 at 10:44; Status DC Potassium Chloride (Klor-Con) 40 meq 1X ONCE PO Last administered on 16:17; Start 02/28/17 at 11:00; Stop 02/28/17 at 11:01; Status DC Potassium Chloride/Dextrose/ Sod Cl 1,000 ml @ 100 mls/hr Q10H IV Last administered on 03/01/17 09:05; Start 02/28/17 at 13:00 Magnesium Sulfate/ Dextrose 100 ml @ 25 mls/hr 1X ONCE IV Last administered on 02/28/17 14:36; Start 02/28/17 at 13:00; Stop 02/28/17 at 16:59; Status DC Pantoprazole Sodium (Protonix Vial) 40 mg DAILYAC IVP Last administered on 08:46; Start 02/28/17 at 13:00 Potassium Chloride 40 meq/ Dextrose 1,020 ml @ 75 mls/hr 1X ONCE IV ; Start 03/01/17 at 10:00; Stop 03/01/17 at 23:35; Status UNV Potassium Chloride 10 meq/ Sodium Chloride 105 ml @ 210 mls/hr Q1HR IV Last administered on 03/01/17 13:50; Start 03/01/17 at 11:00; Stop 03/01/17 at 14 :29; Status DC Info 1 each PRN DAILY PRN MC SEE COMMENTS Last administered on 03/03/17 13:30 ; Start 03/01/17 at 12:00 Sodium Chloride 90 meq/Potassium Chloride 50 meq/ Potassium Phosphate 13.6 mmol/ Magnesium Sulfate 10 meq/ Calcium Gluconate 10 meq/ Multivitamins 10 ml/Chromium / Copper/Manganese/ Seleni/Zn 1 ml/ Total Parenteral Nutrition/Amino Acids/ Dextrose/ Fat Emulsion Intravenous 1,512 ml @ 63 mls/hr TPN CONT IV Last administered on 03/01/17 22:38; Start 03/01/17 at 22:00; Stop 03/02/17 at 21 :59; Status DC Sucralfate (Carafate) 1 gm QIDPMEDS PO ; Start 03/02/17 at 10:00; Stop at 10:00; Status Cancel Ondansetron HCl (Zofran) 4 mg PRN Q6HRS PRN IV NAUSEA/VOMITING; Start at 10:00 Sodium Chloride 110 meq/Potassium Chloride 50 meq/ Potassium Phosphate 18 mmol/ Magnesium Sulfate 10 meq/Calcium Gluconate 10 meq/ Multivitamins 10 ml/Chromium / Copper/Manganese/ Seleni/Zn 1 ml/ Total Parenteral Nutrition/Amino Acids/ Dextrose/ Fat Emulsion Intravenous 1,512 ml @ 63 mls/hr TPN CONT IV Last administered on 03/02/17 22:36; Start 03/02/17 at 22:00; Stop 03/03/17 at 21 :59; Status DC Lidocaine HCl (Glydo (Lidocaine) Jelly) 1 jigar 1X ONCE MM Last administered on 03/02/17 14:10; Start 03/02/17 at 13:30; Stop 03/02/17 at 13:34; Status DC Benzocaine (Hurricaine One) 1 spray 1X ONCE MM Last administered on 15:35; Start 03/02/17 at 13:30; Stop 03/02/17 at 13:34; Status DC Throat Lozenges (Chloraseptic) 1 spray PRN Q2HR PRN PO SORE THROAT; Start at 14:30 Throat Lozenges (Cepacol Sore Throat Lozenge) 1 lana PRN Q2HRS PRN PO SORE THROAT; Start 03/02/17 at 14:30 Enoxaparin Sodium (Lovenox 100mg Syringe) 70 mg Q12HR SQ Last administered on 03/04/17 08:46; Start 03/03/17 at 11:00 Labetalol HCl (Normodyne) 20 mg PRN Q2HR PRN IVP HYPERTENSION, SEE COMMENTS; Start 03/03/17 at 10:15 Nitroglycerin (Nitro-Dur 0.1mg) 1 patch DAILY TD Last administered on 08:48; Start 03/03/17 at 11:00 Sodium Chloride 130 meq/Potassium Chloride 50 meq/ Potassium Phosphate 18 mmol/ Magnesium Sulfate 10 meq/Calcium Gluconate 10 meq/ Multivitamins 10 ml/Chromium / Copper/Manganese/ Seleni/Zn 1 ml/ Total Parenteral Nutrition/Amino Acids/ Dextrose/ Fat Emulsion Intravenous 1,512 ml @ 63 mls/hr TPN CONT IV Last administered on 03/03/17 22:54; Start 03/03/17 at 22:00; Stop 03/04/17 at 21 :59 Digoxin (Lanoxin) 125 mcg 1X ONCE IV Last administered on 03/04/17 04:03; Start 03/04/17 at 04:00; Stop 03/04/17 at 04:01; Status DC Sodium Chloride 1,000 ml @ 100 mls/hr Q10H IV Last administered on 03/04/17 04:03; Start 03/04/17 at 04:00; Stop 03/04/17 at 13:59 Digoxin (Lanoxin) 250 mcg 1X ONCE IV Last administered on 03/04/17 05:20; Start 03/04/17 at 05:15; Stop 03/04/17 at 05:17; Status DC Metoprolol Tartrate (Lopressor Vial) 2.5 mg Q6HRS IVP ; Start 03/04/17 at 11:00 Active Scripts Active Reported Miralax (Polyethylene Glycol 3350) 17 Gm Powd.pack 1 Pkt PO DAILY PRN Fish Oil 1,000 mg Softgel ([place]-3/Dha/Epa/Fish Oil) 1,000 Mg Capsule 1,000 Mg PO DAILY Vitamin D3 (Cholecalciferol (Vitamin D3)) 1,000 Unit Tablet 1 Tab PO DAILY Multivitamins (Multivitamin) 1 Each Tablet 1 Tab PO DAILY Eliquis (Apixaban) 5 Mg Tablet 5 Mg PO BID Sucralfate 1 Gm Tablet 1 Gm PO QID Sotalol Af (Sotalol Hcl) 80 Mg Tablet 80 Mg PO BID Dronabinol 2.5 Mg Capsule 2.5 Mg PO BID Hydrochlorothiazide Tablet (Hydrochlorothiazide) 25 Mg Tablet 25 Mg PO DAILY Omeprazole 40 Mg Capsule.dr 1 Cap PO DAILY Gave this morning Take in am Vitals/I & O Vital Sign - Last 24 Hours 03/03/17 03/03/17 03/03/17 03/03/17 15:00 19:00 20:15 23:00 Temp 98.4 97.9 97.7 98.4 97.9 97.7 Pulse 94 96 95 Resp 20 18 18 B/P (MAP) 130/75 (93) 126/72 (90) 104/62 (76) Pulse Ox 97 98 94 O2 Delivery Room Air Room Air Room Air Room Air 03/04/17 03/04/17 03/04/17 03/04/17 04:03 04:29 05:00 05:20 Temp 98.1 98.1 Pulse 95 164 157 Resp 14 B/P (MAP) 86/62 113/74 (87) 113/74 Pulse Ox 96 O2 Delivery Room Air Room Air 03/04/17 03/04/17 03/04/17 07:00 08:00 11:00 Temp 98.5 97.8 98.5 97.8 Pulse 94 104 Resp 19 18 B/P (MAP) 120/71 (87) 121/69 (86) Pulse Ox 96 97 O2 Delivery Room Air Room Air Room Air Intake and Output 03/03/17 03/03/17 03/04/17 15:00 23:00 07:00 Intake Total 0 ml Output Total 30 ml 20 ml Balance -30 ml -20 ml 0 ml Nutrition Consultation Dietary Evaluation: Recommendations by RD: PPN/TPN Comments: TPN: 195 g dextrose, 60 g AA, 20 g lipid Expected Outcomes/Goals: to meet > 60% est nutrition needs via TPN Interpretation of weight loss: >10% in 6 months Malnutrition Findings: Body Fat Depletion (Non Severe: Mild Depletion Weight Status: Appropriate GEENA VELEZ MD Mar 04, 2017 11:31
--- NOTE | 2017-03-04 12:01 | PDOC ---
SURGICAL PROGRESS NOTE Subjective Pt reports no abd pain, notes abd distention and pressure, denies flatus and stool Vital Signs Vital Signs Date Time Temp Pulse Resp B/P (MAP) Pulse Ox O2 Delivery O2 Flow Rate FiO2 03/04/17 11:00 97.8 104 18 121/69 (86) 97 Room Air 97.8 General: Alert, Oriented X3, Cooperative, No acute distress Abdomen: Soft, No tenderness, Other (distended, NGT with bilious output) Labs Laboratory Tests Test 03/02/17 14:00 03/02/17 16:53 03/03/17 04:15 03/03/17 06:10 Urine Color Dilcia Urine Clarity Cloudy Urine pH 6.0 Urine Specific [place] 1.025 Urine Protein 30 mg/dL (NEG-TRACE) Urine Glucose (UA) Negative mg/dL (NEG) Urine Ketones (Stick) 15 mg/dL (NEG) Urine Blood Negative (NEG) Urine Nitrite Negative (NEG) Urine Bilirubin Small (NEG) Urine Urobilinogen Dipstick 1.0 mg/dL (0.2 mg/dL) Urine Leukocyte Esterase Moderate (NEG) Urine RBC 0 /HPF (0-2) Urine WBC 5-10 /HPF (0-4) Urine Squamous Epithelial Cells Occ /LPF Urine Bacteria Moderate /HPF (0-FEW) Urine Mucus Mod /LPF Glucose (Fingerstick) 150 mg/dL (70-99) 155 mg/dL (70-99) White Blood Count 9.1 x10^3/uL (4.0-11.0) Red Blood Count 3.86 x10^6/uL (3.50-5.40) Hemoglobin 11.6 g/dL (12.0-15.5) Hematocrit 34.1 % (36.0-47.0) Mean Corpuscular Volume 89 fL (79-100) Mean Corpuscular Hemoglobin 30 pg (25-35) Mean Corpuscular Hemoglobin Concent 34 g/dL (31-37) Red Cell Distribution Width 14.9 % (11.5-14.5) Platelet Count 296 x10^3/uL (140-400) Sodium Level 132 mmol/L (136-145) Potassium Level 3.9 mmol/L (3.5-5.1) Chloride Level 99 mmol/L (98-107) Carbon Dioxide Level 32 mmol/L (21-32) Anion Gap 1 (6-14) Blood Urea Nitrogen 17 mg/dL (7-20) Creatinine 0.5 mg/dL (0.6-1.0) Estimated GFR (Cockcroft-Gault) 142.6 Glucose Level 151 mg/dL (70-99) Calcium Level 8.5 mg/dL (8.5-10.1) Phosphorus Level 2.2 mg/dL (2.6-4.7) Magnesium Level 1.9 mg/dL (1.8-2.4) Test 03/03/17 12:40 03/04/17 01:53 03/04/17 06:27 03/04/17 07:40 Glucose (Fingerstick) 156 mg/dL (70-99) 152 mg/dL (70-99) 147 mg/dL (70-99) White Blood Count 9.1 x10^3/uL (4.0-11.0) Red Blood Count 3.76 x10^6/uL (3.50-5.40) Hemoglobin 11.2 g/dL (12.0-15.5) Hematocrit 33.7 % (36.0-47.0) Mean Corpuscular Volume 90 fL (79-100) Mean Corpuscular Hemoglobin 30 pg (25-35) Mean Corpuscular Hemoglobin Concent 33 g/dL (31-37) Red Cell Distribution Width 14.8 % (11.5-14.5) Platelet Count 203 x10^3/uL (140-400) Sodium Level 136 mmol/L (136-145) Potassium Level 4.1 mmol/L (3.5-5.1) Chloride Level 102 mmol/L (98-107) Carbon Dioxide Level 27 mmol/L (21-32) Anion Gap 7 (6-14) Blood Urea Nitrogen 17 mg/dL (7-20) Creatinine 0.4 mg/dL (0.6-1.0) Estimated GFR (Cockcroft-Gault) 184.4 BUN/Creatinine Ratio 43 (6-20) Glucose Level 138 mg/dL (70-99) Calcium Level 8.6 mg/dL (8.5-10.1) Phosphorus Level 2.6 mg/dL (2.6-4.7) Magnesium Level 2.0 mg/dL (1.8-2.4) Total Bilirubin 0.5 mg/dL (0.2-1.0) Aspartate Amino Transf (AST/SGOT) 25 U/L (15-37) Alanine Aminotransferase (ALT/SGPT) 14 U/L (14-59) Alkaline Phosphatase 83 U/L (46-116) Total Protein 6.1 g/dL (6.4-8.2) Albumin 2.0 g/dL (3.4-5.0) Albumin/Globulin Ratio 0.5 (1.0-1.7) Test 03/04/17 11:30 Glucose (Fingerstick) 150 mg/dL (70-99) Laboratory Tests Test 03/03/17 12:40 03/04/17 01:53 03/04/17 06:27 03/04/17 07:40 Glucose (Fingerstick) 156 mg/dL (70-99) 152 mg/dL (70-99) 147 mg/dL (70-99) White Blood Count 9.1 x10^3/uL (4.0-11.0) Red Blood Count 3.76 x10^6/uL (3.50-5.40) Hemoglobin 11.2 g/dL (12.0-15.5) Hematocrit 33.7 % (36.0-47.0) Mean Corpuscular Volume 90 fL (79-100) Mean Corpuscular Hemoglobin 30 pg (25-35) Mean Corpuscular Hemoglobin Concent 33 g/dL (31-37) Red Cell Distribution Width 14.8 % (11.5-14.5) Platelet Count 203 x10^3/uL (140-400) Sodium Level 136 mmol/L (136-145) Potassium Level 4.1 mmol/L (3.5-5.1) Chloride Level 102 mmol/L (98-107) Carbon Dioxide Level 27 mmol/L (21-32) Anion Gap 7 (6-14) Blood Urea Nitrogen 17 mg/dL (7-20) Creatinine 0.4 mg/dL (0.6-1.0) Estimated GFR (Cockcroft-Gault) 184.4 BUN/Creatinine Ratio 43 (6-20) Glucose Level 138 mg/dL (70-99) Calcium Level 8.6 mg/dL (8.5-10.1) Phosphorus Level 2.6 mg/dL (2.6-4.7) Magnesium Level 2.0 mg/dL (1.8-2.4) Total Bilirubin 0.5 mg/dL (0.2-1.0) Aspartate Amino Transf (AST/SGOT) 25 U/L (15-37) Alanine Aminotransferase (ALT/SGPT) 14 U/L (14-59) Alkaline Phosphatase 83 U/L (46-116) Total Protein 6.1 g/dL (6.4-8.2) Albumin 2.0 g/dL (3.4-5.0) Albumin/Globulin Ratio 0.5 (1.0-1.7) Test 03/04/17 11:30 Glucose (Fingerstick) 150 mg/dL (70-99) I have reviewed the following KUB c/w SBO, stable Problem List Problems Medical Problems: (1) Hypokalemia Status: Acute (2) Hyponatremia Status: Acute Assessment/Plan d/w pt and pt's daughter pt without significant improvement in SBO, suspect secondary to aggressive metastatic colon cancer given current cardiac issues, pt not currently surgical candidate. In addition , pt poor surgical candidate secondary to metastatic disease and severe malnutrition pt's daughter asks about palliative care, which is appropriate, will order cont NGT and TPN, cardiac eval Problems: ORLANDO NOVOA MD Mar 04, 2017 12:01
[2017-03-04] MEDS: TPN PER PHARMACY MC PRN (12:27)
[2017-03-04 14:59] VITALS: BP 140/67
--- NOTE | 2017-03-04 16:35 | RAD ---
Portable abdomen, 03/04/2017, 4:24 PM History: Check NG tube placement Comparison is made to a study of earlier the same day. An NG tube is in place extending into the region of the distal stomach. There is evidence of a small hiatal hernia. There is unchanged gaseous distention of multiple small bowel loops. Little if any colonic gas is seen. The findings suggest ongoing small bowel obstruction. IMPRESSION: The NG tube extends into the distal body of the stomach.
[2017-03-04] MEDS ORDERED: METO-269 PO (16:38)
[2017-03-04] MEDS ORDERED: POTA20TA82 PO (16:38)
[2017-03-04] MEDS ORDERED: LISI2.5T PO (16:38)
[2017-03-04] MEDS ORDERED: FURO-68 PO (16:38)
[2017-03-04] MEDS ORDERED: CRESTOR40 MG PO (16:38)
[2017-03-04 19:27] VITALS: BP 131/78
[2017-03-04] MEDS ORDERED: DEXTROSE 70% IV SCH ×10 (22:00)
[2017-03-04] MEDS ORDERED: AMINO ACIDS IV SCH ×10 (22:00)
[2017-03-04] MEDS ORDERED: TOTAL PARENTERAL NUTRITION IV SCH ×10 (22:00)
[2017-03-04] MEDS ORDERED: [UNRECOGNIZED DRUG - OTHER] IV SCH ×10 (22:00)
[2017-03-04 23:51] VITALS: BP 130/74
[2017-03-05 03:39] VITALS: BP 125/73
[2017-03-05] MEDS: METOPROLOL TARTRATE 5 MG/5 ML VIAL. IVP SCH ×3 (06:07→17:52)
[2017-03-05 07:00] VITALS: BP 147/65
[2017-03-05] MEDS ORDERED: BENZOCAINE ONE 20% MUCOSAL SPRAY. MM (07:00)
[2017-03-05] MEDS ORDERED: LIDOCAINE 2% JELLY 6ML IN APPLICATOR. MM ONE (07:00)
[2017-03-05] MEDS: PANTOPRAZOLE IV PUSH 40 MG VIAL. IVP SCH (07:55)
[2017-03-05 08:01] LABS: HEMATOCRIT 34.4 % (36.0-47.0); HEMOGLOBIN 11.5 g/dL (12.0-15.5); RED BLOOD COUNT 3.86 x10^6/uL (3.50-5.40); WHITE BLOOD COUNT 9.4 x10^3/uL (4.0-11.0)
[2017-03-05 08:08] LABS: CALCIUM 8.7 mg/dL (8.5-10.1); CREATININE 0.5 mg/dL (0.6-1.0); GFR 142.6; POTASSIUM 4.6 mmol/L (3.5-5.1)
--- NOTE | 2017-03-05 08:18 | PDOC ---
SURGICAL PROGRESS NOTE Subjective Pt had NGT taken out last night, unable to be replaced, c/o N/V and abd bloating , no flatus or stool Vital Signs Vital Signs Date Time Temp Pulse Resp B/P (MAP) Pulse Ox O2 Delivery O2 Flow Rate FiO2 03/05/17 07:00 97.5 97 16 147/65 (92) 97 Room Air 97.5 I&O Intake and Output 03/05/17 06:59 Intake Total 1435 ml Output Total 300 ml Balance 1135 ml Intake Oral 0 ml IV Total 1435 ml Output Urine Total 200 ml Emesis 100 ml # Voids 3 General: Alert, Oriented X3, Cooperative, No acute distress Abdomen: Soft, Other (distended, NTTP) Labs Laboratory Tests Test 03/03/17 12:40 03/04/17 01:53 03/04/17 06:27 03/04/17 07:40 Glucose (Fingerstick) 156 mg/dL (70-99) 152 mg/dL (70-99) 147 mg/dL (70-99) White Blood Count 9.1 x10^3/uL (4.0-11.0) Red Blood Count 3.76 x10^6/uL (3.50-5.40) Hemoglobin 11.2 g/dL (12.0-15.5) Hematocrit 33.7 % (36.0-47.0) Mean Corpuscular Volume 90 fL (79-100) Mean Corpuscular Hemoglobin 30 pg (25-35) Mean Corpuscular Hemoglobin Concent 33 g/dL (31-37) Red Cell Distribution Width 14.8 % (11.5-14.5) Platelet Count 203 x10^3/uL (140-400) Sodium Level 136 mmol/L (136-145) Potassium Level 4.1 mmol/L (3.5-5.1) Chloride Level 102 mmol/L (98-107) Carbon Dioxide Level 27 mmol/L (21-32) Anion Gap 7 (6-14) Blood Urea Nitrogen 17 mg/dL (7-20) Creatinine 0.4 mg/dL (0.6-1.0) Estimated GFR (Cockcroft-Gault) 184.4 BUN/Creatinine Ratio 43 (6-20) Glucose Level 138 mg/dL (70-99) Calcium Level 8.6 mg/dL (8.5-10.1) Phosphorus Level 2.6 mg/dL (2.6-4.7) Magnesium Level 2.0 mg/dL (1.8-2.4) Total Bilirubin 0.5 mg/dL (0.2-1.0) Aspartate Amino Transf (AST/SGOT) 25 U/L (15-37) Alanine Aminotransferase (ALT/SGPT) 14 U/L (14-59) Alkaline Phosphatase 83 U/L (46-116) Total Protein 6.1 g/dL (6.4-8.2) Albumin 2.0 g/dL (3.4-5.0) Albumin/Globulin Ratio 0.5 (1.0-1.7) Test 03/04/17 11:30 03/04/17 16:48 03/05/17 06:32 03/05/17 07:50 Glucose (Fingerstick) 150 mg/dL (70-99) 153 mg/dL (70-99) 140 mg/dL (70-99) White Blood Count 9.4 x10^3/uL (4.0-11.0) Red Blood Count 3.86 x10^6/uL (3.50-5.40) Hemoglobin 11.5 g/dL (12.0-15.5) Hematocrit 34.4 % (36.0-47.0) Mean Corpuscular Volume 89 fL (79-100) Mean Corpuscular Hemoglobin 30 pg (25-35) Mean Corpuscular Hemoglobin Concent 34 g/dL (31-37) Red Cell Distribution Width 15.0 % (11.5-14.5) Platelet Count 299 x10^3/uL (140-400) Sodium Level 137 mmol/L (136-145) Potassium Level 4.6 mmol/L (3.5-5.1) Chloride Level 103 mmol/L (98-107) Carbon Dioxide Level 26 mmol/L (21-32) Anion Gap 8 (6-14) Blood Urea Nitrogen 18 mg/dL (7-20) Creatinine 0.5 mg/dL (0.6-1.0) Estimated GFR (Cockcroft-Gault) 142.6 Glucose Level 125 mg/dL (70-99) Calcium Level 8.7 mg/dL (8.5-10.1) Laboratory Tests Test 03/04/17 11:30 03/04/17 16:48 03/05/17 06:32 03/05/17 07:50 Glucose (Fingerstick) 150 mg/dL (70-99) 153 mg/dL (70-99) 140 mg/dL (70-99) White Blood Count 9.4 x10^3/uL (4.0-11.0) Red Blood Count 3.86 x10^6/uL (3.50-5.40) Hemoglobin 11.5 g/dL (12.0-15.5) Hematocrit 34.4 % (36.0-47.0) Mean Corpuscular Volume 89 fL (79-100) Mean Corpuscular Hemoglobin 30 pg (25-35) Mean Corpuscular Hemoglobin Concent 34 g/dL (31-37) Red Cell Distribution Width 15.0 % (11.5-14.5) Platelet Count 299 x10^3/uL (140-400) Sodium Level 137 mmol/L (136-145) Potassium Level 4.6 mmol/L (3.5-5.1) Chloride Level 103 mmol/L (98-107) Carbon Dioxide Level 26 mmol/L (21-32) Anion Gap 8 (6-14) Blood Urea Nitrogen 18 mg/dL (7-20) Creatinine 0.5 mg/dL (0.6-1.0) Estimated GFR (Cockcroft-Gault) 142.6 Glucose Level 125 mg/dL (70-99) Calcium Level 8.7 mg/dL (8.5-10.1) I have reviewed the following KUB c/w SBO Problem List Problems Medical Problems: (1) Hypokalemia Status: Acute (2) Hyponatremia Status: Acute Assessment/Plan d/w Dr. Morris and Dr. Henson yesterday will await palliative care meeting and family planning options would be comfort care or palliative surgical intervention pt would like to avoid NGT currently Problems: ORLANDO NOVOA MD Mar 05, 2017 08:18
--- NOTE | 2017-03-05 08:36 | RAD ---
Single view of the abdomen 03/05/2017 Indication: Small bowel obstruction Comparison study: Abdominal radiograph March 04, 2017 Discussion: Multiple dilated loops of small bowel persist in the central abdomen consistent with ongoing small bowel obstruction. Nasogastric tube has been removed. No gross pneumoperitoneum is identified, though exam is limited for this purpose. No acute osseous changes are identified. Impression: Persistent dilated loops of small bowel central abdomen consistent with ongoing small bowel obstruction.
--- NOTE | 2017-03-05 09:37 | PDOC ---
SUBJECTIVE Subjective looks comfortable now, had N/V all night after NGT came out, still does not want tube, pt at peace with hospice care and comfort measures OBJECTIVE Vital Signs Vital Signs Date Time Temp Pulse Resp B/P (MAP) Pulse Ox O2 Delivery O2 Flow Rate FiO2 03/05/17 07:00 97.5 97 16 147/65 (92) 97 Room Air 97.5 03/05/17 06:07 103 125/73 03/05/17 03:39 97.7 97 17 125/73 (90) 95 Room Air 97.7 03/04/17 23:51 98.4 93 20 130/74 (92) 96 Room Air 98.4 03/04/17 23:48 95 131/78 03/04/17 20:00 Room Air 03/04/17 19:27 98.7 90 18 131/78 (95) 97 Room Air 98.7 03/04/17 18:10 99 140/67 03/04/17 14:59 98.6 99 18 140/67 (91) 96 Room Air 98.6 03/04/17 12:03 104 121/69 03/04/17 11:00 97.8 104 18 121/69 (86) 97 Room Air 97.8 I & O Intake and Output 03/05/17 07:00 Intake Total 1435 ml Output Total 300 ml Balance 1135 ml Intake Oral 0 ml IV Total 1435 ml Output Urine Total 200 ml Emesis 100 ml # Voids 3 PHYSICAL EXAM Physical Exam lungs decrease BS heart RRR abd distended , no BS ext trace edema ASSESSMENT/PLAN Assessment/Plan 1- small bowel obstruction on bowel rest, NGT is out not able to replace pt would like to avoid 2- SVT episode , better now 3-hx A Fib paroxysmal on anticoagulation 4- UTI start Zosyn per culture 5-Metastatic colon CA 6- Hx HTN now Bp on low side continue to monitor 7-Hx anemia iron deficiency 8- hypokalemia, hyponatremia replaced 9-malnourished and significant wt loss on TPN for now pt at peace with hospice care , want comfort measures, prefer not to go home , waiting for kids for final decision , possibly hospice house , plan to D/C TPN/ ABx and continue comfort care if discharged to hospice . Problems: COMMENT Lab Laboratory Tests Test 03/04/17 11:30 03/04/17 16:48 03/05/17 06:32 03/05/17 07:50 Glucose (Fingerstick) 150 mg/dL (70-99) 153 mg/dL (70-99) 140 mg/dL (70-99) White Blood Count 9.4 x10^3/uL (4.0-11.0) Red Blood Count 3.86 x10^6/uL (3.50-5.40) Hemoglobin 11.5 g/dL (12.0-15.5) Hematocrit 34.4 % (36.0-47.0) Mean Corpuscular Volume 89 fL (79-100) Mean Corpuscular Hemoglobin 30 pg (25-35) Mean Corpuscular Hemoglobin Concent 34 g/dL (31-37) Red Cell Distribution Width 15.0 % (11.5-14.5) Platelet Count 299 x10^3/uL (140-400) Sodium Level 137 mmol/L (136-145) Potassium Level 4.6 mmol/L (3.5-5.1) Chloride Level 103 mmol/L (98-107) Carbon Dioxide Level 26 mmol/L (21-32) Anion Gap 8 (6-14) Blood Urea Nitrogen 18 mg/dL (7-20) Creatinine 0.5 mg/dL (0.6-1.0) Estimated GFR (Cockcroft-Gault) 142.6 Glucose Level 125 mg/dL (70-99) Calcium Level 8.7 mg/dL (8.5-10.1) JUAN TINEO MD Mar 05, 2017 09:37
[2017-03-05 10:40] VITALS: BP 120/57
[2017-03-05] MEDS: PIPERACILLIN/TAZO IV Push 3.375 GM VIAL. IVP SCH ×2 (11:06→20:36)
--- NOTE | 2017-03-05 11:12 | CARD ---
APPROVED REPORT EXAM: Two-dimensional and M-mode echocardiogram with Doppler and color Doppler. Other Information Quality : Good Technically limited study due to body habitus. INDICATION SVT 2D DIMENSIONS Left Atrium(2D)2.8 (1.6-4.0cm)IVSd0.7 (0.7-1.1cm) Aortic Root(2D)2.7 (2.0-3.7cm)LVDd3.4 (3.9-5.9cm) LVOT Diameter2.0 (1.8-2.4cm)PWd0.9 (0.7-1.1cm) LVDs3.1 (2.5-4.0cm)FS (%) 30.0 % SV11.4 mlLVEF(%)60.0 (>50%) Aortic Valve AoV Peak Brennen.126.8cm/sAoV VTI21.1cm AO Peak GR.6.4mmHgLVOT VTI 21.31cm AO Mean GR.3mmHgAVA (VTI)3.10cm2 Mitral Valve MV E Hniogldm36.8cm/sMV DECEL HADM027ai MV A Lykwcbow831.0cm/sE/A Ratio0.7 TDI Lateral E' P. V8.15cm/sMedial E' P. V5.95cm/s E/Lateral E'9.5E/Medial E'13.1 Tricuspid Valve TR P. Potncpry593zl/sRAP BCIIIHUI3oqYx TR Peak Gr.59plDnSHGT71byPs Pulmonary Vein S1 Pkgkqyix33.9cm/sS2 Humsesvn93.50cm/s D2 Bjdojvrv71.5cm/s LEFT VENTRICLE The left ventricle is normal size. There is normal left ventricular wall thickness. The left ventricu lar systolic function is normal and the ejection fraction is within normal range. The Ejection Fracti on is 55%. Wall motion not able to be accurately assessed due to suboptimal images. Grossly normal. T ransmitral Doppler flow pattern is Grade I-abnormal relaxation pattern. RIGHT VENTRICLE The right ventricle is normal size. The right ventricular systolic function is normal. ATRIA The left atrium size is not well visualized. The right atrium size is normal. The interatrial septum is intact with no evidence for an atrial septal defect or patent foramen ovale as noted on 2-D or Dop pler imaging. AORTIC VALVE Not well visualized. Doppler and Color Flow revealed no significant aortic regurgitation. There is no significant aortic valvular stenosis. MITRAL VALVE Not well visualized. There is no evidence of mitral valve prolapse. There is no mitral valve stenosis . Doppler and Color-flow revealed trace mitral regurgitation. TRICUSPID VALVE The tricuspid valve is normal in structure and function. Doppler and Color Flow revealed trace tricus pid regurgitation. The PA pressure was estimated at 24 mmHg. There is no tricuspid valve stenosis. PULMONIC VALVE The pulmonary valve is not well visualized but appears to be functioning normally by Doppler interrog ation. Doppler and Color Flow revealed no pulmonic valvular regurgitation. There is no pulmonic valvu lar stenosis. GREAT VESSELS The aortic root is normal in size. The ascending aorta is normal in size. The IVC was not visualized. PERICARDIAL EFFUSION There is no evidence of significant pericardial effusion. Critical Notification Critical Value: No <Conclusion> The left ventricular systolic function is normal and the ejection fraction is within normal range. Th e Ejection Fraction is 55%. Wall motion not able to be accurately assessed due to suboptimal images. Grossly normal. Technically difficult study.
[2017-03-05] MEDS ORDERED: PIPERACILLIN/TAZOBACTAM 3.375 GM in IV DEXTROSE 5% 50 ML IV SCH (12:00)
--- NOTE | 2017-03-05 12:24 | PDOC ---
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 ROS - has n/v Objective Objective Vital Signs Date Time Temp Pulse Resp B/P (MAP) Pulse Ox O2 Delivery O2 Flow Rate FiO2 03/05/17 12:12 105 03/05/17 10:40 98.4 16 120/57 (78) 96 Room Air 98.4 Intake and Output 03/05/17 07:00 Intake Total 1435 ml Output Total 300 ml Balance 1135 ml Intake Oral 0 ml IV Total 1435 ml Output Urine Total 200 ml Emesis 100 ml # Voids 3 Physical Exam Heart: Normal S1, Normal S2 General: Alert, Oriented X3 Lungs: Clear to auscultation Neuro: Normal speech Psych/Mental Status: Mental status NL Assessment Assessment Problems Medical Problems: (1) Hypokalemia Status: Acute (2) Hyponatremia Status: Acute IMPRESSION AND PLAN: 1. 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 I d/w DR Emerson and pt is not a candidate for palliative surgery or chemotherapy and pt agrees to pursue with comfort care and hospice. Consult palliative care. I d/w palliative care team. 2. Small bowel obstruction. I appreciate management by Dr. Zuleta. NGT suction in place 3. Anemia secondary to malignancy. Continue to monitor. Hb 11.5. Comment Review of Relevant I have reviewed the following items alisson (where applicable) has been applied. Labs Laboratory Tests Test 03/03/17 12:40 03/04/17 01:53 03/04/17 06:27 03/04/17 07:40 Glucose (Fingerstick) 156 mg/dL (70-99) 152 mg/dL (70-99) 147 mg/dL (70-99) White Blood Count 9.1 x10^3/uL (4.0-11.0) Red Blood Count 3.76 x10^6/uL (3.50-5.40) Hemoglobin 11.2 g/dL (12.0-15.5) Hematocrit 33.7 % (36.0-47.0) Mean Corpuscular Volume 90 fL (79-100) Mean Corpuscular Hemoglobin 30 pg (25-35) Mean Corpuscular Hemoglobin Concent 33 g/dL (31-37) Red Cell Distribution Width 14.8 % (11.5-14.5) Platelet Count 203 x10^3/uL (140-400) Sodium Level 136 mmol/L (136-145) Potassium Level 4.1 mmol/L (3.5-5.1) Chloride Level 102 mmol/L (98-107) Carbon Dioxide Level 27 mmol/L (21-32) Anion Gap 7 (6-14) Blood Urea Nitrogen 17 mg/dL (7-20) Creatinine 0.4 mg/dL (0.6-1.0) Estimated GFR (Cockcroft-Gault) 184.4 BUN/Creatinine Ratio 43 (6-20) Glucose Level 138 mg/dL (70-99) Calcium Level 8.6 mg/dL (8.5-10.1) Phosphorus Level 2.6 mg/dL (2.6-4.7) Magnesium Level 2.0 mg/dL (1.8-2.4) Total Bilirubin 0.5 mg/dL (0.2-1.0) Aspartate Amino Transf (AST/SGOT) 25 U/L (15-37) Alanine Aminotransferase (ALT/SGPT) 14 U/L (14-59) Alkaline Phosphatase 83 U/L (46-116) Total Protein 6.1 g/dL (6.4-8.2) Albumin 2.0 g/dL (3.4-5.0) Albumin/Globulin Ratio 0.5 (1.0-1.7) Test 03/04/17 11:30 03/04/17 16:48 03/05/17 06:32 03/05/17 07:50 Glucose (Fingerstick) 150 mg/dL (70-99) 153 mg/dL (70-99) 140 mg/dL (70-99) White Blood Count 9.4 x10^3/uL (4.0-11.0) Red Blood Count 3.86 x10^6/uL (3.50-5.40) Hemoglobin 11.5 g/dL (12.0-15.5) Hematocrit 34.4 % (36.0-47.0) Mean Corpuscular Volume 89 fL (79-100) Mean Corpuscular Hemoglobin 30 pg (25-35) Mean Corpuscular Hemoglobin Concent 34 g/dL (31-37) Red Cell Distribution Width 15.0 % (11.5-14.5) Platelet Count 299 x10^3/uL (140-400) Sodium Level 137 mmol/L (136-145) Potassium Level 4.6 mmol/L (3.5-5.1) Chloride Level 103 mmol/L (98-107) Carbon Dioxide Level 26 mmol/L (21-32) Anion Gap 8 (6-14) Blood Urea Nitrogen 18 mg/dL (7-20) Creatinine 0.5 mg/dL (0.6-1.0) Estimated GFR (Cockcroft-Gault) 142.6 Glucose Level 125 mg/dL (70-99) Calcium Level 8.7 mg/dL (8.5-10.1) Test 03/05/17 11:18 Glucose (Fingerstick) 115 mg/dL (70-99) Laboratory Tests Test 03/04/17 16:48 03/05/17 06:32 03/05/17 07:50 03/05/17 11:18 Glucose (Fingerstick) 153 mg/dL (70-99) 140 mg/dL (70-99) 115 mg/dL (70-99) White Blood Count 9.4 x10^3/uL (4.0-11.0) Red Blood Count 3.86 x10^6/uL (3.50-5.40) Hemoglobin 11.5 g/dL (12.0-15.5) Hematocrit 34.4 % (36.0-47.0) Mean Corpuscular Volume 89 fL (79-100) Mean Corpuscular Hemoglobin 30 pg (25-35) Mean Corpuscular Hemoglobin Concent 34 g/dL (31-37) Red Cell Distribution Width 15.0 % (11.5-14.5) Platelet Count 299 x10^3/uL (140-400) Sodium Level 137 mmol/L (136-145) Potassium Level 4.6 mmol/L (3.5-5.1) Chloride Level 103 mmol/L (98-107) Carbon Dioxide Level 26 mmol/L (21-32) Anion Gap 8 (6-14) Blood Urea Nitrogen 18 mg/dL (7-20) Creatinine 0.5 mg/dL (0.6-1.0) Estimated GFR (Cockcroft-Gault) 142.6 Glucose Level 125 mg/dL (70-99) Calcium Level 8.7 mg/dL (8.5-10.1) Microbiology 03/02/17 Urine Culture - Preliminary, Resulted 03/02/17 Urine Culture Result 1 (YOLANDA) - Preliminary, Resulted 03/02/17 Urine Culture Result 2 (YOLANDA) - Preliminary, Resulted Medications Current Medications Ondansetron HCl (Zofran) 4 mg 1X ONCE IV Last administered on 02/28/17 09:50 ; Start 02/28/17 at 09:30; Stop 02/28/17 at 09:31; Status DC Sodium Chloride 1,000 ml @ 1,000 mls/hr 1X ONCE IV Last administered on 02/28 13:34; Start 02/28/17 at 11:00; Stop 02/28/17 at 11:59; Status DC Ondansetron HCl (Zofran) 4 mg PRN Q8HRS PRN IV NAUSEA/VOMITING Last administered on 02/28/17 11:36; Start 02/28/17 at 10:45; Stop 03/01/17 at 10 :44; Status DC Morphine Sulfate 2 mg PRN Q2HR PRN IV PAIN Last administered on 02/28/17 11: 38; Start 02/28/17 at 10:45; Stop 03/01/17 at 10:44; Status DC Potassium Chloride (Klor-Con) 40 meq 1X ONCE PO Last administered on 16:17; Start 02/28/17 at 11:00; Stop 02/28/17 at 11:01; Status DC Potassium Chloride/Dextrose/ Sod Cl 1,000 ml @ 50 mls/hr Q20H IV Last administered on 03/01/17 09:05; Start 02/28/17 at 13:00 Magnesium Sulfate/ Dextrose 100 ml @ 25 mls/hr 1X ONCE IV Last administered on 02/28/17 14:36; Start 02/28/17 at 13:00; Stop 02/28/17 at 16:59; Status DC Pantoprazole Sodium (Protonix Vial) 40 mg DAILYAC IVP Last administered on 07:55; Start 02/28/17 at 13:00 Potassium Chloride 40 meq/ Dextrose 1,020 ml @ 75 mls/hr 1X ONCE IV ; Start 03/01/17 at 10:00; Stop 03/01/17 at 23:35; Status UNV Potassium Chloride 10 meq/ Sodium Chloride 105 ml @ 210 mls/hr Q1HR IV Last administered on 03/01/17 13:50; Start 03/01/17 at 11:00; Stop 03/01/17 at 14 :29; Status DC Info 1 each PRN DAILY PRN MC SEE COMMENTS Last administered on 03/04/17 12:27 ; Start 03/01/17 at 12:00 Sodium Chloride 90 meq/Potassium Chloride 50 meq/ Potassium Phosphate 13.6 mmol/ Magnesium Sulfate 10 meq/ Calcium Gluconate 10 meq/ Multivitamins 10 ml/Chromium / Copper/Manganese/ Seleni/Zn 1 ml/ Total Parenteral Nutrition/Amino Acids/ Dextrose/ Fat Emulsion Intravenous 1,512 ml @ 63 mls/hr TPN CONT IV Last administered on 03/01/17 22:38; Start 03/01/17 at 22:00; Stop 03/02/17 at 21 :59; Status DC Sucralfate (Carafate) 1 gm QIDPMEDS PO ; Start 03/02/17 at 10:00; Stop at 10:00; Status Cancel Ondansetron HCl (Zofran) 4 mg PRN Q6HRS PRN IV NAUSEA/VOMITING; Start at 10:00 Sodium Chloride 110 meq/Potassium Chloride 50 meq/ Potassium Phosphate 18 mmol/ Magnesium Sulfate 10 meq/Calcium Gluconate 10 meq/ Multivitamins 10 ml/Chromium / Copper/Manganese/ Seleni/Zn 1 ml/ Total Parenteral Nutrition/Amino Acids/ Dextrose/ Fat Emulsion Intravenous 1,512 ml @ 63 mls/hr TPN CONT IV Last administered on 03/02/17 22:36; Start 03/02/17 at 22:00; Stop 03/03/17 at 21 :59; Status DC Lidocaine HCl (Glydo (Lidocaine) Jelly) 1 jigar 1X ONCE MM Last administered on 03/02/17 14:10; Start 03/02/17 at 13:30; Stop 03/02/17 at 13:34; Status DC Benzocaine (Hurricaine One) 1 spray 1X ONCE MM Last administered on 15:35; Start 03/02/17 at 13:30; Stop 03/02/17 at 13:34; Status DC Throat Lozenges (Chloraseptic) 1 spray PRN Q2HR PRN PO SORE THROAT; Start at 14:30 Throat Lozenges (Cepacol Sore Throat Lozenge) 1 lana PRN Q2HRS PRN PO SORE THROAT; Start 03/02/17 at 14:30 Enoxaparin Sodium (Lovenox 100mg Syringe) 70 mg Q12HR SQ Last administered on 03/05/17 07:54; Start 03/03/17 at 11:00 Labetalol HCl (Normodyne) 20 mg PRN Q2HR PRN IVP HYPERTENSION, SEE COMMENTS; Start 03/03/17 at 10:15 Nitroglycerin (Nitro-Dur 0.1mg) 1 patch DAILY TD Last administered on 08:48; Start 03/03/17 at 11:00; Stop 03/04/17 at 11:42; Status DC Sodium Chloride 130 meq/Potassium Chloride 50 meq/ Potassium Phosphate 18 mmol/ Magnesium Sulfate 10 meq/Calcium Gluconate 10 meq/ Multivitamins 10 ml/Chromium / Copper/Manganese/ Seleni/Zn 1 ml/ Total Parenteral Nutrition/Amino Acids/ Dextrose/ Fat Emulsion Intravenous 1,512 ml @ 63 mls/hr TPN CONT IV Last administered on 03/03/17 22:54; Start 03/03/17 at 22:00; Stop 03/04/17 at 21 :59; Status DC Digoxin (Lanoxin) 125 mcg 1X ONCE IV Last administered on 03/04/17 04:03; Start 03/04/17 at 04:00; Stop 03/04/17 at 04:01; Status DC Sodium Chloride 1,000 ml @ 100 mls/hr Q10H IV Last administered on 03/04/17 04:03; Start 03/04/17 at 04:00; Stop 03/04/17 at 13:59; Status DC Digoxin (Lanoxin) 250 mcg 1X ONCE IV Last administered on 03/04/17 05:20; Start 03/04/17 at 05:15; Stop 03/04/17 at 05:17; Status DC Metoprolol Tartrate (Lopressor Vial) 2.5 mg Q6HRS IVP Last administered on 12:12; Start 03/04/17 at 11:00 Sodium Chloride 130 meq/Potassium Chloride 50 meq/ Potassium Phosphate 18 mmol/ Magnesium Sulfate 10 meq/Calcium Gluconate 10 meq/ Multivitamins 10 ml/Chromium / Copper/Manganese/ Seleni/Zn 1 ml/ Total Parenteral Nutrition/Amino Acids/ Dextrose/ Fat Emulsion Intravenous 1,512 ml @ 63 mls/hr TPN CONT IV Last administered on 03/04/17 22:12; Start 03/04/17 at 22:00; Stop 03/05/17 at 21 :59 Lidocaine HCl (Glydo (Lidocaine) Jelly) 1 jigar 1X ONCE MM ; Start 03/05/17 at 07:00; Stop 03/05/17 at 07:01; Status DC Benzocaine (Hurricaine One) 1 spray 1X ONCE MM ; Start 03/05/17 at 07:00; Stop 03/05/17 at 07:01; Status DC Piperacillin Sod/ Tazobactam Sod 3.375 gm/Dextrose 50 ml @ 100 mls/hr Q6HRS IV ; Start 03/05/17 at 12:00; Stop 03/05/17 at 12:00; Status DC Piperacillin Sod/ Tazobactam Sod (Zosyn) 3.375 gm Q6HRS IVP Last administered on 03/05/17 11:06; Start 03/05/17 at 10:00 Active Scripts Active Reported Toprol Xl (Metoprolol Succinate) 50 Mg Tab.er.24h 1 Tab PO DAILY Lasix (Furosemide) 40 Mg Tablet 1 Tab PO DAILY Lisinopril 2.5 Mg Tablet 1 Tab PO DAILY Potassium Chloride 20 Meq Tablet.er 20 Meq PO DAILY Crestor (Rosuvastatin Calcium) 40 Mg Tablet 1 Tab PO DAILY Miralax (Polyethylene Glycol 3350) 17 Gm Powd.pack 1 Pkt PO DAILY PRN Fish Oil 1,000 mg Softgel ([place]-3/Dha/Epa/Fish Oil) 1,000 Mg Capsule 1,000 Mg PO DAILY Vitamin D3 (Cholecalciferol (Vitamin D3)) 1,000 Unit Tablet 1 Tab PO DAILY Multivitamins (Multivitamin) 1 Each Tablet 1 Tab PO DAILY Eliquis (Apixaban) 5 Mg Tablet 5 Mg PO BID Sucralfate 1 Gm Tablet 1 Gm PO QID Sotalol Af (Sotalol Hcl) 80 Mg Tablet 80 Mg PO BID Dronabinol 2.5 Mg Capsule 2.5 Mg PO BID Hydrochlorothiazide Tablet (Hydrochlorothiazide) 25 Mg Tablet 25 Mg PO DAILY Omeprazole 40 Mg Capsule.dr 1 Cap PO DAILY Gave this morning Take in am Vitals/I & O Vital Sign - Last 24 Hours 03/04/17 03/04/17 03/04/17 03/04/17 14:59 18:10 19:27 20:00 Temp 98.6 98.7 98.6 98.7 Pulse 99 99 90 Resp 18 18 B/P (MAP) 140/67 (91) 140/67 131/78 (95) Pulse Ox 96 97 O2 Delivery Room Air Room Air Room Air 03/04/17 03/04/17 03/05/17 03/05/17 23:48 23:51 03:39 06:07 Temp 98.4 97.7 98.4 97.7 Pulse 95 93 97 103 Resp 20 17 B/P (MAP) 131/78 130/74 (92) 125/73 (90) 125/73 Pulse Ox 96 95 O2 Delivery Room Air Room Air 03/05/17 03/05/17 03/05/17 03/05/17 07:00 08:00 10:40 12:12 Temp 97.5 98.4 97.5 98.4 Pulse 97 100 105 Resp 16 B/P (MAP) 147/65 (92) 120/57 (78) Pulse Ox 97 96 O2 Delivery Room Air Room Air Room Air Intake and Output 03/04/17 03/04/17 03/05/17 15:00 23:00 07:00 Intake Total 0 ml 1435 ml Output Total 300 ml Balance 0 ml 1135 ml Nutrition Consultation Dietary Evaluation: Recommendations by RD: PPN/TPN Comments: TPN: 225 g dextrose, 60 g AA, 30 g lipid Expected Outcomes/Goals: to meet > 70% est nutrition needs via TPN Interpretation of weight loss: >10% in 6 months Malnutrition Findings: Body Fat Depletion (Non Severe: Mild Depletion Weight Status: Appropriate GEENA VELEZ MD Mar 05, 2017 12:24
[2017-03-05] MEDS: TPN PER PHARMACY MC PRN (12:49)
--- NOTE | 2017-03-05 13:40 | PDOC ---
CARDIO Progress Notes Date and Time Date of Service 03/05/2017 Time of Evaluation 1140 Subjective Subjective: No Chest Pain, No shortness of breath, No Palpitations Vitals Vitals Vital Signs Date Time Temp Pulse Resp B/P (MAP) Pulse Ox O2 Delivery O2 Flow Rate FiO2 03/05/17 12:12 105 03/05/17 10:40 98.4 16 120/57 (78) 96 Room Air 98.4 Weight Weight [ ] Input and Output Intake and Output Intake and Output 03/05/17 07:00 Intake Total 1435 ml Output Total 300 ml Balance 1135 ml Intake Oral 0 ml IV Total 1435 ml Output Urine Total 200 ml Emesis 100 ml # Voids 3 Laboratory Labs Laboratory Tests Test 03/04/17 16:48 03/05/17 06:32 03/05/17 07:50 03/05/17 11:18 Glucose (Fingerstick) 153 mg/dL (70-99) 140 mg/dL (70-99) 115 mg/dL (70-99) White Blood Count 9.4 x10^3/uL (4.0-11.0) Red Blood Count 3.86 x10^6/uL (3.50-5.40) Hemoglobin 11.5 g/dL (12.0-15.5) Hematocrit 34.4 % (36.0-47.0) Mean Corpuscular Volume 89 fL (79-100) Mean Corpuscular Hemoglobin 30 pg (25-35) Mean Corpuscular Hemoglobin Concent 34 g/dL (31-37) Red Cell Distribution Width 15.0 % (11.5-14.5) Platelet Count 299 x10^3/uL (140-400) Sodium Level 137 mmol/L (136-145) Potassium Level 4.6 mmol/L (3.5-5.1) Chloride Level 103 mmol/L (98-107) Carbon Dioxide Level 26 mmol/L (21-32) Anion Gap 8 (6-14) Blood Urea Nitrogen 18 mg/dL (7-20) Creatinine 0.5 mg/dL (0.6-1.0) Estimated GFR (Cockcroft-Gault) 142.6 Glucose Level 125 mg/dL (70-99) Calcium Level 8.7 mg/dL (8.5-10.1) Microbiology Micro Microbiology 03/02/17 Urine Culture - Preliminary, Resulted 03/02/17 Urine Culture Result 1 (YOLANDA) - Preliminary, Resulted 03/02/17 Urine Culture Result 2 (YOLANDA) - Preliminary, Resulted Physical Exam HEENT: Neck Supple W Full Motion Chest: Symmetric LUNGS: Other (faqint basilar crackles) Heart: S1S2, RRR (SR with periods of SVTs) Abdomen: Soft N/T, Other (NGT in place) Neurology: alert, oriented, follow commands Assessment Assessment 1. SBO 2. Colon CA with liver metastasis: stage 4 per hemonc 3. PSVT: Still has bouts of SVT. Maintaining SR. Likely reactive to lyte imbalance/dehydration/SBO. EF and LV systolic function normal. 4. Hx of PAFIB 5. Dehydration/protein malnutrition Recommendations 1. TPN ongoing 2. Increase lopressor IV. If remains to have episode of SVT then daily low IV digoxin could be added. 3. Pt transitioning to hospice. Will sign off. VIOLA LOZANO APRN Mar 05, 2017 13:40
[2017-03-05 14:31] VITALS: BP 119/59
[2017-03-05] MEDS: POTASSIUM CL 20MEQ D5-0.45NACL 1,000 ML IV SCH (18:18)
[2017-03-05 19:30] VITALS: BP 124/60
[2017-03-05] MEDS ORDERED: AMINO ACIDS IV SCH ×10 (22:00)
[2017-03-05] MEDS ORDERED: TOTAL PARENTERAL NUTRITION IV SCH ×10 (22:00)
[2017-03-05] MEDS ORDERED: [UNRECOGNIZED DRUG - OTHER] IV SCH ×10 (22:00)
[2017-03-05] MEDS ORDERED: DEXTROSE 70% IV SCH ×10 (22:00)
[2017-03-05 23:22] VITALS: BP 126/84
[2017-03-06] MEDS: METOPROLOL TARTRATE 5 MG/5 ML VIAL. IVP SCH ×4 (00:04→18:47)
[2017-03-06] MEDS: PIPERACILLIN/TAZO IV Push 3.375 GM VIAL. IVP SCH ×4 (01:24→18:45)
[2017-03-06 03:03] VITALS: BP 130/79
[2017-03-06 06:00] LABS: HEMATOCRIT 32.5 % (36.0-47.0); HEMOGLOBIN 11.1 g/dL (12.0-15.5); RED BLOOD COUNT 3.69 x10^6/uL (3.50-5.40); RED CELL DISTRIBUTION WIDTH 14.9 % (11.5-14.5); WHITE BLOOD COUNT 8.9 x10^3/uL (4.0-11.0)
[2017-03-06 06:24] LABS: CALCIUM 8.8 mg/dL (8.5-10.1); CREATININE 0.5 mg/dL (0.6-1.0); GFR 142.6; POTASSIUM 4.3 mmol/L (3.5-5.1)
[2017-03-06 06:34] LABS: MAGNESIUM 2.1 mg/dL (1.8-2.4); PHOSPHORUS 3.4 mg/dL (2.6-4.7)
[2017-03-06 07:00] VITALS: BP 132/64
[2017-03-06] MEDS: PANTOPRAZOLE IV PUSH 40 MG VIAL. IVP SCH (08:09)
--- NOTE | 2017-03-06 09:08 | PDOC ---
KONRAD ARREAGA [employer]ICE 03/06/17 0907: SURGICAL PROGRESS NOTE Subjective nausea, no flatus or stool today very small stool yesterday Vital Signs Vital Signs Date Time Temp Pulse Resp B/P (MAP) Pulse Ox O2 Delivery O2 Flow Rate FiO2 03/06/17 08:00 Room Air 03/06/17 07:00 98.0 87 19 132/64 (86) 98 98.0 I&O Intake and Output 03/06/17 07:00 Intake Total 610 ml Output Total 1050 ml Balance -440 ml Intake Oral 0 ml IV Total 610 ml Output Urine Total 1050 ml # Voids 2 General: Alert, Oriented X3, Cooperative, No acute distress Abdomen: Soft Labs Laboratory Tests Test 03/04/17 11:30 03/04/17 16:48 03/05/17 06:32 03/05/17 07:50 Glucose (Fingerstick) 150 mg/dL (70-99) 153 mg/dL (70-99) 140 mg/dL (70-99) White Blood Count 9.4 x10^3/uL (4.0-11.0) Red Blood Count 3.86 x10^6/uL (3.50-5.40) Hemoglobin 11.5 g/dL (12.0-15.5) Hematocrit 34.4 % (36.0-47.0) Mean Corpuscular Volume 89 fL (79-100) Mean Corpuscular Hemoglobin 30 pg (25-35) Mean Corpuscular Hemoglobin Concent 34 g/dL (31-37) Red Cell Distribution Width 15.0 % (11.5-14.5) Platelet Count 299 x10^3/uL (140-400) Sodium Level 137 mmol/L (136-145) Potassium Level 4.6 mmol/L (3.5-5.1) Chloride Level 103 mmol/L (98-107) Carbon Dioxide Level 26 mmol/L (21-32) Anion Gap 8 (6-14) Blood Urea Nitrogen 18 mg/dL (7-20) Creatinine 0.5 mg/dL (0.6-1.0) Estimated GFR (Cockcroft-Gault) 142.6 Glucose Level 125 mg/dL (70-99) Calcium Level 8.7 mg/dL (8.5-10.1) Test 03/05/17 11:18 03/05/17 16:15 03/05/17 22:51 03/06/17 05:30 Glucose (Fingerstick) 115 mg/dL (70-99) 136 mg/dL (70-99) 133 mg/dL (70-99) White Blood Count 8.9 x10^3/uL (4.0-11.0) Red Blood Count 3.69 x10^6/uL (3.50-5.40) Hemoglobin 11.1 g/dL (12.0-15.5) Hematocrit 32.5 % (36.0-47.0) Mean Corpuscular Volume 88 fL (79-100) Mean Corpuscular Hemoglobin 30 pg (25-35) Mean Corpuscular Hemoglobin Concent 34 g/dL (31-37) Red Cell Distribution Width 14.9 % (11.5-14.5) Platelet Count 299 x10^3/uL (140-400) Sodium Level 139 mmol/L (136-145) Potassium Level 4.3 mmol/L (3.5-5.1) Chloride Level 105 mmol/L (98-107) Carbon Dioxide Level 27 mmol/L (21-32) Anion Gap 7 (6-14) Blood Urea Nitrogen 20 mg/dL (7-20) Creatinine 0.5 mg/dL (0.6-1.0) Estimated GFR (Cockcroft-Gault) 142.6 Glucose Level 136 mg/dL (70-99) Calcium Level 8.8 mg/dL (8.5-10.1) Phosphorus Level 3.4 mg/dL (2.6-4.7) Magnesium Level 2.1 mg/dL (1.8-2.4) Laboratory Tests Test 03/05/17 11:18 03/05/17 16:15 03/05/17 22:51 03/06/17 05:30 Glucose (Fingerstick) 115 mg/dL (70-99) 136 mg/dL (70-99) 133 mg/dL (70-99) White Blood Count 8.9 x10^3/uL (4.0-11.0) Red Blood Count 3.69 x10^6/uL (3.50-5.40) Hemoglobin 11.1 g/dL (12.0-15.5) Hematocrit 32.5 % (36.0-47.0) Mean Corpuscular Volume 88 fL (79-100) Mean Corpuscular Hemoglobin 30 pg (25-35) Mean Corpuscular Hemoglobin Concent 34 g/dL (31-37) Red Cell Distribution Width 14.9 % (11.5-14.5) Platelet Count 299 x10^3/uL (140-400) Sodium Level 139 mmol/L (136-145) Potassium Level 4.3 mmol/L (3.5-5.1) Chloride Level 105 mmol/L (98-107) Carbon Dioxide Level 27 mmol/L (21-32) Anion Gap 7 (6-14) Blood Urea Nitrogen 20 mg/dL (7-20) Creatinine 0.5 mg/dL (0.6-1.0) Estimated GFR (Cockcroft-Gault) 142.6 Glucose Level 136 mg/dL (70-99) Calcium Level 8.8 mg/dL (8.5-10.1) Phosphorus Level 3.4 mg/dL (2.6-4.7) Magnesium Level 2.1 mg/dL (1.8-2.4) Problem List Problems Medical Problems: (1) Hypokalemia Status: Acute (2) Hyponatremia Status: Acute Assessment/Plan palliative care involved Problems: ORLANDO NOVOA MD 03/06/17 1106: SURGICAL PROGRESS NOTE Assessment/Plan Pt seen and examined. Agree with Be's note Pt with c/o tight abd, denies other pain abd soft, distended d/w Dr. Henson, he noted mesentery implants and poorly differentiated tumor agree with plans for palliative care Problems: KONRAD ARREAGA APRN Mar 06, 2017 09:07 ORLANDO NOVOA MD Mar 06, 2017 11:06
--- NOTE | 2017-03-06 09:12 | RAD ---
ABDOMEN AP Clinical Indication: SBO f/u Comparison: KUB, prior day Findings: There are persistent at least moderately dilated small bowel loops in the central abdomen. Limited sensitivity for detection of pneumoperitoneum on supine radiograph. Right hip screw and intramedullary isiah. IMPRESSION: No significant change of small bowel obstruction.
[2017-03-06 11:00] VITALS: BP 133/67
--- NOTE | 2017-03-06 12:09 | PDOC ---
GENERAL General: vss and afebrile. awake and alert. denies pain but thinks she would feel better if she could vomit. sugars decent. on TPN. planning on transition to hospice at this point. chest clear, heart regular, and abdomen with some distention but non tender. continue same. Problems: VITAL SIGNS Vital Signs: Vital Signs Date Time Temp Pulse Resp B/P (MAP) Pulse Ox O2 Delivery O2 Flow Rate FiO2 03/06/17 11:00 98.0 98 20 133/67 (89) 97 Room Air 98.0 I & O I & O Intake and Output 03/06/17 07:00 Intake Total 610 ml Output Total 1050 ml Balance -440 ml Intake Oral 0 ml IV Total 610 ml Output Urine Total 1050 ml # Voids 2 ALLERGIES Allergies: Allergies Coded Allergies Type Severity Reaction Last Updated Verified No Known Drug Allergies 05/08/16 No MEDS Medications: Current Medications Medications (Trade) Dose Ordered Sig/Becky Start Time Stop Time Status Last Admin Dose Admin Benzocaine (Hurricaine One) 1 spray 1X ONCE 03/05/17 07:00 03/05/17 07:01 DC Digoxin (Lanoxin) 250 mcg 1X ONCE 03/04/17 05:15 03/04/17 05:17 DC 03/04/17 05:20 250 MCG Enoxaparin Sodium (Lovenox 100mg Syringe) 70 mg Q12HR 03/03/17 11:00 03/06/17 08:10 70 MG Info 1 each PRN DAILY PRN 03/01/17 12:00 03/05/17 12:49 1 EACH Labetalol HCl (Normodyne) 20 mg PRN Q2HR PRN 03/03/17 10:15 Lidocaine HCl (Glydo (Lidocaine) Jelly) 1 jigar 1X ONCE 03/05/17 07:00 03/05/17 07:01 DC Magnesium Sulfate/ Dextrose 100 ml @ 25 mls/hr 1X ONCE 02/28/17 13:00 02/28/17 16:59 DC 02/28/17 14:36 25 MLS/HR Metoprolol Tartrate (Lopressor Vial) 5 mg Q6HRS 03/05/17 18:00 03/06/17 05:30 5 MG Morphine Sulfate 2 mg PRN Q2HR PRN 02/28/17 10:45 03/01/17 10:44 DC 02/28/17 11:38 2 MG Nitroglycerin (Nitro-Dur 0.1mg) 1 patch DAILY 03/03/17 11:00 03/04/17 11:42 DC 03/04/17 08:48 1 PATCH Ondansetron HCl (Zofran) 4 mg PRN Q6HRS PRN 03/02/17 10:00 Pantoprazole Sodium (Protonix Vial) 40 mg DAILYAC 02/28/17 13:00 03/06/17 08:09 40 MG Piperacillin Sod/ Tazobactam Sod (Zosyn) 3.375 gm Q6HRS 03/05/17 10:00 03/06/17 05:30 3.375 GM Piperacillin Sod/ Tazobactam Sod 3.375 gm/Dextrose 50 ml @ 100 mls/hr Q6HRS 03/05/17 12:00 03/05/17 12:00 DC Potassium Chloride 10 meq/ Sodium Chloride 105 ml @ 210 mls/hr Q1HR 03/01/17 11:00 03/01/17 14:29 DC 03/01/17 13:50 210 MLS/HR Potassium Chloride 40 meq/ Dextrose 1,020 ml @ 75 mls/hr 1X ONCE 03/01/17 10:00 03/01/17 23:35 UNV Potassium Chloride/Dextrose/ Sod Cl 1,000 ml @ 50 mls/hr Q20H 02/28/17 13:00 03/01/17 09:05 100 MLS/HR Potassium Chloride (Klor-Con) 40 meq 1X ONCE 02/28/17 11:00 02/28/17 11:01 DC 02/28/17 16:17 40 MEQ Sodium Chloride 90 meq/Potassium Chloride 50 meq/ Potassium Phosphate 13.6 mmol/Magnesium Sulfate 10 meq/ Calcium Gluconate 10 meq/ Multivitamins 10 ml/Chromium/ Copper/Manganese/ Seleni/Zn 1 ml/ Total Parenteral Nutrition/Amino Acids/Dextrose/ Fat Emulsion Intravenous 1,512 ml @ 63 mls/hr TPN CONT 03/01/17 22:00 03/02/17 21:59 DC 03/01/17 22:38 63 MLS/HR Sodium Chloride 110 meq/Potassium Chloride 50 meq/ Potassium Phosphate 18 mmol/ Magnesium Sulfate 10 meq/Calcium Gluconate 10 meq/ Multivitamins 10 ml/Chromium/ Copper/Manganese/ Seleni/Zn 1 ml/ Total Parenteral Nutrition/Amino Acids/Dextrose/ Fat Emulsion Intravenous 1,512 ml @ 63 mls/hr TPN CONT 03/02/17 22:00 03/03/17 21:59 DC 03/02/17 22:36 63 MLS/HR Sodium Chloride 130 meq/Potassium Chloride 50 meq/ Potassium Phosphate 18 mmol/ Magnesium Sulfate 10 meq/Calcium Gluconate 10 meq/ Multivitamins 10 ml/Chromium/ Copper/Manganese/ Seleni/Zn 1 ml/ Total Parenteral Nutrition/Amino Acids/Dextrose/ Fat Emulsion Intravenous 1,512 ml @ 63 mls/hr TPN CONT 03/04/17 22:00 03/05/17 21:59 DC 03/04/17 22:12 63 MLS/HR Sodium Chloride 130 meq/Potassium Chloride 50 meq/ Potassium Phosphate 18 mmol/ Magnesium Sulfate 10 meq/Calcium Gluconate 5 meq/ Multivitamins 10 ml/Chromium/ Copper/Manganese/ Seleni/Zn 1 ml/ Total Parenteral Nutrition/Amino Acids/Dextrose/ Fat Emulsion Intravenous 1,512 ml @ 63 mls/hr TPN CONT 03/05/17 22:00 03/06/17 21:59 03/05/17 22:40 63 MLS/HR Sucralfate (Carafate) 1 gm QIDPMEDS 03/02/17 10:00 03/02/17 10:00 Cancel Throat Lozenges (Cepacol Sore Throat Lozenge) 1 lana PRN Q2HRS PRN 03/02/17 14:30 Throat Lozenges (Chloraseptic) 1 spray PRN Q2HR PRN 03/02/17 14:30 LAB Lab: Laboratory Tests Test 03/05/17 16:15 03/05/17 22:51 03/06/17 05:30 03/06/17 10:43 Glucose (Fingerstick) 136 mg/dL (70-99) 133 mg/dL (70-99) 136 mg/dL (70-99) White Blood Count 8.9 x10^3/uL (4.0-11.0) Red Blood Count 3.69 x10^6/uL (3.50-5.40) Hemoglobin 11.1 g/dL (12.0-15.5) Hematocrit 32.5 % (36.0-47.0) Mean Corpuscular Volume 88 fL (79-100) Mean Corpuscular Hemoglobin 30 pg (25-35) Mean Corpuscular Hemoglobin Concent 34 g/dL (31-37) Red Cell Distribution Width 14.9 % (11.5-14.5) Platelet Count 299 x10^3/uL (140-400) Sodium Level 139 mmol/L (136-145) Potassium Level 4.3 mmol/L (3.5-5.1) Chloride Level 105 mmol/L (98-107) Carbon Dioxide Level 27 mmol/L (21-32) Anion Gap 7 (6-14) Blood Urea Nitrogen 20 mg/dL (7-20) Creatinine 0.5 mg/dL (0.6-1.0) Estimated GFR (Cockcroft-Gault) 142.6 Glucose Level 136 mg/dL (70-99) Calcium Level 8.8 mg/dL (8.5-10.1) Phosphorus Level 3.4 mg/dL (2.6-4.7) Magnesium Level 2.1 mg/dL (1.8-2.4) Nutrition Consultation Dietary Evaluation: Recommendations by RD: PPN/TPN Comments: TPN: 225 g dextrose, 60 g AA, 30 g lipid Expected Outcomes/Goals: to meet > 70% est nutrition needs via TPN Interpretation of weight loss: >10% in 6 months Malnutrition Findings: Body Fat Depletion (Non Severe: Mild Depletion Weight Status: Appropriate FANY HOWARD MD Mar 06, 2017 12:09
[2017-03-06] MEDS: ONDANSETRON PF 4 MG/2 ML VIAL. IV PRN (13:39)
[2017-03-06] MEDS: TPN PER PHARMACY MC PRN (14:07)
[2017-03-06] MEDS: POTASSIUM CL 20MEQ D5-0.45NACL 1,000 ML IV SCH (14:18)
[2017-03-06 15:00] VITALS: BP 123/59
[2017-03-06 19:30] VITALS: BP 134/64
[2017-03-06] MEDS ORDERED: AMINO ACIDS IV SCH ×10 (22:00)
[2017-03-06] MEDS ORDERED: [UNRECOGNIZED DRUG - OTHER] IV SCH ×10 (22:00)
[2017-03-06] MEDS ORDERED: TOTAL PARENTERAL NUTRITION IV SCH ×10 (22:00)
[2017-03-06] MEDS ORDERED: DEXTROSE 70% IV SCH ×10 (22:00)
[2017-03-06 23:30] VITALS: BP 126/62
[2017-03-07] MEDS: PIPERACILLIN/TAZO IV Push 3.375 GM VIAL. IVP SCH ×5 (00:17→23:42)
[2017-03-07] MEDS: METOPROLOL TARTRATE 5 MG/5 ML VIAL. IVP SCH ×5 (00:17→23:42)
[2017-03-07 03:45] VITALS: BP 117/63
[2017-03-07 07:00] VITALS: BP 131/62
[2017-03-07] MEDS: PANTOPRAZOLE IV PUSH 40 MG VIAL. IVP SCH (07:41)
--- NOTE | 2017-03-07 08:26 | PDOC ---
KONRAD ARREAGA [employer] OPERATOR 03/07/17 0826: SURGICAL PROGRESS NOTE Subjective pain managed + distention, n/v Vital Signs Vital Signs Date Time Temp Pulse Resp B/P (MAP) Pulse Ox O2 Delivery O2 Flow Rate FiO2 03/07/17 06:19 99 117/63 03/07/17 03:45 97.6 22 99 Room Air 97.6 I&O Intake and Output 03/07/17 07:00 Intake Total 0 ml Output Total 850 ml Balance -850 ml Intake Oral 0 ml Output Urine Total 850 ml General: Alert, Oriented X3, Cooperative, No acute distress Abdomen: Other (distended, mildly tender) Labs Laboratory Tests Test 03/05/17 11:18 03/05/17 16:15 03/05/17 22:51 03/06/17 05:30 Glucose (Fingerstick) 115 mg/dL (70-99) 136 mg/dL (70-99) 133 mg/dL (70-99) White Blood Count 8.9 x10^3/uL (4.0-11.0) Red Blood Count 3.69 x10^6/uL (3.50-5.40) Hemoglobin 11.1 g/dL (12.0-15.5) Hematocrit 32.5 % (36.0-47.0) Mean Corpuscular Volume 88 fL (79-100) Mean Corpuscular Hemoglobin 30 pg (25-35) Mean Corpuscular Hemoglobin Concent 34 g/dL (31-37) Red Cell Distribution Width 14.9 % (11.5-14.5) Platelet Count 299 x10^3/uL (140-400) Sodium Level 139 mmol/L (136-145) Potassium Level 4.3 mmol/L (3.5-5.1) Chloride Level 105 mmol/L (98-107) Carbon Dioxide Level 27 mmol/L (21-32) Anion Gap 7 (6-14) Blood Urea Nitrogen 20 mg/dL (7-20) Creatinine 0.5 mg/dL (0.6-1.0) Estimated GFR (Cockcroft-Gault) 142.6 Glucose Level 136 mg/dL (70-99) Calcium Level 8.8 mg/dL (8.5-10.1) Phosphorus Level 3.4 mg/dL (2.6-4.7) Magnesium Level 2.1 mg/dL (1.8-2.4) Test 03/06/17 10:43 03/06/17 16:53 03/06/17 23:23 Glucose (Fingerstick) 136 mg/dL (70-99) 129 mg/dL (70-99) 138 mg/dL (70-99) Laboratory Tests Test 03/06/17 10:43 03/06/17 16:53 03/06/17 23:23 Glucose (Fingerstick) 136 mg/dL (70-99) 129 mg/dL (70-99) 138 mg/dL (70-99) Problem List Problems Medical Problems: (1) Hypokalemia Status: Acute (2) Hyponatremia Status: Acute Assessment/Plan supportive care no surgical plans Problems: ORLANDO NOVOA MD 03/07/17 1417: SURGICAL PROGRESS NOTE Assessment/Plan Pt seen and examined. Agree with Ms. Arreaga's note Pt with c/o abd distention, N/V abd distended cont supportive care, moving towards comfort care, no surgical plans Problems: KONRAD ARREAGA APRN Mar 07, 2017 08:26 OR[place]O NOVOA MD Mar 07, 2017 14:17
[2017-03-07] MEDS: TPN PER PHARMACY MC PRN (09:37)
--- NOTE | 2017-03-07 09:50 | RAD ---
KUB Clinical Indication: SBO f/u Comparison: KUB, prior day. Findings: There are moderately dilated small bowel loops similar to prior day's study. Stable hardware right hip. IMPRESSION: Small bowel obstruction without significant change.
[2017-03-07] MEDS: POTASSIUM CL 20MEQ D5-0.45NACL 1,000 ML IV SCH (10:18)
[2017-03-07] MEDS: ONDANSETRON PF 4 MG/2 ML VIAL. IV PRN (10:28)
[2017-03-07 11:00] VITALS: BP 111/61
--- NOTE | 2017-03-07 11:51 | PDOC ---
GENERAL General: vss and afebrile. sugars good. resting comfortably with same exam as yesterday. hospice planning underway. continue same. Problems: VITAL SIGNS Vital Signs: Vital Signs Date Time Temp Pulse Resp B/P (MAP) Pulse Ox O2 Delivery O2 Flow Rate FiO2 03/07/17 08:00 Room Air 03/07/17 07:00 97.4 85 19 131/62 (85) 97 97.4 I & O I & O Intake and Output 03/07/17 07:00 Intake Total 0 ml Output Total 850 ml Balance -850 ml Intake Oral 0 ml Output Urine Total 850 ml ALLERGIES Allergies: Allergies Coded Allergies Type Severity Reaction Last Updated Verified No Known Drug Allergies 05/08/16 No MEDS Medications: Current Medications Medications (Trade) Dose Ordered Sig/Becky Start Time Stop Time Status Last Admin Dose Admin Benzocaine (Hurricaine One) 1 spray 1X ONCE 03/05/17 07:00 03/05/17 07:01 DC Digoxin (Lanoxin) 250 mcg 1X ONCE 03/04/17 05:15 03/04/17 05:17 DC 03/04/17 05:20 250 MCG Enoxaparin Sodium (Lovenox 100mg Syringe) 70 mg Q12HR 03/03/17 11:00 03/07/17 09:37 DC 03/06/17 21:45 70 MG Enoxaparin Sodium (Lovenox 80mg Syringe) 70 mg Q12HR 03/07/17 10:00 Info 1 each PRN DAILY PRN 03/01/17 12:00 03/07/17 09:37 1 EACH Labetalol HCl (Normodyne) 20 mg PRN Q2HR PRN 03/03/17 10:15 Lidocaine HCl (Glydo (Lidocaine) Jelly) 1 jigar 1X ONCE 03/05/17 07:00 03/05/17 07:01 DC Magnesium Sulfate/ Dextrose 100 ml @ 25 mls/hr 1X ONCE 02/28/17 13:00 02/28/17 16:59 DC 02/28/17 14:36 25 MLS/HR Metoprolol Tartrate (Lopressor Vial) 5 mg Q6HRS 03/05/17 18:00 03/07/17 06:19 5 MG Morphine Sulfate 2 mg PRN Q2HR PRN 02/28/17 10:45 03/01/17 10:44 DC 02/28/17 11:38 2 MG Nitroglycerin (Nitro-Dur 0.1mg) 1 patch DAILY 03/03/17 11:00 03/04/17 11:42 DC 03/04/17 08:48 1 PATCH Ondansetron HCl (Zofran) 4 mg PRN Q6HRS PRN 03/02/17 10:00 03/07/17 10:28 4 MG Pantoprazole Sodium (Protonix Vial) 40 mg DAILYAC 02/28/17 13:00 03/07/17 07:41 40 MG Piperacillin Sod/ Tazobactam Sod (Zosyn) 3.375 gm Q6HRS 03/05/17 10:00 03/07/17 06:19 3.375 GM Piperacillin Sod/ Tazobactam Sod 3.375 gm/Dextrose 50 ml @ 100 mls/hr Q6HRS 03/05/17 12:00 03/05/17 12:00 DC Potassium Chloride 10 meq/ Sodium Chloride 105 ml @ 210 mls/hr Q1HR 03/01/17 11:00 03/01/17 14:29 DC 03/01/17 13:50 210 MLS/HR Potassium Chloride 40 meq/ Dextrose 1,020 ml @ 75 mls/hr 1X ONCE 03/01/17 10:00 03/01/17 23:35 UNV Potassium Chloride/Dextrose/ Sod Cl 1,000 ml @ 50 mls/hr Q20H 02/28/17 13:00 03/01/17 09:05 100 MLS/HR Potassium Chloride (Klor-Con) 40 meq 1X ONCE 02/28/17 11:00 02/28/17 11:01 DC 02/28/17 16:17 40 MEQ Sodium Chloride 90 meq/Potassium Chloride 50 meq/ Potassium Phosphate 13.6 mmol/Magnesium Sulfate 10 meq/ Calcium Gluconate 10 meq/ Multivitamins 10 ml/Chromium/ Copper/Manganese/ Seleni/Zn 1 ml/ Total Parenteral Nutrition/Amino Acids/Dextrose/ Fat Emulsion Intravenous 1,512 ml @ 63 mls/hr TPN CONT 03/01/17 22:00 03/02/17 21:59 DC 03/01/17 22:38 63 MLS/HR Sodium Chloride 110 meq/Potassium Chloride 50 meq/ Potassium Phosphate 18 mmol/ Magnesium Sulfate 10 meq/Calcium Gluconate 10 meq/ Multivitamins 10 ml/Chromium/ Copper/Manganese/ Seleni/Zn 1 ml/ Total Parenteral Nutrition/Amino Acids/Dextrose/ Fat Emulsion Intravenous 1,512 ml @ 63 mls/hr TPN CONT 03/02/17 22:00 03/03/17 21:59 DC 03/02/17 22:36 63 MLS/HR Sodium Chloride 130 meq/Potassium Chloride 50 meq/ Potassium Phosphate 18 mmol/ Magnesium Sulfate 10 meq/Calcium Gluconate 10 meq/ Multivitamins 10 ml/Chromium/ Copper/Manganese/ Seleni/Zn 1 ml/ Total Parenteral Nutrition/Amino Acids/Dextrose/ Fat Emulsion Intravenous 1,512 ml @ 63 mls/hr TPN CONT 03/04/17 22:00 03/05/17 21:59 DC 03/04/17 22:12 63 MLS/HR Sodium Chloride 130 meq/Potassium Chloride 50 meq/ Potassium Phosphate 18 mmol/ Magnesium Sulfate 10 meq/Calcium Gluconate 5 meq/ Multivitamins 10 ml/Chromium/ Copper/Manganese/ Seleni/Zn 1 ml/ Total Parenteral Nutrition/Amino Acids/Dextrose/ Fat Emulsion Intravenous 1,512 ml @ 63 mls/hr TPN CONT 03/07/17 22:00 03/08/17 21:59 Sucralfate (Carafate) 1 gm QIDPMEDS 03/02/17 10:00 03/02/17 10:00 Cancel Throat Lozenges (Cepacol Sore Throat Lozenge) 1 lana PRN Q2HRS PRN 03/02/17 14:30 Throat Lozenges (Chloraseptic) 1 spray PRN Q2HR PRN 03/02/17 14:30 LAB Lab: Laboratory Tests Test 03/06/17 16:53 03/06/17 23:23 Glucose (Fingerstick) 129 mg/dL (70-99) 138 mg/dL (70-99) Nutrition Consultation Dietary Evaluation: Recommendations by RD: PPN/TPN Comments: TPN: 225 g dextrose, 60 g AA, 30 g lipid Expected Outcomes/Goals: to meet > 70% est nutrition needs via TPN Interpretation of weight loss: >10% in 6 months Malnutrition Findings: Body Fat Depletion (Non Severe: Mild Depletion Weight Status: Appropriate FANY HOWARD MD Mar 07, 2017 11:51
[2017-03-07 15:00] VITALS: BP 114/64
[2017-03-07 19:35] VITALS: BP 110/61
[2017-03-07] MEDS ORDERED: DEXTROSE 70% IV SCH ×10 (22:00)
[2017-03-07] MEDS ORDERED: AMINO ACIDS IV SCH ×10 (22:00)
[2017-03-07] MEDS ORDERED: [UNRECOGNIZED DRUG - OTHER] IV SCH ×10 (22:00)
[2017-03-07] MEDS ORDERED: TOTAL PARENTERAL NUTRITION IV SCH ×10 (22:00)
[2017-03-07 22:48] VITALS: BP 132/63
[2017-03-08 03:12] VITALS: BP 121/62
[2017-03-08] MEDS: PIPERACILLIN/TAZO IV Push 3.375 GM VIAL. IVP SCH (05:09)
[2017-03-08] MEDS: METOPROLOL TARTRATE 5 MG/5 ML VIAL. IVP SCH (05:10)
[2017-03-08 05:45] LABS: CALCIUM 8.6 mg/dL (8.5-10.1); CREATININE 0.6 mg/dL (0.6-1.0); GFR 115.5
[2017-03-08 05:50] LABS: MAGNESIUM 2.1 mg/dL (1.8-2.4); PHOSPHORUS 3.3 mg/dL (2.6-4.7)
[2017-03-08] MEDS: POTASSIUM CL 20MEQ D5-0.45NACL 1,000 ML IV SCH (06:18)
[2017-03-08 07:00] VITALS: BP 121/58
[2017-03-08] MEDS: PANTOPRAZOLE IV PUSH 40 MG VIAL. IVP SCH (08:37)
--- NOTE | 2017-03-08 08:38 | RAD ---
Indication: Small bowel obstruction. Time of exam 0723 hours. Correlation is made with prior study from 03/07/2017. There continues to be moderate gaseous distention of bowel loops in the central abdomen, similar to yesterday. These likely represent small bowel loops. The colon is decompressed. No bowel wall thickening or pneumatosis is seen. No definite free air is identified. Postop changes in the right hip are noted. Impression: Continued gaseous distention of the bowel loops in the central abdomen, likely owing to small bowel obstruction. This is similar to exam one day earlier.
--- NOTE | 2017-03-08 09:07 | PDOC ---
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 ROS - has n/v Objective Objective Vital Signs Date Time Temp Pulse Resp B/P (MAP) Pulse Ox O2 Delivery O2 Flow Rate FiO2 03/08/17 07:00 98.1 97 19 121/58 (79) 96 Room Air 98.1 Intake and Output 03/08/17 07:00 Intake Total 10 ml Output Total 775 ml Balance -765 ml Intake Oral 10 ml Output Urine Total 775 ml Physical Exam Lungs: Normal air movement Neuro: Normal speech Psych/Mental Status: Mental status NL Assessment Assessment Problems Medical Problems: (1) Hypokalemia Status: Acute (2) Hyponatremia Status: Acute IMPRESSION AND PLAN: 1. 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 I d/w DR Emerson and pt is not a candidate for palliative surgery or chemotherapy and pt agrees to pursue with comfort care and hospice. Consulted palliative care. I d/w palliative care team. 2. Small bowel obstruction. I appreciate management by Dr. Zuleta. NGT suction in place 3. Anemia secondary to malignancy. Continue to monitor. Hb 11.1. Comment Review of Relevant I have reviewed the following items alisson (where applicable) has been applied. Labs Laboratory Tests Test 03/06/17 10:43 03/06/17 16:53 03/06/17 23:23 03/08/17 05:15 Glucose (Fingerstick) 136 mg/dL (70-99) 129 mg/dL (70-99) 138 mg/dL (70-99) Sodium Level 141 mmol/L (136-145) Potassium Level 4.0 mmol/L (3.5-5.1) Chloride Level 109 mmol/L (98-107) Carbon Dioxide Level 26 mmol/L (21-32) Anion Gap 6 (6-14) Blood Urea Nitrogen 25 mg/dL (7-20) Creatinine 0.6 mg/dL (0.6-1.0) Estimated GFR (Cockcroft-Gault) 115.5 Glucose Level 135 mg/dL (70-99) Calcium Level 8.6 mg/dL (8.5-10.1) Phosphorus Level 3.3 mg/dL (2.6-4.7) Magnesium Level 2.1 mg/dL (1.8-2.4) Triglycerides Level 46 mg/dL (0-150) Laboratory Tests Test 03/08/17 05:15 Sodium Level 141 mmol/L (136-145) Potassium Level 4.0 mmol/L (3.5-5.1) Chloride Level 109 mmol/L (98-107) Carbon Dioxide Level 26 mmol/L (21-32) Anion Gap 6 (6-14) Blood Urea Nitrogen 25 mg/dL (7-20) Creatinine 0.6 mg/dL (0.6-1.0) Estimated GFR (Cockcroft-Gault) 115.5 Glucose Level 135 mg/dL (70-99) Calcium Level 8.6 mg/dL (8.5-10.1) Phosphorus Level 3.3 mg/dL (2.6-4.7) Magnesium Level 2.1 mg/dL (1.8-2.4) Triglycerides Level 46 mg/dL (0-150) Microbiology 03/02/17 Urine Culture - Final, Complete 03/02/17 Urine Culture Result 1 (YOLANDA) - Final, Complete 03/02/17 Urine Culture Result 2 (YOLANDA) - Final, Complete 03/02/17 Antimicrobic Susceptibility - Final, Complete Medications Current Medications Ondansetron HCl (Zofran) 4 mg 1X ONCE IV Last administered on 02/28/17 09:50 ; Start 02/28/17 at 09:30; Stop 02/28/17 at 09:31; Status DC Sodium Chloride 1,000 ml @ 1,000 mls/hr 1X ONCE IV Last administered on 02/28 13:34; Start 02/28/17 at 11:00; Stop 02/28/17 at 11:59; Status DC Ondansetron HCl (Zofran) 4 mg PRN Q8HRS PRN IV NAUSEA/VOMITING Last administered on 02/28/17 11:36; Start 02/28/17 at 10:45; Stop 03/01/17 at 10 :44; Status DC Morphine Sulfate 2 mg PRN Q2HR PRN IV PAIN Last administered on 02/28/17 11: 38; Start 02/28/17 at 10:45; Stop 03/01/17 at 10:44; Status DC Potassium Chloride (Klor-Con) 40 meq 1X ONCE PO Last administered on 16:17; Start 02/28/17 at 11:00; Stop 02/28/17 at 11:01; Status DC Potassium Chloride/Dextrose/ Sod Cl 1,000 ml @ 50 mls/hr Q20H IV Last administered on 03/01/17 09:05; Start 02/28/17 at 13:00 Magnesium Sulfate/ Dextrose 100 ml @ 25 mls/hr 1X ONCE IV Last administered on 02/28/17 14:36; Start 02/28/17 at 13:00; Stop 02/28/17 at 16:59; Status DC Pantoprazole Sodium (Protonix Vial) 40 mg DAILYAC IVP Last administered on 08:37; Start 02/28/17 at 13:00 Potassium Chloride 40 meq/ Dextrose 1,020 ml @ 75 mls/hr 1X ONCE IV ; Start 03/01/17 at 10:00; Stop 03/01/17 at 23:35; Status UNV Potassium Chloride 10 meq/ Sodium Chloride 105 ml @ 210 mls/hr Q1HR IV Last administered on 03/01/17 13:50; Start 03/01/17 at 11:00; Stop 03/01/17 at 14 :29; Status DC Info 1 each PRN DAILY PRN MC SEE COMMENTS Last administered on 03/07/17 09:37 ; Start 03/01/17 at 12:00 Sodium Chloride 90 meq/Potassium Chloride 50 meq/ Potassium Phosphate 13.6 mmol/ Magnesium Sulfate 10 meq/ Calcium Gluconate 10 meq/ Multivitamins 10 ml/Chromium / Copper/Manganese/ Seleni/Zn 1 ml/ Total Parenteral Nutrition/Amino Acids/ Dextrose/ Fat Emulsion Intravenous 1,512 ml @ 63 mls/hr TPN CONT IV Last administered on 03/01/17 22:38; Start 03/01/17 at 22:00; Stop 03/02/17 at 21 :59; Status DC Sucralfate (Carafate) 1 gm QIDPMEDS PO ; Start 03/02/17 at 10:00; Stop at 10:00; Status Cancel Ondansetron HCl (Zofran) 4 mg PRN Q6HRS PRN IV NAUSEA/VOMITING Last administered on 03/07/17 10:28; Start 03/02/17 at 10:00 Sodium Chloride 110 meq/Potassium Chloride 50 meq/ Potassium Phosphate 18 mmol/ Magnesium Sulfate 10 meq/Calcium Gluconate 10 meq/ Multivitamins 10 ml/Chromium / Copper/Manganese/ Seleni/Zn 1 ml/ Total Parenteral Nutrition/Amino Acids/ Dextrose/ Fat Emulsion Intravenous 1,512 ml @ 63 mls/hr TPN CONT IV Last administered on 03/02/17 22:36; Start 03/02/17 at 22:00; Stop 03/03/17 at 21 :59; Status DC Lidocaine HCl (Glydo (Lidocaine) Jelly) 1 jigar 1X ONCE MM Last administered on 03/02/17 14:10; Start 03/02/17 at 13:30; Stop 03/02/17 at 13:34; Status DC Benzocaine (Hurricaine One) 1 spray 1X ONCE MM Last administered on 15:35; Start 03/02/17 at 13:30; Stop 03/02/17 at 13:34; Status DC Throat Lozenges (Chloraseptic) 1 spray PRN Q2HR PRN PO SORE THROAT; Start at 14:30 Throat Lozenges (Cepacol Sore Throat Lozenge) 1 lana PRN Q2HRS PRN PO SORE THROAT; Start 03/02/17 at 14:30 Enoxaparin Sodium (Lovenox 100mg Syringe) 70 mg Q12HR SQ Last administered on 03/06/17 21:45; Start 03/03/17 at 11:00; Stop 03/07/17 at 09:37; Status DC Labetalol HCl (Normodyne) 20 mg PRN Q2HR PRN IVP HYPERTENSION, SEE COMMENTS; Start 03/03/17 at 10:15 Nitroglycerin (Nitro-Dur 0.1mg) 1 patch DAILY TD Last administered on 08:48; Start 03/03/17 at 11:00; Stop 03/04/17 at 11:42; Status DC Sodium Chloride 130 meq/Potassium Chloride 50 meq/ Potassium Phosphate 18 mmol/ Magnesium Sulfate 10 meq/Calcium Gluconate 10 meq/ Multivitamins 10 ml/Chromium / Copper/Manganese/ Seleni/Zn 1 ml/ Total Parenteral Nutrition/Amino Acids/ Dextrose/ Fat Emulsion Intravenous 1,512 ml @ 63 mls/hr TPN CONT IV Last administered on 03/03/17 22:54; Start 03/03/17 at 22:00; Stop 03/04/17 at 21 :59; Status DC Digoxin (Lanoxin) 125 mcg 1X ONCE IV Last administered on 03/04/17 04:03; Start 03/04/17 at 04:00; Stop 03/04/17 at 04:01; Status DC Sodium Chloride 1,000 ml @ 100 mls/hr Q10H IV Last administered on 03/04/17 04:03; Start 03/04/17 at 04:00; Stop 03/04/17 at 13:59; Status DC Digoxin (Lanoxin) 250 mcg 1X ONCE IV Last administered on 03/04/17 05:20; Start 03/04/17 at 05:15; Stop 03/04/17 at 05:17; Status DC Metoprolol Tartrate (Lopressor Vial) 2.5 mg Q6HRS IVP Last administered on 12:12; Start 03/04/17 at 11:00; Stop 03/05/17 at 13:36; Status DC Sodium Chloride 130 meq/Potassium Chloride 50 meq/ Potassium Phosphate 18 mmol/ Magnesium Sulfate 10 meq/Calcium Gluconate 10 meq/ Multivitamins 10 ml/Chromium / Copper/Manganese/ Seleni/Zn 1 ml/ Total Parenteral Nutrition/Amino Acids/ Dextrose/ Fat Emulsion Intravenous 1,512 ml @ 63 mls/hr TPN CONT IV Last administered on 03/04/17 22:12; Start 03/04/17 at 22:00; Stop 03/05/17 at 21 :59; Status DC Lidocaine HCl (Glydo (Lidocaine) Jelly) 1 jigar 1X ONCE MM ; Start 03/05/17 at 07:00; Stop 03/05/17 at 07:01; Status DC Benzocaine (Hurricaine One) 1 spray 1X ONCE MM ; Start 03/05/17 at 07:00; Stop 03/05/17 at 07:01; Status DC Piperacillin Sod/ Tazobactam Sod 3.375 gm/Dextrose 50 ml @ 100 mls/hr Q6HRS IV ; Start 03/05/17 at 12:00; Stop 03/05/17 at 12:00; Status DC Piperacillin Sod/ Tazobactam Sod (Zosyn) 3.375 gm Q6HRS IVP Last administered on 03/08/17 05:09; Start 03/05/17 at 10:00 Sodium Chloride 130 meq/Potassium Chloride 50 meq/ Potassium Phosphate 18 mmol/ Magnesium Sulfate 10 meq/Calcium Gluconate 5 meq/ Multivitamins 10 ml/Chromium/ Copper/Manganese/ Seleni/Zn 1 ml/ Total Parenteral Nutrition/Amino Acids/ Dextrose/ Fat Emulsion Intravenous 1,512 ml @ 63 mls/hr TPN CONT IV Last administered on 03/05/17 22:40; Start 03/05/17 at 22:00; Stop 03/06/17 at 21 :59; Status DC Metoprolol Tartrate (Lopressor Vial) 5 mg Q6HRS IVP Last administered on 05:10; Start 03/05/17 at 18:00 Sodium Chloride 130 meq/Potassium Chloride 50 meq/ Potassium Phosphate 18 mmol/ Magnesium Sulfate 10 meq/Calcium Gluconate 5 meq/ Multivitamins 10 ml/Chromium/ Copper/Manganese/ Seleni/Zn 1 ml/ Total Parenteral Nutrition/Amino Acids/ Dextrose/ Fat Emulsion Intravenous 1,512 ml @ 63 mls/hr TPN CONT IV Last administered on 03/06/17 21:40; Start 03/06/17 at 22:00; Stop 03/07/17 at 21 :59; Status DC Enoxaparin Sodium (Lovenox 80mg Syringe) 70 mg Q12HR SQ Last administered on 08:38; Start 03/07/17 at 10:00 Sodium Chloride 130 meq/Potassium Chloride 50 meq/ Potassium Phosphate 18 mmol/ Magnesium Sulfate 10 meq/Calcium Gluconate 5 meq/ Multivitamins 10 ml/Chromium/ Copper/Manganese/ Seleni/Zn 1 ml/ Total Parenteral Nutrition/Amino Acids/ Dextrose/ Fat Emulsion Intravenous 1,512 ml @ 63 mls/hr TPN CONT IV Last administered on 03/07/17 21:12; Start 03/07/17 at 22:00; Stop 03/08/17 at 21 :59 Active Scripts Active Reported Toprol Xl (Metoprolol Succinate) 50 Mg Tab.er.24h 1 Tab PO DAILY Lasix (Furosemide) 40 Mg Tablet 1 Tab PO DAILY Lisinopril 2.5 Mg Tablet 1 Tab PO DAILY Potassium Chloride 20 Meq Tablet.er 20 Meq PO DAILY Crestor (Rosuvastatin Calcium) 40 Mg Tablet 1 Tab PO DAILY Miralax (Polyethylene Glycol 3350) 17 Gm Powd.pack 1 Pkt PO DAILY PRN Fish Oil 1,000 mg Softgel ([place]-3/Dha/Epa/Fish Oil) 1,000 Mg Capsule 1,000 Mg PO DAILY Vitamin D3 (Cholecalciferol (Vitamin D3)) 1,000 Unit Tablet 1 Tab PO DAILY Multivitamins (Multivitamin) 1 Each Tablet 1 Tab PO DAILY Eliquis (Apixaban) 5 Mg Tablet 5 Mg PO BID Sucralfate 1 Gm Tablet 1 Gm PO QID Sotalol Af (Sotalol Hcl) 80 Mg Tablet 80 Mg PO BID Dronabinol 2.5 Mg Capsule 2.5 Mg PO BID Hydrochlorothiazide Tablet (Hydrochlorothiazide) 25 Mg Tablet 25 Mg PO DAILY Omeprazole 40 Mg Capsule.dr 1 Cap PO DAILY Gave this morning Take in am Vitals/I & O Vital Sign - Last 24 Hours 03/07/17 03/07/17 03/07/17 03/07/17 11:00 12:00 15:00 18:00 Temp 97.6 97.6 97.6 97.6 Pulse 89 89 112 105 Resp 19 B/P (MAP) 111/61 (78) 111/61 114/64 (81) Pulse Ox 98 97 O2 Delivery Room Air Room Air 03/07/17 03/07/17 03/07/17 03/07/17 19:35 19:44 22:48 23:42 Temp 97.3 97.6 97.3 97.6 Pulse 95 99 99 Resp 19 B/P (MAP) 110/61 (77) 132/63 (86) 132/63 Pulse Ox 96 95 O2 Delivery Room Air Room Air Room Air 03/08/17 03/08/17 03/08/17 03:12 05:10 07:00 Temp 97.8 98.1 97.8 98.1 Pulse 102 100 97 Resp B/P (MAP) 121/62 (81) 120/59 121/58 (79) Pulse Ox 96 96 O2 Delivery Room Air Room Air Intake and Output 03/07/17 03/07/17 03/08/17 15:00 23:00 07:00 Intake Total 0 ml 0 ml 10 ml Output Total 350 ml 225 ml 200 ml Balance -350 ml -225 ml -190 ml Nutrition Consultation Dietary Evaluation: Recommendations by RD: PPN/TPN Comments: TPN: 225 g dextrose, 60 g AA, 30 g lipid Expected Outcomes/Goals: to meet > 70% est nutrition needs via TPN Interpretation of weight loss: >10% in 6 months Malnutrition Findings: Body Fat Depletion (Non Severe: Mild Depletion Weight Status: Appropriate GEENA VELEZ MD Mar 08, 2017 09:07
[2017-03-08 11:00] VITALS: BP 115/57
[2017-03-08] MEDS: TPN PER PHARMACY MC PRN (11:30)
--- NOTE | 2017-03-08 13:11 | PDOC ---
SUBJECTIVE Subjective looks comfortable but c/o nausea OBJECTIVE Vital Signs Vital Signs Date Time Temp Pulse Resp B/P (MAP) Pulse Ox O2 Delivery O2 Flow Rate FiO2 03/08/17 11:00 97.9 104 19 115/57 (76) 95 Room Air 97.9 03/08/17 08:00 Room Air 03/08/17 07:00 98.1 97 19 121/58 (79) 96 Room Air 98.1 03/08/17 05:10 100 120/59 03/08/17 03:12 97.8 102 19 121/62 (81) 96 Room Air 97.8 03/07/17 23:42 99 132/63 03/07/17 22:48 97.6 99 19 132/63 (86) 95 Room Air 97.6 03/07/17 19:44 Room Air 03/07/17 19:35 97.3 95 20 110/61 (77) 96 Room Air 97.3 03/07/17 18:00 105 03/07/17 15:00 97.6 112 19 114/64 (81) 97 Room Air 97.6 I & O Intake and Output 03/08/17 07:00 Intake Total 10 ml Output Total 775 ml Balance -765 ml Intake Oral 10 ml Output Urine Total 775 ml PHYSICAL EXAM Physical Exam still with distended abdomen ASSESSMENT/PLAN Assessment/Plan long discussion with pt and family , she is clear on wanting only comfort measures and no intervention to prolong life, she understand that no surgery means she might not make it but days to weeks , she is at peace with decision, her oldest daughter is DPOA. hospice in AM Problems: COMMENT Lab Laboratory Tests Test 03/08/17 05:15 Sodium Level 141 mmol/L (136-145) Potassium Level 4.0 mmol/L (3.5-5.1) Chloride Level 109 mmol/L (98-107) Carbon Dioxide Level 26 mmol/L (21-32) Anion Gap 6 (6-14) Blood Urea Nitrogen 25 mg/dL (7-20) Creatinine 0.6 mg/dL (0.6-1.0) Estimated GFR (Cockcroft-Gault) 115.5 Glucose Level 135 mg/dL (70-99) Calcium Level 8.6 mg/dL (8.5-10.1) Phosphorus Level 3.3 mg/dL (2.6-4.7) Magnesium Level 2.1 mg/dL (1.8-2.4) Triglycerides Level 46 mg/dL (0-150) JUAN TINEO MD Mar 08, 2017 13:11
[2017-03-08 15:00] VITALS: BP 119/63
[2017-03-08 19:15] VITALS: BP 102/60
[2017-03-08] MEDS ORDERED: AMINO ACIDS IV SCH ×10 (22:00)
[2017-03-08] MEDS ORDERED: [UNRECOGNIZED DRUG - OTHER] IV SCH ×10 (22:00)
[2017-03-08] MEDS ORDERED: DEXTROSE 70% IV SCH ×10 (22:00)
[2017-03-08] MEDS ORDERED: TOTAL PARENTERAL NUTRITION IV SCH ×10 (22:00)
[2017-03-09] MEDS: POTASSIUM CL 20MEQ D5-0.45NACL 1,000 ML IV SCH (02:18)
[2017-03-09 07:00] VITALS: BP 127/60
[2017-03-09] MEDS: PANTOPRAZOLE IV PUSH 40 MG VIAL. IVP SCH (07:30)
--- NOTE | 2017-03-09 09:20 | PDOC ---
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 ROS - c/o n/v Objective Objective Vital Signs Date Time Temp Pulse Resp B/P (MAP) Pulse Ox O2 Delivery O2 Flow Rate FiO2 03/09/17 08:00 Room Air 03/09/17 07:00 97.6 116 16 127/60 (82) 97 97.6 Intake and Output 03/09/17 07:00 Intake Total 1490 ml Output Total 2125 ml Balance -635 ml Intake Oral 0 ml IV Total 1490 ml Output Urine Total 1275 ml Emesis 850 ml Physical Exam Heart: Normal S1, Normal S2 General: Alert, Oriented X3 Lungs: Clear to auscultation Neuro: Normal speech Psych/Mental Status: Mental status NL Assessment Assessment Problems Medical Problems: (1) Hypokalemia Status: Acute (2) Hyponatremia Status: Acute IMPRESSION AND PLAN: 1. 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 I d/w DR Emerson and pt is not a candidate for palliative surgery or chemotherapy and pt agrees to pursue with comfort care and hospice. Consulted palliative care. I d/w palliative care team. Probable discharge today with hospice. 2. Small bowel obstruction/n/v. 3. Anemia secondary to malignancy. Continue to monitor. Hb 11.1. Comment Review of Relevant I have reviewed the following items alisson (where applicable) has been applied. Labs Laboratory Tests Test 03/08/17 05:15 Sodium Level 141 mmol/L (136-145) Potassium Level 4.0 mmol/L (3.5-5.1) Chloride Level 109 mmol/L (98-107) Carbon Dioxide Level 26 mmol/L (21-32) Anion Gap 6 (6-14) Blood Urea Nitrogen 25 mg/dL (7-20) Creatinine 0.6 mg/dL (0.6-1.0) Estimated GFR (Cockcroft-Gault) 115.5 Glucose Level 135 mg/dL (70-99) Calcium Level 8.6 mg/dL (8.5-10.1) Phosphorus Level 3.3 mg/dL (2.6-4.7) Magnesium Level 2.1 mg/dL (1.8-2.4) Triglycerides Level 46 mg/dL (0-150) Microbiology 03/02/17 Urine Culture - Final, Complete 03/02/17 Urine Culture Result 1 (YOLANDA) - Final, Complete 03/02/17 Urine Culture Result 2 (YOLANDA) - Final, Complete 03/02/17 Antimicrobic Susceptibility - Final, Complete Medications Current Medications Ondansetron HCl (Zofran) 4 mg 1X ONCE IV Last administered on 02/28/17 09:50 ; Start 02/28/17 at 09:30; Stop 02/28/17 at 09:31; Status DC Sodium Chloride 1,000 ml @ 1,000 mls/hr 1X ONCE IV Last administered on 02/28 13:34; Start 02/28/17 at 11:00; Stop 02/28/17 at 11:59; Status DC Ondansetron HCl (Zofran) 4 mg PRN Q8HRS PRN IV NAUSEA/VOMITING Last administered on 02/28/17 11:36; Start 02/28/17 at 10:45; Stop 03/01/17 at 10 :44; Status DC Morphine Sulfate 2 mg PRN Q2HR PRN IV PAIN Last administered on 02/28/17 11: 38; Start 02/28/17 at 10:45; Stop 03/01/17 at 10:44; Status DC Potassium Chloride (Klor-Con) 40 meq 1X ONCE PO Last administered on 16:17; Start 02/28/17 at 11:00; Stop 02/28/17 at 11:01; Status DC Potassium Chloride/Dextrose/ Sod Cl 1,000 ml @ 50 mls/hr Q20H IV Last administered on 03/01/17 09:05; Start 02/28/17 at 13:00 Magnesium Sulfate/ Dextrose 100 ml @ 25 mls/hr 1X ONCE IV Last administered on 02/28/17 14:36; Start 02/28/17 at 13:00; Stop 02/28/17 at 16:59; Status DC Pantoprazole Sodium (Protonix Vial) 40 mg DAILYAC IVP Last administered on 08:37; Start 02/28/17 at 13:00 Potassium Chloride 40 meq/ Dextrose 1,020 ml @ 75 mls/hr 1X ONCE IV ; Start 03/01/17 at 10:00; Stop 03/01/17 at 23:35; Status UNV Potassium Chloride 10 meq/ Sodium Chloride 105 ml @ 210 mls/hr Q1HR IV Last administered on 03/01/17 13:50; Start 03/01/17 at 11:00; Stop 03/01/17 at 14 :29; Status DC Info 1 each PRN DAILY PRN MC SEE COMMENTS Last administered on 03/08/17 11:30 ; Start 03/01/17 at 12:00; Stop 03/08/17 at 21:59; Status DC Sodium Chloride 90 meq/Potassium Chloride 50 meq/ Potassium Phosphate 13.6 mmol/ Magnesium Sulfate 10 meq/ Calcium Gluconate 10 meq/ Multivitamins 10 ml/Chromium / Copper/Manganese/ Seleni/Zn 1 ml/ Total Parenteral Nutrition/Amino Acids/ Dextrose/ Fat Emulsion Intravenous 1,512 ml @ 63 mls/hr TPN CONT IV Last administered on 03/01/17 22:38; Start 03/01/17 at 22:00; Stop 03/02/17 at 21 :59; Status DC Sucralfate (Carafate) 1 gm QIDPMEDS PO ; Start 03/02/17 at 10:00; Stop at 10:00; Status Cancel Ondansetron HCl (Zofran) 4 mg PRN Q6HRS PRN IV NAUSEA/VOMITING Last administered on 03/07/17 10:28; Start 03/02/17 at 10:00 Sodium Chloride 110 meq/Potassium Chloride 50 meq/ Potassium Phosphate 18 mmol/ Magnesium Sulfate 10 meq/Calcium Gluconate 10 meq/ Multivitamins 10 ml/Chromium / Copper/Manganese/ Seleni/Zn 1 ml/ Total Parenteral Nutrition/Amino Acids/ Dextrose/ Fat Emulsion Intravenous 1,512 ml @ 63 mls/hr TPN CONT IV Last administered on 03/02/17 22:36; Start 03/02/17 at 22:00; Stop 03/03/17 at 21 :59; Status DC Lidocaine HCl (Glydo (Lidocaine) Jelly) 1 jigar 1X ONCE MM Last administered on 03/02/17 14:10; Start 03/02/17 at 13:30; Stop 03/02/17 at 13:34; Status DC Benzocaine (Hurricaine One) 1 spray 1X ONCE MM Last administered on 15:35; Start 03/02/17 at 13:30; Stop 03/02/17 at 13:34; Status DC Throat Lozenges (Chloraseptic) 1 spray PRN Q2HR PRN PO SORE THROAT; Start at 14:30 Throat Lozenges (Cepacol Sore Throat Lozenge) 1 lana PRN Q2HRS PRN PO SORE THROAT; Start 03/02/17 at 14:30 Enoxaparin Sodium (Lovenox 100mg Syringe) 70 mg Q12HR SQ Last administered on 03/06/17 21:45; Start 03/03/17 at 11:00; Stop 03/07/17 at 09:37; Status DC Labetalol HCl (Normodyne) 20 mg PRN Q2HR PRN IVP HYPERTENSION, SEE COMMENTS; Start 03/03/17 at 10:15; Stop 03/08/17 at 13:34; Status DC Nitroglycerin (Nitro-Dur 0.1mg) 1 patch DAILY TD Last administered on 08:48; Start 03/03/17 at 11:00; Stop 03/04/17 at 11:42; Status DC Sodium Chloride 130 meq/Potassium Chloride 50 meq/ Potassium Phosphate 18 mmol/ Magnesium Sulfate 10 meq/Calcium Gluconate 10 meq/ Multivitamins 10 ml/Chromium / Copper/Manganese/ Seleni/Zn 1 ml/ Total Parenteral Nutrition/Amino Acids/ Dextrose/ Fat Emulsion Intravenous 1,512 ml @ 63 mls/hr TPN CONT IV Last administered on 03/03/17 22:54; Start 03/03/17 at 22:00; Stop 03/04/17 at 21 :59; Status DC Digoxin (Lanoxin) 125 mcg 1X ONCE IV Last administered on 03/04/17 04:03; Start 03/04/17 at 04:00; Stop 03/04/17 at 04:01; Status DC Sodium Chloride 1,000 ml @ 100 mls/hr Q10H IV Last administered on 03/04/17 04:03; Start 03/04/17 at 04:00; Stop 03/04/17 at 13:59; Status DC Digoxin (Lanoxin) 250 mcg 1X ONCE IV Last administered on 03/04/17 05:20; Start 03/04/17 at 05:15; Stop 03/04/17 at 05:17; Status DC Metoprolol Tartrate (Lopressor Vial) 2.5 mg Q6HRS IVP Last administered on 12:12; Start 03/04/17 at 11:00; Stop 03/05/17 at 13:36; Status DC Sodium Chloride 130 meq/Potassium Chloride 50 meq/ Potassium Phosphate 18 mmol/ Magnesium Sulfate 10 meq/Calcium Gluconate 10 meq/ Multivitamins 10 ml/Chromium / Copper/Manganese/ Seleni/Zn 1 ml/ Total Parenteral Nutrition/Amino Acids/ Dextrose/ Fat Emulsion Intravenous 1,512 ml @ 63 mls/hr TPN CONT IV Last administered on 03/04/17 22:12; Start 03/04/17 at 22:00; Stop 03/05/17 at 21 :59; Status DC Lidocaine HCl (Glydo (Lidocaine) Jelly) 1 jigar 1X ONCE MM ; Start 03/05/17 at 07:00; Stop 03/05/17 at 07:01; Status DC Benzocaine (Hurricaine One) 1 spray 1X ONCE MM ; Start 03/05/17 at 07:00; Stop 03/05/17 at 07:01; Status DC Piperacillin Sod/ Tazobactam Sod 3.375 gm/Dextrose 50 ml @ 100 mls/hr Q6HRS IV ; Start 03/05/17 at 12:00; Stop 03/05/17 at 12:00; Status DC Piperacillin Sod/ Tazobactam Sod (Zosyn) 3.375 gm Q6HRS IVP Last administered on 03/08/17 05:09; Start 03/05/17 at 10:00; Stop 03/08/17 at 13:34; Status DC Sodium Chloride 130 meq/Potassium Chloride 50 meq/ Potassium Phosphate 18 mmol/ Magnesium Sulfate 10 meq/Calcium Gluconate 5 meq/ Multivitamins 10 ml/Chromium/ Copper/Manganese/ Seleni/Zn 1 ml/ Total Parenteral Nutrition/Amino Acids/ Dextrose/ Fat Emulsion Intravenous 1,512 ml @ 63 mls/hr TPN CONT IV Last administered on 03/05/17 22:40; Start 03/05/17 at 22:00; Stop 03/06/17 at 21 :59; Status DC Metoprolol Tartrate (Lopressor Vial) 5 mg Q6HRS IVP Last administered on 05:10; Start 03/05/17 at 18:00; Stop 03/08/17 at 13:35; Status DC Sodium Chloride 130 meq/Potassium Chloride 50 meq/ Potassium Phosphate 18 mmol/ Magnesium Sulfate 10 meq/Calcium Gluconate 5 meq/ Multivitamins 10 ml/Chromium/ Copper/Manganese/ Seleni/Zn 1 ml/ Total Parenteral Nutrition/Amino Acids/ Dextrose/ Fat Emulsion Intravenous 1,512 ml @ 63 mls/hr TPN CONT IV Last administered on 03/06/17 21:40; Start 03/06/17 at 22:00; Stop 03/07/17 at 21 :59; Status DC Enoxaparin Sodium (Lovenox 80mg Syringe) 70 mg Q12HR SQ Last administered on 08:38; Start 03/07/17 at 10:00; Stop 03/08/17 at 13:35; Status DC Sodium Chloride 130 meq/Potassium Chloride 50 meq/ Potassium Phosphate 18 mmol/ Magnesium Sulfate 10 meq/Calcium Gluconate 5 meq/ Multivitamins 10 ml/Chromium/ Copper/Manganese/ Seleni/Zn 1 ml/ Total Parenteral Nutrition/Amino Acids/ Dextrose/ Fat Emulsion Intravenous 1,512 ml @ 63 mls/hr TPN CONT IV Last administered on 03/07/17 21:12; Start 03/07/17 at 22:00; Stop 03/08/17 at 21 :59; Status DC Sodium Chloride 110 meq/Potassium Chloride 50 meq/ Potassium Phosphate 18 mmol/ Magnesium Sulfate 10 meq/Calcium Gluconate 5 meq/ Multivitamins 10 ml/Chromium/ Copper/Manganese/ Seleni/Zn 1 ml/ Total Parenteral Nutrition/Amino Acids/ Dextrose/ Fat Emulsion Intravenous 1,512 ml @ 63 mls/hr TPN CONT IV ; Start 03/08/17 at 22:00; Stop 03/08/17 at 22:00; Status DC Active Scripts Active Reported Toprol Xl (Metoprolol Succinate) 50 Mg Tab.er.24h 1 Tab PO DAILY Lasix (Furosemide) 40 Mg Tablet 1 Tab PO DAILY Lisinopril 2.5 Mg Tablet 1 Tab PO DAILY Potassium Chloride 20 Meq Tablet.er 20 Meq PO DAILY Crestor (Rosuvastatin Calcium) 40 Mg Tablet 1 Tab PO DAILY Miralax (Polyethylene Glycol 3350) 17 Gm Powd.pack 1 Pkt PO DAILY PRN Fish Oil 1,000 mg Softgel ([place]-3/Dha/Epa/Fish Oil) 1,000 Mg Capsule 1,000 Mg PO DAILY Vitamin D3 (Cholecalciferol (Vitamin D3)) 1,000 Unit Tablet 1 Tab PO DAILY Multivitamins (Multivitamin) 1 Each Tablet 1 Tab PO DAILY Eliquis (Apixaban) 5 Mg Tablet 5 Mg PO BID Sucralfate 1 Gm Tablet 1 Gm PO QID Sotalol Af (Sotalol Hcl) 80 Mg Tablet 80 Mg PO BID Dronabinol 2.5 Mg Capsule 2.5 Mg PO BID Hydrochlorothiazide Tablet (Hydrochlorothiazide) 25 Mg Tablet 25 Mg PO DAILY Omeprazole 40 Mg Capsule.dr 1 Cap PO DAILY Gave this morning Take in am Vitals/I & O Vital Sign - Last 24 Hours 03/08/17 03/08/17 03/08/17 03/08/17 11:00 15:00 19:15 20:00 Temp 97.9 98.2 97.8 97.9 98.2 97.8 Pulse 104 113 132 Resp 19 18 22 B/P (MAP) 115/57 (76) 119/63 (81) 102/60 (74) Pulse Ox 95 94 97 O2 Delivery Room Air Room Air Room Air Room Air 03/09/17 03/09/17 03/09/17 03:00 07:00 08:00 Temp 97.6 97.6 Pulse 120 116 Resp 16 B/P (MAP) 127/60 (82) Pulse Ox 97 O2 Delivery Room Air Room Air Intake and Output 03/08/17 03/08/17 03/09/17 15:00 23:00 07:00 Intake Total 1490 ml 0 ml Output Total 250 ml 1150 ml 725 ml Balance -250 ml 340 ml -725 ml Nutrition Consultation Dietary Evaluation: Recommendations by RD: PPN/TPN Comments: TPN: 225 g dextrose, 60 g AA, 30 g lipid TPN scheduled to stop after current bag finished infusing, plans to d/c on hospice, likely tomorrow per pallative care nurse Expected Outcomes/Goals: to meet > 70% est nutrition needs via TPN Interpretation of weight loss: >10% in 6 months Malnutrition Findings: Body Fat Depletion (Non Severe: Mild Depletion Weight Status: Appropriate GEENA VELEZ MD Mar 09, 2017 09:20
--- NOTE | 2017-03-09 09:41 | PDOC ---
SUBJECTIVE Subjective Patient does seem to be comfortable, although she does have nausea but no pain OBJECTIVE Vital Signs Vital Signs Date Time Temp Pulse Resp B/P (MAP) Pulse Ox O2 Delivery O2 Flow Rate FiO2 03/09/17 08:00 Room Air 03/09/17 07:00 97.6 116 16 127/60 (82) 97 Room Air 97.6 03/09/17 03:00 120 03/08/17 20:00 Room Air 03/08/17 19:15 97.8 132 22 102/60 (74) 97 Room Air 97.8 03/08/17 15:00 98.2 113 18 119/63 (81) 94 Room Air 98.2 03/08/17 11:00 97.9 104 19 115/57 (76) 95 Room Air 97.9 I & O Intake and Output 03/09/17 07:00 Intake Total 1490 ml Output Total 2125 ml Balance -635 ml Intake Oral 0 ml IV Total 1490 ml Output Urine Total 1275 ml Emesis 850 ml PHYSICAL EXAM Physical Exam No change in exam ASSESSMENT/PLAN Assessment/Plan Patient fully aware and at peace with her decision to go home was hospice which will be done today Problems: JUAN TINEO MD Mar 09, 2017 09:41
--- NOTE | 2017-03-09 10:51 | PDOC3 ---
Discharge Summary* Date of Admission: Feb 28, 2017 Date of Discharge: Mar 09, 2017 Admitting Diagnosis Problems Medical Problems: (1) Hypokalemia Status: Acute (2) Hyponatremia Status: Acute Problems: Final Diagnosis 1-small bowel obstruction due to metastatic colon cancer 2- SVT episode 3-hx A Fib paroxysmal 4-Metastatic colon CA 5- Hx HTN now Bp on low side continue to monitor 6-Hx anemia iron deficiency 7- hypokalemia, hyponatremia replaced 8-malnourished with terminal cancer Problems Medical Problems: (1) Hypokalemia Status: Acute (2) Hyponatremia Status: Acute CONSULTS Oncology, surgery Procedures CT abdomen and pelvis, KUB, chest x-ray, PICC line Brief Hospital Course Ms. Man is a 82 old female who was admitted with small bowel obstruction, she is known to have colon cancer and recently had a PET scan showing new metastatic disease to the liver and intestine, chemotherapy was planned, but she had a very poor prognosis, her treatment for small bowel obstruction included bowel rest and NG tube suction was no improvement, she did not want to proceed with surgery, she is a poor surgical candidate and survival is very poor due to her terminal cancer, she wanted to be on comfort measure and go home was hospice her family was in support of that, TPN was stopped and patient was discharged home was hospice Disposition/Orders: D/C to Home w/ Hospice CONDITION AT DISCHARGE: Comment (terminal) Diet: other (nothing by mouth not able to eat) Scheduled PRN Benzocaine/Menthol (Cepacol Sore Throat Lozenge), 1 GISELE PO PRN Q2HRS PRN for SORE THROAT Ondansetron Hcl/Pf (Ondansetron Hcl 4 Mg/2 Ml Vial), 4 MG PO PRN Q6HRS PRN for NAUSEA/VOMITING Discontinued Medications Apixaban (Eliquis), 5 MG PO BID, (Reported) Cholecalciferol (Vitamin D3) (Vitamin D3), 1 TAB PO DAILY, (Reported) Dronabinol (Dronabinol), 2.5 MG PO BID, (Reported) Furosemide (Lasix), 1 TAB PO DAILY, (Reported) Hydrochlorothiazide (Hydrochlorothiazide Tablet ), 25 MG PO DAILY, (Reported) Lisinopril (Lisinopril), 1 TAB PO DAILY, (Reported) Metoprolol Succinate (Toprol Xl), 1 TAB PO DAILY, (Reported) Multivitamin (Multivitamins), 1 TAB PO DAILY, (Reported) [place]-3/Dha/Epa/Fish Oil (Fish Oil 1,000 mg Softgel), 1,000 MG PO DAILY, ( Reported) Omeprazole (Omeprazole), 1 CAP PO DAILY, (Reported) Polyethylene Glycol 3350 (Miralax), 1 PKT PO DAILY PRN for CONSTIPATION, ( Reported) Potassium Chloride (Potassium Chloride), 20 MEQ PO DAILY, (Reported) Rosuvastatin Calcium (Crestor), 1 TAB PO DAILY, (Reported) Sotalol Hcl (Sotalol Af), 80 MG PO BID, (Reported) Sucralfate (Sucralfate), 1 GM PO QID, (Reported) FOLLOW UP APPOINTMENT: When necessary Time Spent Total time spent with patient [] minutes for coordination of care, counseling, and education. JUAN TINEO MD Mar 09, 2017 10:51
[2017-03-09] MEDS ORDERED: BENZ1LOZ48 PO (10:53)
[2017-03-09] MEDS ORDERED: ONDA4VIA4 PO (10:53)
[2017-03-09 11:00] VITALS: BP 119/61
[2017-03-09 14:54] VITALS: BP 116/55
== END 2017-03-09 14:58 | disposition hospice, home (50) | DRG 374 ==
LOC: ER 08:47 → 4 NORTH 10:03 → 2 NORTH 03-04 04:03
PROVIDERS: ADMIT Internal Medicine; ATTEND Internal Medicine
PROC: 02HV33Z Insertion of Infusion Device into Superior Vena Cava, Percutaneous Approach (ICD-10-PCS; 2017-03-01)
PROC: 0D9670Z Drainage of Stomach with Drainage Device, Via Natural or Artificial Opening (ICD-10-PCS; principal; 2017-03-03)
PROC: 3E0336Z Introduction of Nutritional Substance into Peripheral Vein, Percutaneous Approach (ICD-10-PCS; 2017-03-03)
DX: C18.9 Malignant neoplasm of colon, unspecified (principal); E43 Unspecified severe protein-calorie malnutrition; K56.609 Unspecified intestinal obstruction, unspecified as to partial versus complete obstruction; C77.9 Secondary and unspecified malignant neoplasm of lymph node, unspecified; C78.7 Secondary malignant neoplasm of liver and intrahepatic bile duct; D63.0 Anemia in neoplastic disease; I48.0 Paroxysmal atrial fibrillation; I47.1 Supraventricular tachycardia; E87.1 Hypo-osmolality and hyponatremia; E86.0 Dehydration; E78.00 Pure hypercholesterolemia, unspecified; E78.5 Hyperlipidemia, unspecified; E87.6 Hypokalemia; M19.90 Unspecified osteoarthritis, unspecified site; I10 Essential (primary) hypertension; Z51.5 Encounter for palliative care; K21.9 Gastro-esophageal reflux disease without esophagitis; M81.0 Age-related osteoporosis without current pathological fracture; Z90.49 Acquired absence of other specified parts of digestive tract; Z82.49 Family history of ischemic heart disease and other diseases of the circulatory system; Z80.3 Family history of malignant neoplasm of breast; Z85.038 Personal history of other malignant neoplasm of large intestine; Z87.440 Personal history of urinary (tract) infections; Z68.23 Body mass index [BMI] 23.0-23.9, adult; Z90.710 Acquired absence of both cervix and uterus; Z87.81 Personal history of (healed) traumatic fracture
CPT/HCPCS: 36415; 36569; 74000; 74021; 74176; 80048; 80053; 81001; 82553; 82962; 83690; 83735; 84100; 84478; 84484; 85025; 85027; 85610; 85730; 87086; 87186; 93005; 93306; 96374; 96375; 96376; C9113; J0610; J1160; J1650; J2270; J2405; J2543; J3475; J3490; J7030; 74020; 99285-25